=== PATIENT | male | born 1960 | race Caucasian/White ===

== ENCOUNTER 2017-09-15 18:19 | Emergency (ER) | payer OTHER ==
[~2017-09-15] VITALS: Ht 180.3 cm; Wt 74.8 kg
[2017-09-15 20:29] LABS: Source, Urine Clean Catch
[2017-09-15 20:31] LABS: Bilirubin, Urine Neg (Neg); Blood, Urine Neg (Neg); Glucose Qualitative, Urine 1+ (Neg); Ketones, Urine Neg (Neg); Leukocyte Esterase, Urine 1+ (Neg); Nitrite, Urine Neg (Neg); Protein, Urine 1+ (Neg); Specific Gravity, Urine 1.015 (1.003-1.022); Urobilinogen, Urine NORM (Normal); pH, Urine 6.5 (5.0-8.0)
[2017-09-15 20:38] LABS: Appearance, Urine Clear (Clear); Color, Urine Yellow (P-Yellow)
[2017-09-15 20:51] LABS: Bacteria Not Seen /hpf; Red Blood Cells, Urine Rare /hpf (0-2); Squamous Epithelial Cells Not Seen /hpf (Few); White Blood Cells, Urine Rare /hpf (0-5)
[2017-09-15 20:54] LABS: BASOPHILS ABSOLUTE AUTO 0.04 K/mm3 (0.00-0.23); BASOPHILS PERCENT AUTO 0 % (0-2); EOSINOPHILS ABSOLUTE AUTO 0.22 K/mm3 (0.00-0.68); EOSINOPHILS PERCENT AUTO 2 % (0-6); Hematocrit 34.8 % (37.0-53.0); Hemoglobin 11.5 g/dL (13.5-17.5); IMMATURE GRAN ABSOLUTE AUTO 0.02 K/mm3 (0.00-0.10); IMMATURE GRAN PERCENT AUTO 0 % (0-1); LYMPHOCYTES PERCENT AUTO 32 % (21-46); MONOCYTES ABSOLUTE AUTO 0.84 K/mm3 (0.16-1.47); MONOCYTES PERCENT AUTO 9 % (4-13); Mean Corpuscular HGB 30.8 pg (26.0-34.0); Mean Corpuscular Volume 93 fL (80-100); Mean Platelet Volume 10.4 fL (9.1-12.4); NEUTROPHILS ABSOLUTE AUTO 4.98 K/mm3 (1.96-9.15); NEUTROPHILS PERCENT AUTO 56 % (41-73); Platelet Count 303 K/mm3 (150-400); RDW Coefficient Variation 13.3 % (11.7-14.2); RDW Standard Deviation 45.1 fL (35.1-46.3); Red Blood Cell Count 3.73 M/mm3 (4.30-5.90)
[2017-09-15 21:08] LABS: Albumin, Blood 3.1 g/dL (3.4-5.0); Bilirubin, Total 0.3 mg/dL (0.1-1.0); Calcium, Blood 8.8 mg/dL (8.5-10.1); Creatinine, Blood 2.39 mg/dL (0.60-1.20); Globulin, Blood 3.1 g/dL (2.2-4.0); Potassium, Blood 4.4 mmol/L (3.5-5.5); Total Protein, Blood 6.2 g/dL (6.4-8.2)
== END 2017-09-15 21:29 | disposition home or self-care (01) ==
LOC: ER 18:19
PROVIDERS: Emergency Medicine
DX: N50.812 Left testicular pain (principal); N50.811 Right testicular pain; Z98.890 Other specified postprocedural states; Z88.0 Allergy status to penicillin
CPT/HCPCS: 36415; 80053; 81001; 83690; 85025; 87086; 99283

== ENCOUNTER 2019-02-19 12:07 | Emergency (ER) | payer OTHER ==
[~2019-02-19] VITALS: Ht 180.3 cm; Wt 70.3 kg
[2019-02-19 13:16] LABS: BASOPHILS ABSOLUTE AUTO 0.06 K/mm3 (0.00-0.23); BASOPHILS PERCENT AUTO 1 % (0-2); EOSINOPHILS ABSOLUTE AUTO 0.21 K/mm3 (0.00-0.68); EOSINOPHILS PERCENT AUTO 2 % (0-6); Hematocrit 41.4 % (37.0-53.0); Hemoglobin 13.8 g/dL (13.5-17.5); IMMATURE GRAN ABSOLUTE AUTO 0.05 K/mm3 (0.00-0.10); IMMATURE GRAN PERCENT AUTO 0 % (0-1); LYMPHOCYTES ABSOLUTE AUTO 2.42 K/mm3 (0.84-5.20); LYMPHOCYTES PERCENT AUTO 21 % (21-46); MONOCYTES ABSOLUTE AUTO 1.06 K/mm3 (0.16-1.47); MONOCYTES PERCENT AUTO 9 % (4-13); Mean Corpuscular HGB 31.8 pg (26.0-34.0); Mean Corpuscular HGB Conc 33.3 g/dL (31.5-36.5); Mean Corpuscular Volume 95 fL (80-100); NEUTROPHILS ABSOLUTE AUTO 7.67 K/mm3 (1.96-9.15); NEUTROPHILS PERCENT AUTO 67 % (41-73); Platelet Count 214 K/mm3 (150-400); RDW Coefficient Variation 12.3 % (11.7-14.2); RDW Standard Deviation 42.7 fL (35.1-46.3); Red Blood Cell Count 4.34 M/mm3 (4.30-5.90); White Blood Cell Count 11.47 K/mm3 (4.00-11.30)
[2019-02-19 13:41] LABS: Albumin/Globulin Ratio 1.2 (0.8-1.8); Bilirubin, Total 0.7 mg/dL (0.1-1.0); Bun/Creatinine Ratio 12.1 (12.0-20.0); Calcium, Blood 8.8 mg/dL (8.5-10.1); Creatinine, Blood 1.98 mg/dL (0.60-1.20); Globulin, Blood 3.2 g/dL (2.2-4.0); Potassium, Blood 4.4 mmol/L (3.5-5.5); Total Protein, Blood 7.2 g/dL (6.4-8.2)
[2019-02-19 18:07] LABS: Source, Urine Clean Catch
[2019-02-19 18:13] LABS: Bilirubin, Urine Neg (Neg); Blood, Urine Neg (Neg); Glucose Qualitative, Urine Neg (Neg); Ketones, Urine Neg (Neg); Leukocyte Esterase, Urine Neg (Neg); Nitrite, Urine Neg (Neg); Protein, Urine Neg (Neg); Urobilinogen, Urine NORM (Normal)
[2019-02-19 18:25] LABS: Appearance, Urine Clear (Clear); Color, Urine Yellow (P-Yellow)
[2019-02-19] MEDS ORDERED: ONDA4ODT MM (18:25)
[2019-07-04] MEDS ORDERED: ATOR80 PO (11:26)
[2019-07-04] MEDS ORDERED: ASPI81CH PO (11:26)
== END 2019-02-19 18:47 | disposition home or self-care (01) ==
LOC: ER 12:07
PROVIDERS: Emergency Medicine; Physician Assistant
DX: E86.0 Dehydration (principal); R03.0 Elevated blood-pressure reading, without diagnosis of hypertension; F17.210 Nicotine dependence, cigarettes, uncomplicated
CPT/HCPCS: 36415; 70450; 80053; 81003; 85025; 93005; 93010; 96360; 99284-25; J7120

== ENCOUNTER 2019-12-05 18:40 | Inpatient (IN) | payer OTHER ==
[~2019-12-05] VITALS: Ht 167.6 cm; Wt 70.0 kg
[~2019-12-05 18:40] MED LIST: ATOR80 PO; Aspirin EC81 MG PO; ONDA4ODT MM
[2019-12-05 20:01] LABS: BASOPHILS ABSOLUTE AUTO 0.07 K/mm3 (0.00-0.23); BASOPHILS PERCENT AUTO 1 % (0-2); EOSINOPHILS ABSOLUTE AUTO 0.28 K/mm3 (0.00-0.68); EOSINOPHILS PERCENT AUTO 3 % (0-6); Hematocrit 41.5 % (37.0-53.0); Hemoglobin 13.8 g/dL (13.5-17.5); IMMATURE GRAN ABSOLUTE AUTO 0.03 K/mm3 (0.00-0.10); IMMATURE GRAN PERCENT AUTO 0 % (0-1); LYMPHOCYTES ABSOLUTE AUTO 2.49 K/mm3 (0.84-5.20); LYMPHOCYTES PERCENT AUTO 26 % (21-46); MONOCYTES ABSOLUTE AUTO 1.13 K/mm3 (0.16-1.47); MONOCYTES PERCENT AUTO 12 % (4-13); Mean Corpuscular HGB 31.3 pg (26.0-34.0); Mean Corpuscular HGB Conc 33.3 g/dL (31.5-36.5); Mean Corpuscular Volume 94 fL (80-100); Mean Platelet Volume 11.4 fL (9.1-12.4); NEUTROPHILS ABSOLUTE AUTO 5.78 K/mm3 (1.96-9.15); NEUTROPHILS PERCENT AUTO 59 % (41-73); Platelet Count 215 K/mm3 (150-400); RDW Coefficient Variation 12.4 % (11.7-14.2); RDW Standard Deviation 43.2 fL (35.1-46.3); Red Blood Cell Count 4.41 M/mm3 (4.30-5.90); White Blood Cell Count 9.78 K/mm3 (4.00-11.30)
[2019-12-05 20:21] LABS: Albumin, Blood 3.7 g/dL (3.4-5.0); Albumin/Globulin Ratio 1.2 (0.8-1.8); Bilirubin, Total 0.7 mg/dL (0.1-1.0); Bun/Creatinine Ratio 9.7 (12.0-20.0); Calcium, Blood 8.8 mg/dL (8.5-10.1); Creatinine, Blood 2.37 mg/dL (0.60-1.20); Globulin, Blood 3.2 g/dL (2.2-4.0); Total Protein, Blood 6.9 g/dL (6.4-8.2)
[2019-12-05 21:04] LABS: International Normalized Ratio 0.93
[2019-12-05 21:23] LABS: Cholesterol 100 mg/dL (50-200); HDL Cholesterol 51 mg/dL (>39); LDL/HDL RATIO 0.7; Low Density Lipoprotein Chol 35 mg/dL (0-110); Triglycerides 68 mg/dL (30-160); Very Low Density Lipoprot Chol 13 mg/dL (6-32)
--- NOTE | 2019-12-05 23:27 | NUR ---
ADMIT NOTE RECEIVED HANDOFF FROM ER NURSE PRUDENCIO. PT TRANSFERED TO FLOOR VIA GURNEY. PERSONAL POSSESSIONS IN ROOM WITH PT. PT ORIENTED TO UNIT. CALL BUTTON WITHIN REACH.
--- NOTE | 2019-12-06 05:19 | NUR ---
SHIFT SUMMARY ADMITTED FOR CVA. FULL CODE. ONLY SYMPTOM SO FAR IS EXPRESSIVE APHASIA. HE DEFINITELY DOES NOT WANT TO BE HERE AND IS ONLY HERE AT HIS 'S ASSISTANCE. HEAD CT SHOWED TWO NEW SMALL INFARCTS. EXPECT CAROTID ULTRASOUND, 2D ECHO, MRI OF HEAD TO BE PERFORMED. HE IS ON TELEMETRY: NSR W/PVC'S @ 73 BPM. HE IS ON RA, CARDIAC DIET, INDEPENDENT. aPTT WAS 24.3, CREATININE 2.25. CURRENT EVERY DAY SMOKER. HX: TIA, HTN.
[2019-12-06 05:26] LABS: Albumin, Blood 3.4 g/dL (3.4-5.0); Anion Gap 7 mmol/L (6-16); Blood Urea Nitrogen 23 mg/dL (8-24); Bun/Creatinine Ratio 10.2 (12.0-20.0); CO2, Blood 22 mmol/L (21-32); Calcium, Blood 8.7 mg/dL (8.5-10.1); Chloride, Blood 116 mmol/L (98-108); Creatinine, Blood 2.25 mg/dL (0.60-1.20); Glomerular Filtration Rate 32 (60-); Glucose, Blood 90 mg/dL (70-99); Phosphorus, Blood 3.2 mg/dL (2.5-4.9); Potassium, Blood 3.9 mmol/L (3.5-5.5); Sodium, Blood 145 mmol/L (136-145)
--- NOTE | 2019-12-06 10:22 | NUR ---
Echocardiogram completed by Lupe Chow.
--- NOTE | 2019-12-06 17:16 | NUR ---
SHIFT SUMMARY: NO ACUTE EVENTS TO REPORT THIS SHIFT. PT A&O; IRRITABLE; COOPERATIVE WITH CARE; INDEPENDENT IN ROOM. NO C/O PAIN THIS SHIFT. MRI THIS SHIFT; TWO NEW INFARCTS. SPEECH EVAL THIS SHIFT; PT AMBIVALENT T/O TEST, PER S/T. FAMILY MEMBERS UPDATED ON PLAN VIA TELEPHONE. WCTM.
--- NOTE | 2019-12-07 04:56 | NUR ---
PAINT GRINDER SUMMARY NO ACUTE CHANGES THIS SHIFT. PT AAOX4 AND INDEPENDENT IN ROOM. STILL HAVING EXPRESSIVE APHASIA. CAN SOMETIMES SAY YES/NO BUT MOSTLY COMMUNICATES BY SHAKING HIS HEAD. PT IRRITABLE WITH CARE AT TIMES AND IS EAGER TO GO HOME. PT'S DTR AND BOTH CALLED IN FOR UPDATES TONIGHT. RECIEVED PERMISSION FROM PT TO GIVE INFORMATION. VSS, WILL CONTINUE TO MONITOR.
[2019-12-07] MEDS ORDERED: ELIQUIS5 MG PO (10:05)
[2019-12-07] MEDS ORDERED: WARF5 PO (11:07)
--- NOTE | 2019-12-07 11:27 | NUR ---
PATIENT DISCHARGE: PATIENT DISCHARGED/XFR TO HOME HEALTH THIS SHIFT. MEDICATION RECONCILIATION COMPLETED; MED LIST FAXED TO [facility]. DISCHARGE EDUCATION COMPLETED WITH PATIENT AND SPOUSE. PATIENT TRANSPORTED TO EXIT BY [facility] STAFF WITH WHEELCHAIR AT 1120. PATIENT DEPARTED [facility] VIA PRIVATE AUTO.
== END 2019-12-07 11:21 | disposition home health service (06) | DRG 65 ==
LOC: ER 18:40 → MEDS 18:41 → ENPENDDIS 12-07 09:50 → MEDS 12-07 11:21
PROVIDERS: Emergency Medicine; ADMIT Family Medicine
DX: I63.9 Cerebral infarction, unspecified (principal); E87.0 Hyperosmolality and hypernatremia; R47.01 Aphasia; E78.5 Hyperlipidemia, unspecified; I12.9 Hypertensive chronic kidney disease with stage 1 through stage 4 chronic kidney disease, or unspecified chronic kidney disease; N18.3 Chronic kidney disease, stage 3 (moderate); Z86.73 Personal history of transient ischemic attack (TIA), and cerebral infarction without residual deficits; Z79.82 Long term (current) use of aspirin; F17.210 Nicotine dependence, cigarettes, uncomplicated
CPT/HCPCS: 36415; 70450; 70551; 71045; 80053; 80061; 80069; 85025; 85610; 85730; 92523; 93005; 93010; 93308; 93880; 99285-25; A9270-GY; G0378

== ENCOUNTER 2020-06-24 18:48 | Inpatient (IN) | payer OTHER ==
[~2020-06-24] VITALS: Ht 180.3 cm; Wt 67.3 kg
[~2020-06-24 18:48] MED LIST changes: -ATOR80 PO; -Aspirin EC81 MG PO; +ELIQUIS5 MG PO; +WARF5 PO
[2020-06-24 20:20] LABS: LYMPHOCYTES PERCENT AUTO 14 % (21-46); MONOCYTES PERCENT AUTO 14 % (4-13); Mean Corpuscular HGB 30.2 pg (26.0-34.0); Mean Corpuscular HGB Conc 29.7 g/dL (31.5-36.5); Mean Corpuscular Volume 102 fL (80-100); Mean Platelet Volume 11.7 fL (9.1-12.4); Platelet Count 244 K/mm3 (150-400); RDW Coefficient Variation 14.5 % (11.7-14.2); RDW Standard Deviation 52.8 fL (35.1-46.3); Red Blood Cell Count 1.69 M/mm3 (4.30-5.90); White Blood Cell Count 10.07 K/mm3 (4.00-11.30)
[2020-06-24 20:22] LABS: BASOPHILS ABSOLUTE AUTO 0.05 K/mm3 (0.00-0.23); BASOPHILS PERCENT AUTO 1 % (0-2); EOSINOPHILS ABSOLUTE AUTO 0.35 K/mm3 (0.00-0.68); EOSINOPHILS PERCENT AUTO 4 % (0-6); IMMATURE GRAN ABSOLUTE AUTO 0.06 K/mm3 (0.00-0.10); IMMATURE GRAN PERCENT AUTO 1 % (0-1); LYMPHOCYTES ABSOLUTE AUTO 1.41 K/mm3 (0.84-5.20); MONOCYTES ABSOLUTE AUTO 1.38 K/mm3 (0.16-1.47); NEUTROPHILS PERCENT AUTO 68 % (41-73)
[2020-06-24 20:26] LABS: Hematocrit 16.8 % (37.0-53.0); Hemoglobin 4.9 g/dL (13.5-17.5)
[2020-06-24 20:47] LABS: Albumin, Blood 2.8 g/dL (3.4-5.0); Albumin/Globulin Ratio 0.8 (0.8-1.8); Bilirubin, Total 0.3 mg/dL (0.1-1.0); Bun/Creatinine Ratio 9.6 (12.0-20.0); Calcium, Blood 7.7 mg/dL (8.5-10.1); Creatinine, Blood 9.77 mg/dL (0.60-1.20); Globulin, Blood 3.4 g/dL (2.2-4.0); Potassium, Blood 5.2 mmol/L (3.5-5.5); Total Protein, Blood 6.2 g/dL (6.4-8.2)
[2020-06-24] MEDS ORDERED: ELIQUIS5 MG PO (21:18)
[2020-06-24] MEDS ORDERED: Aspirin EC81 MG PO (21:18)
[2020-06-24] MEDS ORDERED: ATOR40TA PO (21:18)
[2020-06-24 21:29] LABS: Percent Saturation 11.9 % (20.0-50.0)
[2020-06-24 23:41] LABS: International Normalized Ratio 1.03
--- NOTE | 2020-06-25 | NUR ---
PT ADMITTED TO ICU 10 FROM ER. PT IS ALERT, ABLE TO COMMUNICATE NEEDS, THOUGH STATES HE IS POOR HISTORIAN AND HIS IS ABLE TO GIVE HIS HEALTH HISTORY MORE COMPLETELY. HOWEVER, PT ABLE TO PARTICIPATE IN ADMIT PROCESS, SEEMINGLY WO DIFFICULTY. DENIES PAIN, PT NOTED TO HAVE EXERTIONAL SOB, AND IS SOB WHEN REPOSITIONING SELF IN BED. NO DESATURATIONS, PT IS ON ROOM AIR. LUNGS CLEAR UPPER, SL COARSE IN BASES, NO CRACKLES. PT STATES HE QUIT SMOKING ONE MONTH AGO. PT STATES HE HAS HAD SIGNIFICANT ANKLE SWELLING AND SOB FOR SEVERAL WEEKS. 24H URINE COLLECTION WAS INITIATED ON ARRIVAL TO UNIT. URINE NOTED W SOME BLOOD BUT NOT GROSSLY BLOODY. SECOND IV WAS STARTED ESPINOZA BY Daisy HUDDLESTON RN.
--- NOTE | 2020-06-25 05:35 | NUR ---
SECOND UNIT PRBC'S FINISHED. PT STATES HE FEELS LESS SOB- MAYBE. PT CAME IN 0230. VSS, CONT ON RA. DENIES OTHER DISCOMFORT. GI CONSULT CALLED TO , NO SIGN OF BLEEDING. LATE NOTE: DR JAIME SAW PT AT BEDSIDE SHORTLY AFTER ARRIVAL.
[2020-06-25 06:55] LABS: BASOPHILS ABSOLUTE AUTO 0.06 K/mm3 (0.00-0.23); BASOPHILS PERCENT AUTO 1 % (0-2); EOSINOPHILS ABSOLUTE AUTO 0.21 K/mm3 (0.00-0.68); EOSINOPHILS PERCENT AUTO 3 % (0-6); Hematocrit 21.8 % (37.0-53.0); Hemoglobin 6.8 g/dL (13.5-17.5); IMMATURE GRAN ABSOLUTE AUTO 0.04 K/mm3 (0.00-0.10); IMMATURE GRAN PERCENT AUTO 1 % (0-1); LYMPHOCYTES ABSOLUTE AUTO 1.23 K/mm3 (0.84-5.20); LYMPHOCYTES PERCENT AUTO 15 % (21-46); MONOCYTES ABSOLUTE AUTO 1.06 K/mm3 (0.16-1.47); MONOCYTES PERCENT AUTO 13 % (4-13); Mean Corpuscular HGB 29.6 pg (26.0-34.0); Mean Corpuscular HGB Conc 31.2 g/dL (31.5-36.5); Mean Platelet Volume 11.5 fL (9.1-12.4); NEUTROPHILS ABSOLUTE AUTO 5.86 K/mm3 (1.96-9.15); NEUTROPHILS PERCENT AUTO 69 % (41-73); Platelet Count 249 K/mm3 (150-400); RDW Coefficient Variation 15.2 % (11.7-14.2); RDW Standard Deviation 51.5 fL (35.1-46.3); White Blood Cell Count 8.46 K/mm3 (4.00-11.30)
[2020-06-25 06:57] LABS: Mean Corpuscular Volume 95 fL (80-100)
[2020-06-25 07:16] LABS: CPK Creatine Kinase 72 U/L (39-308); Uric Acid, Blood 8.4 mg/dL (3.5-7.2)
[2020-06-25 07:45] LABS: Albumin, Blood 2.8 g/dL (3.4-5.0); Anion Gap 11 mmol/L (6-16); Blood Urea Nitrogen 88 mg/dL (8-24); Bun/Creatinine Ratio 10.1 (12.0-20.0); CO2, Blood 19 mmol/L (21-32); Calcium, Blood 7.7 mg/dL (8.5-10.1); Chloride, Blood 115 mmol/L (98-108); Creatinine, Blood 8.71 mg/dL (0.60-1.20); Glomerular Filtration Rate 7 (60-); Glucose, Blood 98 mg/dL (70-99); Phosphorus, Blood 7.1 mg/dL (2.5-4.9); Potassium, Blood 4.3 mmol/L (3.5-5.5); Sodium, Blood 145 mmol/L (136-145)
--- NOTE | 2020-06-25 08:00 | NUR ---
ASSUMED CARE BEDSIDE REPORT RECIEVED. PT IS LAYING IN BED AWAKE, ALERT, AND ORIENTED. PT IS SLOW TO RESPOND AND SPEAKS SLOWLY. PT FOLLOWING DIRECTIONS APPROPRIATELY. PT DENIES ANY PAIN, DISCOMFORT, OR SOB. PT BECOMES DYSPNIC WITH ANY MOVEMENT IN BED. VITAL SIGNS STABLE. PT ON ROOM AIR. BICARB INFUSING AT 100 ML/HR AND PROTONIX INFUSING AT 10 ML/HR. PT WITH ENGLE TEMP PROBE IN PLACE WITH LUISA OUTPUT NOTED. 24 HR URINE COLLECTION IN PROGRESS, ENGLE BAG AND COLLECTION CANISTER ON ICE. 24 HR URINE TO BE COMPLETED AT 2200 TONIGHT. PT REPOSITIONS SELF IN BED INDEPENDENTLY. PT SPOUSE CALLED FOR UPDATE, UPDATED TO PT CONDITION. PT OK WITH GIVING HER UPDATES, BUT HE DOES NOT WANT TO SPEAK WITH HER AT THIS TIME. WILL CONTINUE TO MONITOR.
[2020-06-25 12:21] LABS: Hematocrit 23.6 % (37.0-53.0); Hemoglobin 7.5 g/dL (13.5-17.5)
--- NOTE | 2020-06-25 17:10 | NUR ---
EGD DR KIRBY AND DAY SURGERY TEAM AT BEDSIDE FOR EGD. PT LAYING ON SIDE, ALERT AT THIS TIME. VITAL SIGNS STABLE.
--- NOTE | 2020-06-25 17:11 | NUR ---
PREOPING PT IN ICU. History, Chart, Medications and Allergies reviewed before start of procedure. Lungs clear T/O to Auscultation. Pre-Op teaching done. Pt verbalizes understanding.
--- NOTE | 2020-06-25 17:38 | NUR ---
06/25/20 1738 DEMETRIO LONG History, Chart, Medications and Allergies reviewed before start of procedure. 3-LEAD EKG REVIEWED WITH PHYSICIAN PRIOR TO START OF PROCEDURE. O2 VIA N/C INTACT THROUGHOUT SEDATION/PROCEDURE. MONITOR INTACT WITH CONTINUOUS PULSE OXIMETRY AND INTERMITTENT BP. PATIENT DETERMINED TO BE ASA APPROPRIATE FOR PROPOFOL SEDATION PRIOR TO START OF PROCEDURE BY
--- NOTE | 2020-06-25 18:11 | NUR ---
SHIFT SUMMARY NO ACUTE CHANGES THIS SHIFT. PT HAS REMAINED ALERT AND ORIENTED. VITAL SIGNS HAVE REMAINED STABLE. PT TOLERATED PO DIET WELL. NO ACUTE SIGNS OF GI BLEEDING NOTED. EGD DONE THIS EVENING. PROTONIX GTT DISCONTINUED PER DR KIRBY. BICARB GTT INFUSING AT 75 ML/HR. ENGLE REMAINS IN PLACE WITH DRAINAGE BAG ON ICE. PT WITH LARGE VOLUME OF PINK TINGED URINE OUTPUT THIS SHIFT. NO FAMILY VISIT TODAY. WILL CONTINUE TO MONITOR AND REPORT OFF TO ONCOMING RN.
--- NOTE | 2020-06-25 20:00 | NUR ---
ASSUMED CARE OF PT AT 1915. REPORT RECEIVED AT BEDSIDE. PT PRESENTS IN BED. ALERT AND ORIENTED PLEASANT AND COOPERATIVE WITH CARE AND ASSESSMENT. NO COMPLAINTS OF GI UPSET AT THIS TIME. IN PROCESS OF 24 HOUR URINE COLLECTION THAT WILL TIME OUT AT 2200 THIS EVENING. WILL REVIEW CHART AND PLAN OF CARE FOR THIS PT.
[2020-06-25 23:40] LABS: Protein, Urine Quantitative 174.6 mg/dL (0.0-11.9)
--- NOTE | 2020-06-26 00:30 | NUR ---
PT REQUIRES SUPPLEMENTAL OXYGEN WHILE ASLEEP. TRENDS TO 87-89 PERCENT SATURATIONS. PT HAS NO S/S BLEEDING OR ANY OTHER ISSUES TO REPORT. ABLE TO MOVE ABOUT IN BED. HAVE ASSISTED WITH PILLOWS WHEN HE NEEDS.
[2020-06-26 03:24] LABS: Hematocrit 21.2 % (37.0-53.0); Hemoglobin 6.7 g/dL (13.5-17.5)
[2020-06-26 03:42] LABS: Albumin, Blood 2.3 g/dL (3.4-5.0); Anion Gap 10 mmol/L (6-16); Blood Urea Nitrogen 68 mg/dL (8-24); Bun/Creatinine Ratio 9.6 (12.0-20.0); CO2, Blood 24 mmol/L (21-32); Calcium, Blood 7.2 mg/dL (8.5-10.1); Chloride, Blood 115 mmol/L (98-108); Creatinine, Blood 7.08 mg/dL (0.60-1.20); Glomerular Filtration Rate 8 (60-); Glucose, Blood 158 mg/dL (70-99); Magnesium, Blood 1.6 mg/dL (1.6-2.4); Phosphorus, Blood 7.1 mg/dL (2.5-4.9); Potassium, Blood 3.8 mmol/L (3.5-5.5); Sodium, Blood 149 mmol/L (136-145)
--- NOTE | 2020-06-26 05:50 | NUR ---
CALL MADE TO DR PRESTON CONCERNING PT HAVING DROP IN HGB FROM PREVIOUS. ORDER RECEIVED FOR ONE UNIT PRBC'S TO BE GIVEN. NO S/S ACTIVE BLEEDING TO NOTE. HAVE COMPLETED 24 HOUR URINE COLLECTION DURING EVENING. SENT TO LAB FOR PROCESSING. PT ABLE TO MOVE ABOUT IN BED ON HIS OWN. ASSISTED NEEDED. WILL CONTINUE TO MONITOR PT, AND WILL REPORT OFF TO ONCOMING RN.
--- NOTE | 2020-06-26 07:30 | NUR ---
ASSUMED CARE BEDSIDE REPORT RECIEVED. PT IS LAYING IN BED AWAKE, ALERT, AND ORIENTED. PT IS PLEASANT, BUT FLAT AFFECT. PT ANSWERS QUESTIONS APPROPRIATELY. PT DENIES ANY PAIN, DISCOMFORT, OR SOB AT THIS TIME. VITAL SIGNS STABLE. PT ON ROOM AIR. PT HYPERTENSIVE. UNIT OF PRBC'S INFUSING AT THIS TIME. ORDERS TO START D5 AT 75 ML/HR NOTED. ENGLE IN PLACE WITH YELLOW URINE OUTPUT NOTED. PT TURNS AND REPOSITIONS SELF IN BED FOR COMFORT. PT WITH DYSPNEA WHEN REPOSITIONING SELF. NO FAMILY PRESENT. WILL CONTINUE TO MONITOR.
--- NOTE | 2020-06-26 14:36 | NUR ---
TRANSFER TO MEDICAL REPORT CALLED VIA PHONE, ALL QUESTIONS ANSWERED. PT TRANSFERED BY BED TO ROOM 350 AT 1415. ALL MEDS AND PT BELONGINGS TAKEN WITH PT.
--- NOTE | 2020-06-26 14:50 | NUR ---
ICU TRANSFER TO SCU 350. PT IS A/O X3-4, ABLE TO RECALL EVENTS OF ADMIT. STATE NO DISCOMFORT. ENGLE CATH D/C'D/DR NEWTON ORDER, PT INSTRUCTED TO USE URINAL. BLE EDEMA MINIMAL LESS THAN 1+, PT STATE MUCH IMPROVED FROM ADMIT. H&H LOW 6.1/21.2, METER ENGINEER REPORT EGD YESTERDAY w NO ACTIVE BLEED, PT RECIEVED ONE UNIT PRBC THIS AM. DR KIRBY CONSULTED FOR GI. GFR 8, DR JAIME MANAGING RENAL FX. IV D5 @ 50 ML/HR CONTINUES VIA ESPINOZA PG.
[2020-06-26 19:20] LABS: PCO2 Arterial 29.6 mmHg (35-45); PO2 Arterial 60.4 mmHg (80-100); pH Blood Arterial 7.45 (7.35-7.45)
--- NOTE | 2020-06-26 20:27 | NUR ---
CARE ASSUMPTION PT BROUGHT TO PCU 15 FROM MEDICAL FLOOR AT APPROX 2020. PT A&OX4. PT AMBULATED INDEPENDENTLY FROM MEDICAL BED TO PCU BED FROM HALLWAY. MONITOR SHOWS, A FIB, HR 160'S. PT DENIES SYMPTOMS WITH ELEVATED HR. VSS. SP02>92% ON RA. WILL CONTINUE TO MONITOR.
--- NOTE | 2020-06-26 20:58 | NUR ---
RAPID HEART RATE AT CHANGE OF SHIFT, PT HEART RATE NOTED TO BE IN THE 160S DURING VITALS. RADIAL PALPATION AND AUSCULTATED HEART RATE WERE FAST AND IRREGULAR. THE DAY HOSPITALIST DR NEWTON WAS INFORMED, AND AN EKG, ABG AND CHEST XRAY ORDERED. EKG SHOWED SVT PER EKG REPORT. HOSPITALIST DR GAMEZ NOTIFIED. HE ORDERED A OT ADENOSINE PUSH, WHICH IS UNABLE TO BE GIVEN ON MED FLOOR. PT DENIED ANY CHEST PAIN, SOB, OR LIGHTHEADEDNESS. NO CHANGES IN MENTATION. RESPIRATORY RATE WAS ELEVATED IN THE 26-30S, BUT VITAL SIGNS OTHERWISE STABLE. DR GAMEZ ORDERED TRANSFER TO PCU. TELE MONITOR PLACED WHILE AWAITING BED ASSIGNMENT, WHICH SHOWED AFIB WITH RVR PER TELE SENIOR BENEFITS ANALYST. REPORT GIVEN TO DELONTE IN PCU. PT TRANSFERED TO [facility] AT 2019.
--- NOTE | 2020-06-26 21:16 | NUR ---
CALL TO CALL TO MD GAMEZ TO CLARIFY ADENOSINE ORDER AND REPORT PT IN AFIB, HR 140's-160's TOUCHING 180's OCCASIONALLY. MD GAMEZ WITH ORDERS TO D/C ADENOSINE ORDER AND GIVE 20 MG IV CARDIZEM PUSH INSTEAD WELL 25 MG PO METOPROLOL IR, SEE ORDERS. ALSO WITH ORDERS FOR STRAIGHT CATH Q6H D/T BLADDER SCAN SHOWING 563 MLS. ALSO WITH ORDERS FOR Q4H CBG MONITORING D/T D5 DRIP INFUSING. WILL CONTINUE TO MONITOR.
--- NOTE | 2020-06-26 23:30 | NUR ---
HR / CALL FROM MD CALL FROM MD GAMEZ TO RE-EVALUATE PT HR. MD INFORMED OF PT HR DECREASE FROM 160's TO 90's-110 AFTER IV CARDIZEM PUSH & PO METOPROLOL PER ORDERS, BUT HR & RHYTHM THEN INCREASED AGAIN TO 130's-140's & APPEARS TO BE AFLUTTER. W/ NEW ORDERS FOR 25MG PO METOPROLOL Q8H, FIRST DOSE NOW.
--- NOTE | 2020-06-27 02:00 | NUR ---
SINUS RHYTHM PT CONVERTED FROM AFIB TO SR AT APPROX 0130. HR 70'S. THIS RN NOTIFIED BY AGNIESZKA FROM TELEMETRY. WILL CONTINUE TO MONITOR
[2020-06-27 04:32] LABS: BASOPHILS ABSOLUTE AUTO 0.05 K/mm3 (0.00-0.23); BASOPHILS PERCENT AUTO 1 % (0-2); EOSINOPHILS ABSOLUTE AUTO 0.43 K/mm3 (0.00-0.68); EOSINOPHILS PERCENT AUTO 4 % (0-6); Hematocrit 24.4 % (37.0-53.0); Hemoglobin 7.8 g/dL (13.5-17.5); IMMATURE GRAN ABSOLUTE AUTO 0.05 K/mm3 (0.00-0.10); IMMATURE GRAN PERCENT AUTO 1 % (0-1); LYMPHOCYTES ABSOLUTE AUTO 1.52 K/mm3 (0.84-5.20); LYMPHOCYTES PERCENT AUTO 14 % (21-46); MONOCYTES ABSOLUTE AUTO 1.78 K/mm3 (0.16-1.47); MONOCYTES PERCENT AUTO 17 % (4-13); Mean Corpuscular HGB 29.7 pg (26.0-34.0); Mean Corpuscular Volume 93 fL (80-100); Mean Platelet Volume 11.6 fL (9.1-12.4); NEUTROPHILS ABSOLUTE AUTO 6.95 K/mm3 (1.96-9.15); NEUTROPHILS PERCENT AUTO 64 % (41-73); Platelet Count 230 K/mm3 (150-400); RDW Coefficient Variation 15.9 % (11.7-14.2); RDW Standard Deviation 53.1 fL (35.1-46.3); Red Blood Cell Count 2.63 M/mm3 (4.30-5.90); White Blood Cell Count 10.78 K/mm3 (4.00-11.30)
[2020-06-27 04:48] LABS: Albumin, Blood 2.3 g/dL (3.4-5.0); Anion Gap 9 mmol/L (6-16); Blood Urea Nitrogen 64 mg/dL (8-24); Bun/Creatinine Ratio 10.2 (12.0-20.0); CO2, Blood 24 mmol/L (21-32); Calcium, Blood 7.4 mg/dL (8.5-10.1); Chloride, Blood 112 mmol/L (98-108); Creatinine, Blood 6.29 mg/dL (0.60-1.20); Glomerular Filtration Rate 10 (60-); Glucose, Blood 100 mg/dL (70-99); Magnesium, Blood 1.5 mg/dL (1.6-2.4); Phosphorus, Blood 4.9 mg/dL (2.5-4.9); Potassium, Blood 3.4 mmol/L (3.5-5.5); Sodium, Blood 145 mmol/L (136-145)
--- NOTE | 2020-06-27 07:58 | NUR ---
SHIFT SUMMARY PT TRANSFERRED TO PCU FROM MEDICAL FLOOR THIS SHIFT. SEE CARE ASSUMPTION NOTE. PT A&OX4. SP02>90% ON RA. TELEMTRY READ AFIB BEGINNING OF SHIFT, PT CONVERTED TO SR AT APPROX 0200, SEE PREVIOUS NOTE. PT DENIES ABILITY TO VOID. PERFORMED BLADDER SCAN WHICH SHOWED 563 MLS. USED A STRAIGHT CATHETER, DRAINED 600 MLS. PT DENIES PAIN. PT ASKED FOR AND ATE SNACKS TWICE DURING NIGHT. SLEPT T/O MOST OF SHIFT AFTER ARRIVAL TO PCU. D5 INFUSING PER EMAR. WILL CONTINUE TO MONITOR.
--- NOTE | 2020-06-27 10:21 | NUR ---
The pt awakens easily to verbal stimuli, states that he wants to go back to sleep. Said that he has not voided at all; Noted last urine output was 2330 last night and I cleared over 1000cc from the IV pump this morning. Bladder scan done, and noted 590cc. Pt attempting to stand and use urinal at the bedside. He denies any discomfort, fullness or pain. D5W infusing at 75cc/hour. Pt was able to take oral medications without difficulty.
--- NOTE | 2020-06-27 10:59 | NUR ---
PT was only able to void about 50 cc after bladder scan revealed 590 cc. Straight catheterization removed 750 cc clear yellow urine.
--- NOTE | 2020-06-27 14:40 | NUR ---
Voided 100 cc clear light yellow urine. States had BM on toilet, flushed it and didn't really look at it, so uncertain of the color/consistency of it.
--- NOTE | 2020-06-27 15:25 | NUR ---
Galo is lying on his right side, HOB at 15 degrees. No dyspnea, no c/o discomfort or shortness of breath. Vital signs stable. Took oral medications with water without any difficulty. NO needs voiced at this time.
[2020-06-27 16:07] LABS: A/G RATIO 1.4 (0.7-1.7); ALBUMIN 3.1 g/dL (2.9-4.4); ALPHA-1-GLOBULIN 0.3 g/dL (0.0-0.4); ALPHA-2-GLOBULIN 0.8 g/dL (0.4-1.0); BETA GLOBULIN 0.7 g/dL (0.7-1.3); GAMMA GLOBULIN 0.5 g/dL (0.4-1.8); GLOBULIN, TOTAL 2.3 g/dL (2.2-3.9); IMMUNOGLOBULIN A, QN, SERUM 169 mg/dL (90-386); IMMUNOGLOBULIN G, QN, SERUM 577 mg/dL (603-1613); IMMUNOGLOBULIN M, QN, SERUM 94 mg/dL (20-172); M-SPIKE Not Observed g/dL (Not Observed); PROTEIN, TOTAL, SERUM 5.4 g/dL (6.0-8.5)
--- NOTE | 2020-06-27 17:28 | NUR ---
Explained to pt need for urinary catheter. Pt lying in bed, able to independently reposition to supine position. Dc catheter inserted using aseptic technique. Pt tolerated it well, and immediately noted 600 cc clear yellow urine evacuated. PT now sitting up in bed, eating dinner and talking on the phone.
--- NOTE | 2020-06-27 18:37 | NUR ---
summary Alert, oriented and independently amublatory in the room and to the bathroom. Good appetite, had bowel movement today, pt states he thinks it was normal. Unable to void except for twice, 50-100 cc at a time. Straight cath once for 600cc urine, and this evening placed Dc catheter and have drained over 1 liter since its insertion one hour ago. Pt is getting IV lasix BID. No c/o pain, no c/o dyspnea/shortness of breath. Has remained in normal sinus rhythm throughout the shift. Blood pressure stable. Taking medications by mouth without any difficulty.
--- NOTE | 2020-06-27 20:25 | NUR ---
PT HANDOFF REPORT GIVEN TO MARC ARAMBULA AND MARC THOMPSON TO ASSUME PT CARE.
--- NOTE | 2020-06-27 20:26 | NUR ---
ASSUMED CARE OF PATIENT AT THIS TIME. RECIEVED REPORT FROM NURSE TYLER AND VONNIE. PATIENT IS CURRENTLY IN BED SLEEPING. CALL LIGHT IS WITHIN REACH.
--- NOTE | 2020-06-27 22:20 | NUR ---
ASSUMED CARE RECIEVED REPORT FROM MARC ARAMBULA AND MARC THOMPSON.
[2020-06-28 05:20] LABS: Base Excess Venous -2.5 mmol/L; PO2 Venous 41.8 mmHg (38-42); pH Blood Venous 7.35 (7.34-7.37)
[2020-06-28 05:25] LABS: BASOPHILS ABSOLUTE AUTO 0.06 K/mm3 (0.00-0.23); BASOPHILS PERCENT AUTO 1 % (0-2); EOSINOPHILS ABSOLUTE AUTO 0.49 K/mm3 (0.00-0.68); EOSINOPHILS PERCENT AUTO 4 % (0-6); Hematocrit 28.5 % (37.0-53.0); Hemoglobin 8.8 g/dL (13.5-17.5); IMMATURE GRAN ABSOLUTE AUTO 0.08 K/mm3 (0.00-0.10); IMMATURE GRAN PERCENT AUTO 1 % (0-1); LYMPHOCYTES ABSOLUTE AUTO 1.31 K/mm3 (0.84-5.20); LYMPHOCYTES PERCENT AUTO 11 % (21-46); MONOCYTES PERCENT AUTO 12 % (4-13); Mean Corpuscular HGB 29.1 pg (26.0-34.0); Mean Corpuscular HGB Conc 30.9 g/dL (31.5-36.5); Mean Corpuscular Volume 94 fL (80-100); Mean Platelet Volume 11.7 fL (9.1-12.4); NEUTROPHILS ABSOLUTE AUTO 8.32 K/mm3 (1.96-9.15); NEUTROPHILS PERCENT AUTO 71 % (41-73); Platelet Count 248 K/mm3 (150-400); RDW Coefficient Variation 15.5 % (11.7-14.2); RDW Standard Deviation 52.9 fL (35.1-46.3); Red Blood Cell Count 3.02 M/mm3 (4.30-5.90); White Blood Cell Count 11.66 K/mm3 (4.00-11.30)
[2020-06-28 05:41] LABS: Albumin, Blood 2.7 g/dL (3.4-5.0); Anion Gap 9 mmol/L (6-16); Blood Urea Nitrogen 66 mg/dL (8-24); Bun/Creatinine Ratio 10.2 (12.0-20.0); CO2, Blood 24 mmol/L (21-32); Calcium, Blood 7.9 mg/dL (8.5-10.1); Chloride, Blood 114 mmol/L (98-108); Creatinine, Blood 6.44 mg/dL (0.60-1.20); Glomerular Filtration Rate 9 (60-); Glucose, Blood 96 mg/dL (70-99); Magnesium, Blood 1.8 mg/dL (1.6-2.4); Phosphorus, Blood 5.2 mg/dL (2.5-4.9); Sodium, Blood 147 mmol/L (136-145)
--- NOTE | 2020-06-28 06:11 | NUR ---
SHIFT SUMMARY PT SLEPT T/O SHIFT. OXYGEN SATURATION WAS 88% ON RA. PT PUT ON 2-3 L OF OXYGEN VIA NASAL CANULA. OXYGEN SATURATION MAINTAINED ABOVE 92% ON 2-3 LITER OF OXYGEN. HR STABLE. BP STABLE. PT REPORTS NO CHEST PAIN OR PRESSURE. PT ALERT AND ORIENTED AND ABLE TO MOVE INDEPENDENTLY. WILL CONTINUE TO MONITOR UNTIL REPORT GIVEN TO DAYSHIFT RN.
--- NOTE | 2020-06-28 19:16 | NUR ---
PT AOX4 AND COOPERATIVE OF CARE. PT HAS BEEN IN BED ALL DAY RESTING. PT DENIED ANY PAIN AND CAN CALL APPROPRIATELY. PT'S ENGLE IS FLOWING WELL. NO DISTRESS NOTED WILL CONTINUE TO MONITOR.
--- NOTE | 2020-06-29 06:28 | NUR ---
PT HANDOFF REPORT GIVEN TO MARC THOMPSON ON MEDICAL FLOOR. PT TRANSPORTED TO MEDICAL FLOOR, ROOM 355 BY BED WITH MARC SCOTT AND RAMSEY ALVARADO.
--- NOTE | 2020-06-29 06:37 | NUR ---
SHIFT SUMMARY PT SLEPT T/O SHIFT. PT ALERT AND ORIENTED. PT REPORTS NO CP OR PRESSURE. ENGLE PATENT AND TO GRAVITY DRAIN. PT INDEPENDENT WITHIN ROOM. OXYGEN SATURATION MAINTAINED ABOVE 92% ON RA. 2 L OF OXYGEN NEEDED PRN D/T OXYGEN SATURATION DECREASING TO 89% WHILE SLEEPING. HR STABLE. BP STABLE, MAP ABOVE 65. PT REPORTS NO CP OR PRESSURE. PT TRANSPORTED TO MEDICAL FLOOR AT 0640 TO ROOM 355 WITH MARC SCOTT. REPORT GIVEN TO MARC THOMPSON.
[2020-06-29 06:39] LABS: Hematocrit 30.4 % (37.0-53.0); Hemoglobin 9.3 g/dL (13.5-17.5)
--- NOTE | 2020-06-29 06:44 | NUR ---
PT ARRIVED FROM PCU VIA BED AT THIS TIME REPORT RECIEVED FROM MARC SCOTT. PATIENT ORIENTED TO UNIT AND CALL LIGHT IN REACH. PATIENT CURRENTLY SITTING UP IN BED WATCHING TV. DENIED ANY NEEDS OR PAIN AT THIS TIME. ENGLE IS PATENT AND DRAINING. TELE IS SINUS 88 WITH FREQUENT PAC'S PER ORTHOPAEDIC TECHNOLOGIST. WILL HAND OFF TO ONCOMING SHIFT ONCE THEY ARRIVE.
[2020-06-29 06:58] LABS: Albumin, Blood 2.6 g/dL (3.4-5.0); Anion Gap 11 mmol/L (6-16); Blood Urea Nitrogen 65 mg/dL (8-24); Bun/Creatinine Ratio 11.7 (12.0-20.0); CO2, Blood 21 mmol/L (21-32); Chloride, Blood 112 mmol/L (98-108); Creatinine, Blood 5.57 mg/dL (0.60-1.20); Glomerular Filtration Rate 11 (60-); Glucose, Blood 102 mg/dL (70-99); Magnesium, Blood 1.7 mg/dL (1.6-2.4); Sodium, Blood 144 mmol/L (136-145)
--- NOTE | 2020-06-29 09:10 | NUR ---
TELE FARMWORKER [employer] REPORTS HR 150. DR GAO IN ROOM. SHE SAYS SHE WILL LOOK AT THE STRIPS DOWNSTAIRS AND EVALUATE. PATIENT IS ASSYMPTOMATIC. METOPROLOL GIVEN PER ORDERS AND VERBAL INTRUCTION FROM DR GAO. APICAL HR 54.
--- NOTE | 2020-06-29 11:09 | NUR ---
telemetry update: school bus monitor reports HR is in 80's and has sustained since 1000
--- NOTE | 2020-06-29 17:26 | NUR ---
SHIFT SUMMARY PATIENT HAD EPISODE OF HR 150'S, TELE HOME SERVICE TECHNICIAN REPORTED SR WITH FREQUENT PVCS, DR GAO SAID IT LOOKED LIKE AFIB, BP REMAINS LOWER RANGE 90-100'S SYSTOLIC. HR APICALLY IS RATE IN 50'S. METOPROLOL GIVEN TODAY PER DR GAO. SHE SAID TO TAKE IT CASE BY CASE EACH TIUME IF THERE WERE CONCERNS TO CONTACT THE HOSPITALIST SUPERVISOR HAND SILVERING RATHER THAT PUT PARAMETERS ON IT. HE HAS DENIED CP, SOB, OR ANY OTHER COMPLAINTS TODAY. IND IN ROOM
[2020-06-30 05:05] LABS: Hematocrit 31.1 % (37.0-53.0); Hemoglobin 9.6 g/dL (13.5-17.5)
[2020-06-30 05:31] LABS: Albumin, Blood 2.7 g/dL (3.4-5.0); Anion Gap 11 mmol/L (6-16); Blood Urea Nitrogen 64 mg/dL (8-24); Bun/Creatinine Ratio 12.5 (12.0-20.0); CO2, Blood 20 mmol/L (21-32); Calcium, Blood 8.2 mg/dL (8.5-10.1); Chloride, Blood 111 mmol/L (98-108); Creatinine, Blood 5.13 mg/dL (0.60-1.20); Glomerular Filtration Rate 12 (60-); Glucose, Blood 116 mg/dL (70-99); Magnesium, Blood 1.9 mg/dL (1.6-2.4); Potassium, Blood 4.1 mmol/L (3.5-5.5); Sodium, Blood 142 mmol/L (136-145)
--- NOTE | 2020-06-30 05:54 | NUR ---
PT A&OX4, ABLE TO MAKE NEEDS KNOWN, PLEASANT AND COOPERATIVE TO CARE. HELD 0000 LOPRESSOR DOSE ORDERED BY DR. LOWE D/T SYSTOLIC BP OF 101. PT WAS ALSO REPORTED TO HAVE A 7 BEAT VTACH BY SELF PAY SPECIALIST BUT IMMEDIATELY RETURNED TO NORMAL SR. WENT TO ASSESS PT, ASYMPTOMATIC. PATIENT HAD NO C/O PAIN OR ANY DISCOMFORT THIS SHIFT. RESTING WELL IN ROOM, INDEPENDENT. ENGLE CATH PATENT, DRAINING WELL. CALL LIGHT WITHIN REACH. WILL CONTINUE TO MONITOR PATIENT. WILL REPORT TO ONCOMING RN.
[2020-06-30 09:43] LABS: ANTIGLOMERULAR BM AB 2 units (0-20)
--- NOTE | 2020-06-30 17:30 | NUR ---
Shift Summary A/Ox4, pleasant and cooperative with care. at bedside intermittently throughout the day. Denies pain, up ad nicola in room. Dc patent and draining clear yellow output. Tele: SR richardson PAC's @ 68. No v-tach this shift. Appetite is good. No additional concerns. Will continue to monitor.
--- NOTE | 2020-06-30 19:30 | NUR ---
ASSUMED CARE. AOX3, IN GOOD SPIRITS. DENIES ANY PAIN OR DISCOMFORT. VS WNL, AFEBRILE. GOOD APPETITE. NO EDEMA. CATHETER PATENT AND DRAINING. LUNG SOUNDS CLEAR. TELE REPORTS SINUS IN THE 70'S. NO CHEST PAIN NOTED. SKIN PWD, NO RASH OR REDENSS. INDPENDENT IN THE ROOM. CALL LIGHT IN REACH.
--- NOTE | 2020-07-01 05:33 | NUR ---
SHIFT SUMMARY: LESIA HAS SLEPT MOST OF THE SHIFT EXCEPT WHEN INTERVENTIONS ARE BEING DONE. VS ARE WNL, AFEBRILE. DENIED ANY COMPLAINTS OR CONCERNS. CATHETER REMAINED PATENT. NO ACUTE CHANGES TO NOTE THIS SHIFT. CALL LIGHT REMAINED IN REACH.
[2020-07-01 07:03] LABS: Albumin, Blood 2.7 g/dL (3.4-5.0); Anion Gap 10 mmol/L (6-16); Blood Urea Nitrogen 66 mg/dL (8-24); Bun/Creatinine Ratio 13.3 (12.0-20.0); CO2, Blood 21 mmol/L (21-32); Calcium, Blood 8.2 mg/dL (8.5-10.1); Chloride, Blood 112 mmol/L (98-108); Creatinine, Blood 4.96 mg/dL (0.60-1.20); Glomerular Filtration Rate 13 (60-); Glucose, Blood 129 mg/dL (70-99); Magnesium, Blood 1.9 mg/dL (1.6-2.4); Phosphorus, Blood 5.1 mg/dL (2.5-4.9); Potassium, Blood 4.2 mmol/L (3.5-5.5); Sodium, Blood 143 mmol/L (136-145)
--- NOTE | 2020-07-01 08:02 | NUR ---
Blood pressure 91/[address] with [address] Phillips. Received telephone order to hold Norvasc and administer Metoprolol.
[2020-07-01 13:08] LABS: ANA DIRECT Negative (Negative); ANTIMYELOPEROXIDASE (MPO) ABS <9.0 U/mL (0.0-9.0); ANTIPROTEINASE 3 (PR-3) ABS <3.5 U/mL (0.0-3.5); ATYPICAL PANCA <1:20 titer (Neg:<1:20); CYTOPLASMIC (C-ANCA) <1:20 titer (Neg:<1:20); PERINUCLEAR (P-ANCA) <1:20 titer (Neg:<1:20)
--- NOTE | 2020-07-01 17:58 | NUR ---
Shift Summary Encouraged patient to ambulate in hallway with mask on. Patient declined, when asked why, patient stated "I'm just lazy." Explained the need to move about when hospitalized to improve condition. Patient verbalized understanding; however, continues to decline ambulation in hallway. Prefers to sit and watch TV as he does at home. Up to bathroom independently, had bowel movement today. Per patient report, soft, med, brown stool. No changes, uneventful day.
--- NOTE | 2020-07-01 20:10 | NUR ---
ASSUMED CARE. LESIA HAD A GOOD DAY. REPORTS THAT HE HAD NO CHANGES TODAY. OVERALL ASSESSMENT IS BENIGN EXCEPT FOR URINARY CATHETER PATENT AND DRAINING CLEAR YELLOW URINE. GOOD APPETITE. ENCOURAGE GETTING UP TO AT LEAST THE CHAIR FOR A WHILE, HE SAID HE WAS FINE. DENIES ANY OTHER NEEDS OR CONCERNS. CALL LIGHT IN REACH.
[2020-07-02 04:48] LABS: Hematocrit 34.8 % (37.0-53.0); Hemoglobin 10.7 g/dL (13.5-17.5)
[2020-07-02 05:05] LABS: Albumin, Blood 2.9 g/dL (3.4-5.0); Anion Gap 9 mmol/L (6-16); Blood Urea Nitrogen 68 mg/dL (8-24); Bun/Creatinine Ratio 13.4 (12.0-20.0); CO2, Blood 21 mmol/L (21-32); Calcium, Blood 8.5 mg/dL (8.5-10.1); Chloride, Blood 110 mmol/L (98-108); Creatinine, Blood 5.06 mg/dL (0.60-1.20); Glomerular Filtration Rate 12 (60-); Glucose, Blood 95 mg/dL (70-99); Magnesium, Blood 2.3 mg/dL (1.6-2.4); Phosphorus, Blood 6.2 mg/dL (2.5-4.9); Potassium, Blood 4.6 mmol/L (3.5-5.5); Sodium, Blood 140 mmol/L (136-145)
--- NOTE | 2020-07-02 06:28 | NUR ---
SHIFT SUMMARY: LESIA HAD AN UNEVENTFUL NIGHT. VS WNL, AFEBRILE. TOOK MEDS WITH NO ISSUES. CATHETER REMAINED PATIENT. SLEPT WELL. ENCOURAGED AMBULATION, DID GET UP ONCE TO CLOSE THE DOOR BUT WAS BACK IN BED. DENIED ANY NEEDS ALL SHIFT. CALL LIGHT IN REACH.
--- NOTE | 2020-07-02 07:15 | NUR ---
ASSUMED CARE OF PT- BEDSIDE REPORT COMPLETED WITH NIGHT RN KRUNAL. PT ALERT AND ORIENTED INDEPENDENT IN THE ROOM. PT LIKES LATA CRACKERS AND COFFEE OTHERWISE PER REPORT HE DOES NOT CALL FOR ANY NEEDS. PT IN BED CALL LIGTH IN REACH, NO S&S OF DISTRESS NOTED AT THE TIME OF SHIFT CHANGE WILL CTM.
[2020-07-02 11:04] LABS: Creatinine, Blood 4.92 mg/dL (0.60-1.20)
[2020-07-03 06:00] LABS: Albumin, Blood 2.8 g/dL (3.4-5.0); Anion Gap 10 mmol/L (6-16); Blood Urea Nitrogen 76 mg/dL (8-24); Bun/Creatinine Ratio 14.6 (12.0-20.0); CO2, Blood 20 mmol/L (21-32); Calcium, Blood 8.3 mg/dL (8.5-10.1); Chloride, Blood 109 mmol/L (98-108); Creatinine, Blood 5.22 mg/dL (0.60-1.20); Glomerular Filtration Rate 11 (60-); Glucose, Blood 131 mg/dL (70-99); Magnesium, Blood 2.3 mg/dL (1.6-2.4); Phosphorus, Blood 7.1 mg/dL (2.5-4.9); Potassium, Blood 4.3 mmol/L (3.5-5.5); Sodium, Blood 139 mmol/L (136-145)
--- NOTE | 2020-07-03 07:00 | NUR ---
Patient gave student nurse Deandre Ford permission for care
[2020-07-03 14:01] LABS: Hematocrit 34.9 % (37.0-53.0); Hemoglobin 10.5 g/dL (13.5-17.5)
--- NOTE | 2020-07-03 16:24 | NUR ---
PT RETURNED FROM PROCEDURE, ALERT, ORIENTED AND ASKING FOR COFFEE. PT INDEPENDENTLY AMBULATING IN THE ROOM ALREADY, ENGLE CATH IN PLACE PATENT AND DRAINING CLEAR YELLOW URINE.
--- NOTE | 2020-07-03 16:25 | NUR ---
CALLED MARY ELLEN IN DIALYSIS TO SEE IF SHE KNOWS OF ANY PLANS TO DIALZE TONIGHT. IF SHE DOES NOT THEN WILL CALL DR JAIME. AWAITING A RETURN CALL FRON DEVELOPMENTAL SERVICES WORKER DELONDA.
--- NOTE | 2020-07-03 16:36 | NUR ---
RECIEVED A CALL FROM MARY ELLEN IN DIALYSIS PT TO BE DIALIZED FIRST THING IN THE MORNING. POST PROCEDURE VITALS BEING DONE AT THIS TIME.
--- NOTE | 2020-07-03 17:35 | NUR ---
SHIFT SUMMARY- PT ALERT AND ORIENTED, INDEPENDENT IN THE ROOM. ENGLE IN P[LACE PATENT AND DRAINING CLEAR YELLOW URINE. PT HAD A PERMACATH PLACED TODAY, PLAN IS FOR THE PT TO RECIEVE DIALYSIS TOMORROW MORNING FOR THE FIRST TIME. POST OP VITALS BEING DONE AT THIS TIME. SATS GREATER THAN 90% ON ROOM AIR. 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 PT CURRENTLY SITTING UP IN A CHAIR CALL LIGHT AT THE BEDSIDE, PLAYING A GAME ON HIS PHONE AND LISTENING TO THE TV. PT ON TELE RUNNING SINUS 68 AT THIS TIME PER GLUING MACHINE OPERATOR AUTOMATIC JOIE. WILL PASS ALL ON IN REPORT TO NIGHT RN.
--- NOTE | 2020-07-04 04:47 | NUR ---
PHOTO CHECKER SUMMARY NO ACUTE CHANGES NOTED TO PT THIS SHIFT. A&OX4, PLEASANT AND COOPERATIVE TO CARE. VSS, NO C/O PAIN OR DISCOMFORT. DRESSING TO PERMACATH TO R CHEST WALL CDI, DENIES ANY DISCOMFORT TO AA. ENGLE CATH PATENT AND DRAINING WELL. ON TELE SR 70's. DENIES CHEST PAIN OR SOB. DENIES N&V. WILL CONTINUE TO MONITOR PT. WILL REPORT TO ONCOMING RN.
[2020-07-04 05:14] LABS: BASOPHILS ABSOLUTE AUTO 0.08 K/mm3 (0.00-0.23); BASOPHILS PERCENT AUTO 1 % (0-2); EOSINOPHILS ABSOLUTE AUTO 0.16 K/mm3 (0.00-0.68); EOSINOPHILS PERCENT AUTO 2 % (0-6); Hemoglobin 10.8 g/dL (13.5-17.5); IMMATURE GRAN ABSOLUTE AUTO 0.16 K/mm3 (0.00-0.10); IMMATURE GRAN PERCENT AUTO 2 % (0-1); LYMPHOCYTES PERCENT AUTO 18 % (21-46); MONOCYTES ABSOLUTE AUTO 1.21 K/mm3 (0.16-1.47); MONOCYTES PERCENT AUTO 12 % (4-13); Mean Corpuscular HGB 30.5 pg (26.0-34.0); Mean Corpuscular HGB Conc 31.8 g/dL (31.5-36.5); Mean Corpuscular Volume 96 fL (80-100); Mean Platelet Volume 11.7 fL (9.1-12.4); NEUTROPHILS PERCENT AUTO 66 % (41-73); Platelet Count 256 K/mm3 (150-400); RDW Coefficient Variation 15.4 % (11.7-14.2); RDW Standard Deviation 53.8 fL (35.1-46.3); Red Blood Cell Count 3.54 M/mm3 (4.30-5.90); White Blood Cell Count 10.11 K/mm3 (4.00-11.30)
[2020-07-04 05:49] LABS: Albumin, Blood 2.9 g/dL (3.4-5.0); Anion Gap 10 mmol/L (6-16); Blood Urea Nitrogen 81 mg/dL (8-24); Bun/Creatinine Ratio 16.1 (12.0-20.0); CO2, Blood 21 mmol/L (21-32); Calcium, Blood 8.2 mg/dL (8.5-10.1); Chloride, Blood 109 mmol/L (98-108); Creatinine, Blood 5.04 mg/dL (0.60-1.20); Glomerular Filtration Rate 13 (60-); Glucose, Blood 85 mg/dL (70-99); Magnesium, Blood 2.3 mg/dL (1.6-2.4); PSA, %Free 11.4 %; PSA, Free 0.087 ng/mL; Phosphorus, Blood 7.1 mg/dL (2.5-4.9); Potassium, Blood 4.2 mmol/L (3.5-5.5); Prostate Specific Antigen 0.764 ng/mL (0.000-4.000); Sodium, Blood 140 mmol/L (136-145)
--- NOTE | 2020-07-04 13:00 | NUR ---
Pt to Dialysis alet and affect good. First time dialysis treatment. Pt sogned consent, oreintation to protecting his catheter and the process. pt demonstrated understanding of dialysis treament.
--- NOTE | 2020-07-04 15:07 | NUR ---
pt stable site stable pt returned to room
--- NOTE | 2020-07-04 15:16 | NUR ---
site patent pt alert no dyspnea or pain
--- NOTE | 2020-07-04 18:20 | NUR ---
PT IS AOX4, VERY PLEASENT AND COOPERATIVE. PT HAS NEW PERMA CATH ON THE RIGHT HAD DIALYISIS FOR THE FIRST TIME TODAY. PT TOLERATED WELL. PT HAS A ENGLE CATH THAT IS STILL PATENT AND DRAINING. PT TREATED PER EMAR. PT IS RESTING IN BED AND CALL LIGHT IS WITHIN REACH NO DISTRESS NOTED.
--- NOTE | 2020-07-04 18:27 | NUR ---
PLEASE REFER TO STUDENT NOTE FOR SHIFT SUMMARY.
[2020-07-05 04:42] LABS: BASOPHILS ABSOLUTE AUTO 0.08 K/mm3 (0.00-0.23); BASOPHILS PERCENT AUTO 1 % (0-2); EOSINOPHILS ABSOLUTE AUTO 0.16 K/mm3 (0.00-0.68); EOSINOPHILS PERCENT AUTO 2 % (0-6); Hematocrit 31.6 % (37.0-53.0); Hemoglobin 9.9 g/dL (13.5-17.5); IMMATURE GRAN ABSOLUTE AUTO 0.14 K/mm3 (0.00-0.10); IMMATURE GRAN PERCENT AUTO 1 % (0-1); LYMPHOCYTES ABSOLUTE AUTO 1.66 K/mm3 (0.84-5.20); LYMPHOCYTES PERCENT AUTO 16 % (21-46); MONOCYTES ABSOLUTE AUTO 1.48 K/mm3 (0.16-1.47); MONOCYTES PERCENT AUTO 14 % (4-13); Mean Corpuscular HGB 30.1 pg (26.0-34.0); Mean Corpuscular HGB Conc 31.3 g/dL (31.5-36.5); Mean Corpuscular Volume 96 fL (80-100); Mean Platelet Volume 11.5 fL (9.1-12.4); NEUTROPHILS ABSOLUTE AUTO 7.03 K/mm3 (1.96-9.15); NEUTROPHILS PERCENT AUTO 67 % (41-73); Platelet Count 216 K/mm3 (150-400); RDW Coefficient Variation 15.6 % (11.7-14.2); RDW Standard Deviation 54.9 fL (35.1-46.3); Red Blood Cell Count 3.29 M/mm3 (4.30-5.90); White Blood Cell Count 10.55 K/mm3 (4.00-11.30)
--- NOTE | 2020-07-05 04:44 | NUR ---
SHIFT SUMMARY ASSUMED CARE OF PT AT 1900. PT IS A/OX4, DENIES N/T IN EXTREMITIES. TELE SHOWS SINUS. LUNG SOUNDS DIMINISHED ON THE R SIDE. PT BP HAS REMAINED IN THE 80-90 SYSTOLIC, CONSULTED HOSPITALIST WHO STATED TO GIVE 250CC BOLUS IF HIS MAP WAS BELOW 60. PT WAS GIVEN BOLUS AT 0400 FOR MAP OF 57, PT BP IS NOW 110/80. PT WAS ASYMPTOMATIC ALL NIGHT AND STATED THAT HE FELT FINE. ENGLE DRAINING WITH GRAVITY, PT HAD LITTLE URINE OUTPUT. PT SLEPT T/O THE NIGHT. CALL LIGHT IN REACH, BED IN LOWEST POSTION.
[2020-07-05 05:04] LABS: Albumin, Blood 2.6 g/dL (3.4-5.0); Anion Gap 9 mmol/L (6-16); Blood Urea Nitrogen 75 mg/dL (8-24); Bun/Creatinine Ratio 14.9 (12.0-20.0); CO2, Blood 26 mmol/L (21-32); Calcium, Blood 7.7 mg/dL (8.5-10.1); Chloride, Blood 107 mmol/L (98-108); Creatinine, Blood 5.02 mg/dL (0.60-1.20); Glomerular Filtration Rate 13 (60-); Glucose, Blood 113 mg/dL (70-99); Magnesium, Blood 2.2 mg/dL (1.6-2.4); Phosphorus, Blood 6.1 mg/dL (2.5-4.9); Potassium, Blood 3.8 mmol/L (3.5-5.5); Sodium, Blood 142 mmol/L (136-145)
[2020-07-05 07:08] LABS: HBSAG SCREEN Negative (Negative)
[2020-07-05 09:09] LABS: HBSAG SCREEN Negative (Negative)
--- NOTE | 2020-07-05 18:15 | NUR ---
SHIFT SUMMARY OUT TO DIALYSIS TODAY AND TOLERATED WELL. BLOOD PRESSURE LOW THIS AFTERNOON BUT ASYMPTOMATIC. HAS DENIED PAIN OR NAUSEA TODAY. INDEPENDENT IN ROOM WHEN UP AND AROUND. WATCHING TV OR NAPPING MOST OF THE DAY WHILE IN ROOM.
--- NOTE | 2020-07-06 04:45 | NUR ---
SHIFT SUMMARY PT HAD UNEVENTFUL NIGHT. PT HAS HAD NO COMPLAINTS. DENIES PAIN OR DISCOMFORT. DENIES SOB. NO NOTICABLE EDEMA. PERMACATH TO R CHEST WALL NOTED. PT SPENT A GOOD PORTION OF THE EVENING SITTING UP IN BED WATCHING TV, DRINKING COFFEE, AND SNACKING UNTIL FALLING ASLEEP EARLY IN THE AM. PT CONTINUED TO BE HYPOTENSIVE, 86/60 AT START OF SHIFT AND IMPROVING TO 102/65 BY MIDNIGHT AND 102/69 WITH MORNING VITALS. HYPOTENSION IS ASYMPTOMATIC. NO ACUTE CHANGES THIS SHIFT. WILL CONTINUE TO MONITOR AND REPORT TO DAY RN.
[2020-07-06 04:49] LABS: BASOPHILS ABSOLUTE AUTO 0.07 K/mm3 (0.00-0.23); BASOPHILS PERCENT AUTO 1 % (0-2); EOSINOPHILS PERCENT AUTO 2 % (0-6); Hematocrit 31.6 % (37.0-53.0); Hemoglobin 9.7 g/dL (13.5-17.5); IMMATURE GRAN ABSOLUTE AUTO 0.08 K/mm3 (0.00-0.10); IMMATURE GRAN PERCENT AUTO 1 % (0-1); LYMPHOCYTES ABSOLUTE AUTO 2.02 K/mm3 (0.84-5.20); LYMPHOCYTES PERCENT AUTO 22 % (21-46); MONOCYTES ABSOLUTE AUTO 1.55 K/mm3 (0.16-1.47); MONOCYTES PERCENT AUTO 17 % (4-13); Mean Corpuscular HGB 29.8 pg (26.0-34.0); Mean Corpuscular HGB Conc 30.7 g/dL (31.5-36.5); Mean Corpuscular Volume 97 fL (80-100); Mean Platelet Volume 11.8 fL (9.1-12.4); NEUTROPHILS ABSOLUTE AUTO 5.19 K/mm3 (1.96-9.15); NEUTROPHILS PERCENT AUTO 57 % (41-73); Platelet Count 191 K/mm3 (150-400); RDW Coefficient Variation 15.5 % (11.7-14.2); RDW Standard Deviation 54.5 fL (35.1-46.3); Red Blood Cell Count 3.26 M/mm3 (4.30-5.90); White Blood Cell Count 9.11 K/mm3 (4.00-11.30)
[2020-07-06 05:32] LABS: Albumin, Blood 2.7 g/dL (3.4-5.0); Anion Gap 8 mmol/L (6-16); Blood Urea Nitrogen 64 mg/dL (8-24); Bun/Creatinine Ratio 14.8 (12.0-20.0); CO2, Blood 29 mmol/L (21-32); Calcium, Blood 8.5 mg/dL (8.5-10.1); Chloride, Blood 105 mmol/L (98-108); Creatinine, Blood 4.33 mg/dL (0.60-1.20); Glomerular Filtration Rate 15 (60-); Glucose, Blood 88 mg/dL (70-99); Magnesium, Blood 2.1 mg/dL (1.6-2.4); Phosphorus, Blood 5.3 mg/dL (2.5-4.9); Potassium, Blood 3.7 mmol/L (3.5-5.5); Sodium, Blood 142 mmol/L (136-145)
--- NOTE | 2020-07-06 17:59 | NUR ---
SHIFT SUMMARY PT UP IN ROOM INDEPENDENTLY TODAY. IN TO VISIT FOR SHORT TIME. HAS DENIED PAIN OR NAUSEA. NO DIALYSIS TODAY. PLANS TO DISCHARGE WHEN SET UP WITH [facility]. SPOKE WITH MD ON PHONE ABOUT CONTINUED HOLDING OF METOPROLOL DUE TO BPS REMAINING LOW.
[2020-07-07 05:11] LABS: Hematocrit 32.9 % (37.0-53.0)
--- NOTE | 2020-07-07 05:18 | NUR ---
SHIFT SUMMARY PT HAS RESTED MOST OF THE NIGHT AND HAS DENIED NEEDS. HE HAS BEEN INDEPENDENT IN THE ROOM. VITALS ARE STABLE. ENGLE IN PLACE WITH 1400 MLS OUT THIS SHIFT. BP STABLE. NO ACUTE CHANGES IN PT ASSESSMENT. POSSIBLE DC. BED IN LOWEST POSITION, CALL LIGHT WITHIN REACH.
[2020-07-07 06:00] LABS: Albumin, Blood 2.8 g/dL (3.4-5.0); Anion Gap 9 mmol/L (6-16); Blood Urea Nitrogen 73 mg/dL (8-24); Bun/Creatinine Ratio 16.9 (12.0-20.0); CO2, Blood 25 mmol/L (21-32); Calcium, Blood 8.6 mg/dL (8.5-10.1); Chloride, Blood 106 mmol/L (98-108); Creatinine, Blood 4.32 mg/dL (0.60-1.20); Glomerular Filtration Rate 15 (60-); Glucose, Blood 93 mg/dL (70-99); Magnesium, Blood 2.1 mg/dL (1.6-2.4); Phosphorus, Blood 5.3 mg/dL (2.5-4.9); Potassium, Blood 4.2 mmol/L (3.5-5.5); Sodium, Blood 140 mmol/L (136-145)
--- NOTE | 2020-07-07 08:10 | NUR ---
STUDENT NURSE, SHAHNAZ, DID EVAL WITH RN IN ATTENDANCE AND RN AGREES WITH EVAL.
--- NOTE | 2020-07-07 16:16 | NUR ---
ALERT. ORIENTED. DENIES ; N/V OR PAIN. PLEASANT. PERMACATH TO RT Stacey.Carloz ARMENDARIZEY DRAINING CLEAR YELLOW URINE. HAD DIALYSIS THIS MORNING WITH SOME MEDS HELD PRIOR TO PROCEDURE. B.P. 140'S UPON RETURN WITH HEART RATE IN 80'S, SO TOPROL GIVEN. INDEPENDENT IN ROOM. WAITING FOR SET UP WITH [facility] BEFORE BEING DISCHARGED. ON R.A. UNLABORED RESPIRATIONS. TM
--- NOTE | 2020-07-08 04:44 | NUR ---
SHIFT SUMMARY: 59 Y/O MALE RESTED COMFORTABLY ALL SHIFT; DENIES PAIN OR NAUSEA; PTS WAITING FOR [facility] TO MAKE DATE ASSIGNMENT TO START OUTPATIENT SERVICE AT THIS TIME; PT SCHEDULED FOR DIALYIS TODAY AT [facility]; RIGHT UPPER CHEST DIALYSIS PORT DRESSING DRY AND INTACT; ENGLE DRAINING CLEAR YELLOW FLUID; BED LOW POSITION WITH CALL LIGHT AT SIDE.
[2020-07-08 05:25] LABS: Hematocrit 35.8 % (37.0-53.0)
[2020-07-08 05:52] LABS: Albumin, Blood 2.8 g/dL (3.4-5.0); Anion Gap 11 mmol/L (6-16); Blood Urea Nitrogen 63 mg/dL (8-24); Bun/Creatinine Ratio 17.9 (12.0-20.0); CO2, Blood 26 mmol/L (21-32); Calcium, Blood 8.8 mg/dL (8.5-10.1); Chloride, Blood 103 mmol/L (98-108); Creatinine, Blood 3.51 mg/dL (0.60-1.20); Glomerular Filtration Rate 19 (60-); Glucose, Blood 95 mg/dL (70-99); Magnesium, Blood 2.1 mg/dL (1.6-2.4); Phosphorus, Blood 5.7 mg/dL (2.5-4.9); Potassium, Blood 4.3 mmol/L (3.5-5.5); Sodium, Blood 140 mmol/L (136-145)
[2020-07-08] MEDS ORDERED: ACET325 PO (09:15)
[2020-07-08] MEDS ORDERED: BISM300CH PO (09:16)
[2020-07-08] MEDS ORDERED: BUME2 PO (09:17)
[2020-07-08] MEDS ORDERED: AZO CRANBERRY PO (09:20)
[2020-07-08] MEDS ORDERED: DOXY100 PO (09:20)
[2020-07-08] MEDS ORDERED: METO25ER PO (09:22)
[2020-07-08] MEDS ORDERED: METR500 PO (09:24)
[2020-07-08] MEDS ORDERED: PANT40 PO (09:25)
[2020-07-08] MEDS ORDERED: MIRALAX17 GM PO (09:25)
--- NOTE | 2020-07-08 16:12 | NUR ---
CALLED ISTRATE AT 1520 TO CONFIRM PT TO D/C WITH ENGLE IN PLACE AND IF URO F/U NEEDED. NO NEW ORDERS. PT TO FOLLOW-UP WITH PCP REGARDING ENGLE. 1605 SBAR REPORT AND HANDOFF OF PT CARE TO [facility].
--- NOTE | 2020-07-08 16:17 | NUR ---
TOOK OVER PT CARE AT 1610. PT WAITING FOR SO HE CAN DISCHARGE. NO DISTRESS NOTED.
--- NOTE | 2020-07-08 17:43 | NUR ---
PT DISCHARGED WITH TRANSPORT NO DISTRESS NOTED. PT HAS ENGLE CATH IN PLACE AND HAS BEEN INSTRUCTED TO FOLLOW UP WITH HIS PCP HE RETAINS URINE. PT AND EDUCATED ON EMPTYING OUT BAG. BOTH VERBALIZED UNDERSTANDING. ALL PAPER WORK REVIEWED AND EDUCATIONAL MATERIAL SENT WITH PT. PT ALSO INSTUCTED ON DIALYSIS APPOINTMENT TIMES. ALL PERSONAL BELONINGS WERE COLLECTED AND PT ESCORTED BY THIS MECHANIC FIELD SERVICE TO N ENTRANCE VIA WHEEL CHAIR.
== END 2020-07-08 17:38 | disposition home or self-care (01) | DRG 673 ==
LOC: ER 18:48 → ICUW 20:54 → MEDS 20:54 → PCU 20:54 → ICUW 22:30 → MEDS 06-26 14:18 → PCU 06-26 20:20 → MEDS 06-29 06:40
PROVIDERS: Emergency Medicine; Family Medicine; Internal Medicine; Internal Medicine Nephrology; Student in an Organized Health Care Education/Training Program; ADMIT Family Medicine
PROC: 30233N1 Transfusion of Nonautologous Red Blood Cells into Peripheral Vein, Percutaneous Approach (ICD-10-PCS; 2020-06-24)
PROC: 0DJ08ZZ Inspection of Upper Intestinal Tract, Via Natural or Artificial Opening Endoscopic (ICD-10-PCS; principal; 2020-06-25 17:30)
PROC: 0JH63XZ Insertion of Tunneled Vascular Access Device into Chest Subcutaneous Tissue and Fascia, Percutaneous Approach (ICD-10-PCS; 2020-07-03)
PROC: 02HV33Z Insertion of Infusion Device into Superior Vena Cava, Percutaneous Approach (ICD-10-PCS; 2020-07-03)
PROC: B5181ZA Fluoroscopy of Superior Vena Cava using Low Osmolar Contrast, Guidance (ICD-10-PCS; 2020-07-03)
PROC: 5A1D70Z Performance of Urinary Filtration, Intermittent, Less than 6 Hours Per Day (ICD-10-PCS; 2020-07-03)
DX: N17.9 Acute kidney failure, unspecified (principal); K26.4 Chronic or unspecified duodenal ulcer with hemorrhage; I50.31 Acute diastolic (congestive) heart failure; J96.00 Acute respiratory failure, unspecified whether with hypoxia or hypercapnia; I50.33 Acute on chronic diastolic (congestive) heart failure; D62 Acute posthemorrhagic anemia; E87.2 Acidosis; E87.3 Alkalosis; E87.0 Hyperosmolality and hypernatremia; I13.2 Hypertensive heart and chronic kidney disease with heart failure and with stage 5 chronic kidney disease, or end stage renal disease; N18.6 End stage renal disease; F17.210 Nicotine dependence, cigarettes, uncomplicated; N13.30 Unspecified hydronephrosis; E78.5 Hyperlipidemia, unspecified; E88.09 Other disorders of plasma-protein metabolism, not elsewhere classified; K44.9 Diaphragmatic hernia without obstruction or gangrene; I48.0 Paroxysmal atrial fibrillation; E83.42 Hypomagnesemia; E86.1 Hypovolemia; Z20.828 Contact with and (suspected) exposure to other viral communicable diseases; Z99.2 Dependence on renal dialysis; R33.9 Retention of urine, unspecified
CPT/HCPCS: 36415; 36430; 36558; 36600; 51701; 51702; 51703; 71045; 71046; 71250; 74150; 74176; 76770; 76937; 77001; 80048; 80053; 80069; 82550; 82565; 82607; 82728; 82746; 82784; 82803; 82947; 83516; 83520; 83540; 83550; 83735; 83880; 84145; 84153; 84154; 84156; 84165; 84550; 85014; 85018; 85025; 85610; 85730; 86038; 86256; 86317; 86334; 86335; 86704; 86850; 86900; 86901; 86923; 87086; 87338; 87340; 93005; 93010; 96365-59; 96376-59; 99152; 99285-25; A9270-GY; C1750; C1751; C1769; C1894; C9113; J0171; J0881; J1430; J1644; J1940; J2250; J2704; J2916; J3010; J3475; J3480; J7030; J7040; J7050; J7070; P9016; U0003

== ENCOUNTER 2020-08-12 06:38 | Inpatient (IN) | payer OTHER ==
[~2020-08-12] VITALS: Ht 180.3 cm; Wt 64.6 kg
[~2020-08-12 06:38] MED LIST changes: +ACET325 PO; +ATOR40TA PO; +AZO CRANBERRY PO; +Aspirin EC81 MG PO; +BISM300CH PO; +BUME2 PO; +DOXY100 PO; +METO25ER PO; +METR500 PO; +MIRALAX17 GM PO; +PANT40 PO
[2020-08-12 07:15] LABS: Hematocrit 35.3 % (37.0-53.0); Mean Corpuscular HGB 29.4 pg (26.0-34.0); Mean Corpuscular HGB Conc 31.2 g/dL (31.5-36.5); Mean Corpuscular Volume 94 fL (80-100); Mean Platelet Volume 11.9 fL (9.1-12.4); Platelet Count 147 K/mm3 (150-400); RDW Coefficient Variation 14.9 % (11.7-14.2); RDW Standard Deviation 51.6 fL (35.1-46.3); Red Blood Cell Count 3.74 M/mm3 (4.30-5.90); White Blood Cell Count 3.74 K/mm3 (4.00-11.30)
[2020-08-12 07:35] LABS: Source, Urine Catheter
[2020-08-12 07:37] LABS: International Normalized Ratio 0.94; Prothrombin Time Results 10.1 Sec (9.7-11.5)
[2020-08-12 07:41] LABS: Albumin/Globulin Ratio 0.7 (0.8-1.8); Bilirubin, Total 0.5 mg/dL (0.1-1.0); Bun/Creatinine Ratio 10.2 (12.0-20.0); Calcium, Blood 8.2 mg/dL (8.5-10.1); Creatinine, Blood 6.36 mg/dL (0.60-1.20); Globulin, Blood 4.3 g/dL (2.2-4.0); Potassium, Blood 3.7 mmol/L (3.5-5.5); Total Protein, Blood 7.3 g/dL (6.4-8.2)
[2020-08-12 07:42] LABS: BAND PERCENT MAN 1 % (0-8); BASOPHILS PERCENT MAN 0 % (0-2); EOSINOPHILS PERCENT MAN 0 % (0-6); LYMPHOCYTES ABSOLUTE MAN 0.67 K/mm3 (0.84-5.20); LYMPHOCYTES PERCENT MAN 18 % (21-46); MONOCYTES ABSOLUTE MAN 0.33 K/mm3 (0.16-1.47); MONOCYTES PERCENT MAN 9 % (4-13); MYELOCYTE ABSOLUTE MAN 0.03 K/mm3 (0.00-0.00); MYELOCYTE PERCENT MAN 1 % (0-0); NEUTROPHILS ABSOLUTE MAN 2.69 K/mm3 (1.96-9.15); SEG NEUTROPHILS PERCENT MAN 71 % (41-73); TOTAL CELLS COUNTED 100
[2020-08-12 07:53] LABS: Bilirubin, Urine Neg (Neg); Blood, Urine 5+ (Neg); Glucose Qualitative, Urine Neg (Neg); Ketones, Urine Neg (Neg); Leukocyte Esterase, Urine 3+ (Neg); Nitrite, Urine Neg (Neg); Protein, Urine 3+ (Neg); Urobilinogen, Urine NORM (Normal)
[2020-08-12 08:01] LABS: Appearance, Urine Hazy (Clear); Color, Urine Yellow (P-Yellow)
[2020-08-12 08:03] LABS: Red Blood Cells, Urine 25-50 /hpf (0-2)
[2020-08-12 08:04] LABS: Bacteria Many /hpf; Squamous Epithelial Cells Rare /hpf (Few)
[2020-08-12 09:01] LABS: Influenza A, PCR Negative (NEGATIVE); Influenza B, PCR Negative (NEGATIVE); Resp Syncytial Virus, PCR Negative (NEGATIVE); SARS-Cov-2 (COVID-19) PCR, MMC Positive (NEGATIVE)
[2020-08-12 13:22] LABS: Hematocrit 30.7 % (37.0-53.0); Hemoglobin 9.8 g/dL (13.5-17.5)
--- NOTE | 2020-08-12 17:17 | NUR ---
PT SA02 WAS AT 88%, PLACED PT ON NC 1L/MIN, SAT INCREASED TO 94%. PT'S TEMP WAS INCREASED AT 100.3, AFTER REMOVING BLANKETS AND DECREASING THE THERMOSTAT, PT'S TEMP WAS RECHECKED AND READ 99..1 TEMPORAL.
--- NOTE | 2020-08-12 18:41 | NUR ---
SHIFT SUMMARY PT ARRIVED TO PCU THIS AFTERNOON. PT WAS ABLE TO TRANSFER FROM STRETCHER TO BED WITH 1 PERSON STAND BY ASSIST. VS STABLE, SLIGHT INCREASE IN TEMP THIS EVENING, 100.3 AFTER TURNING DOWN THE THERMOSTAT AND REMOVING BLANKETS HIS TEMP DECREASED TO 99.2. PT'S IS VERY INFORMED REGARDING HIS CARE AND CAN HELP SUPPLEMENT OVER THE PHONE WITH ANY QUESTIONS THE PT MAY NOT BE ABLE TO ANSWER. PT IS A&OX3. OXYGEN SATURATION UPON ASSESSMENT WAS 88%, ADMINISTERED 1L OXYGEN VIA NC, SAT INCREASED TO 94%. PT HAS CHRONIC ENGLE IN PLACE, IT WAS REPLACED IN ER AND A UA WAS SENT. PT CAME TO THE ER WHEN HE HAD AN ELEVATED TEMP WHEN CHECKING IN FOR HIS DIALYSIS APPOINTMENT, DIALYSIS FOR TODAY WAS CANCELLED AND THE PT WAS ADMITTED. DIALYSIS WILL CONTINUE INPATIENT TOMORROW 08/13/20. PT IS RESTING AT THIS TIME
[2020-08-12 19:04] LABS: Hematocrit 31.5 % (37.0-53.0); Hemoglobin 9.9 g/dL (13.5-17.5)
--- NOTE | 2020-08-12 19:59 | NUR ---
DR. JAIME CALLED AT SHIFT CHANGE AND ORDERED CULTURES TO BE DRAWN FROM DIAYSIS CATH TONIGHT. RADHA FROM DIALYSIS CALLED AND REQUESTED TO DRAW CULTURES TONIGHT.
--- NOTE | 2020-08-12 20:56 | NUR ---
CALLED IN TO OBTAIN SET OF CULTURES FROM HEMODIALYSIS CVC PER DR JAIME'S ORDER. PATIENT LAYING IN BED IN NO APPARENT DISTRESS. NO SOB ON RA. CVC ACCESSED AND CULTURE SAMPLE OBTAINED. BOTH PORTS FLUSHED WITH NS AND THEN REPACKED WITH HEPARIN 1:1000 PER LUMEN VOLUME. CATHETER DRESSING RENEWED AND SECURED. CULTURE MARKETING PR INTERN CARRIED TO LAB FOR PROCESSING.
[2020-08-13 01:41] LABS: Hematocrit 31.9 % (37.0-53.0); Hemoglobin 9.9 g/dL (13.5-17.5)
[2020-08-13 01:59] LABS: Albumin, Blood 2.5 g/dL (3.4-5.0); Albumin/Globulin Ratio 0.7 (0.8-1.8); Bilirubin, Total 0.4 mg/dL (0.1-1.0); Bun/Creatinine Ratio 12.9 (12.0-20.0); Calcium, Blood 7.7 mg/dL (8.5-10.1); Creatinine, Blood 5.18 mg/dL (0.60-1.20); Globulin, Blood 3.7 g/dL (2.2-4.0); Phosphorus, Blood 4.7 mg/dL (2.5-4.9); Potassium, Blood 3.7 mmol/L (3.5-5.5); Total Protein, Blood 6.2 g/dL (6.4-8.2)
--- NOTE | 2020-08-13 06:46 | NUR ---
SUMMARY PATIENT IS ALERT AND ORIENTED. PATIENT YELLS OUT AND MOANS BUT DENIES PAIN AND STATES HE IS OKAY. PATIENT SLEPY MOST THE NIGHT. 02 SATS >90% ON 1L VIA NC, PATIENT NEEDS REMINDERS TO KEEP NC IN HIS NOSE. PATIENT BP DROPPED TO 79/49 DR. CALLED AND 500ML OF NS GIVEN, BP IMPROVED TO 103/64. PATIENT REPOSITIONED Q2H. CALL LIGHT IN REACH.
--- NOTE | 2020-08-13 08:08 | NUR ---
Pt is awake, vital signs taken. Noted low grade fever. He is moaning, groaning frequently. STates that he is having abdominal pain, points to the left lower area. Bowel prep started as ordered, and bedside commode placed at the head of his bed. Rocephin IVPB infusing at this time.
--- NOTE | 2020-08-13 11:41 | NUR ---
DILTIAZEM DRIP STARTED AT 1011 WITH 5MG/HR, HR AT 175. HR SUSTAINED AFTER 15 MINUTES TITRATED DRIP UP TO 10MG/HR, HR CONTINUED AT 140s TITRATED UP TO 15MG/HR. DR GAO ORDER 10MG BOLUS OF DILTAZEM, HR CURRENTLY AT 130S
--- NOTE | 2020-08-13 12:31 | NUR ---
PHONE CALL TO DR. GAO, BP LOW 88/59. DILTIAZEM @15MG/HR. HR SITTING 110-130. SIGNIFICANT FLUID VOLUME LOSS, 1250ML WITH BOWEL PREP, AND 960 ML INTAKE WITH BOWEL PREP. MURRAY GAVE VERBAL ORDER FOR 1 500ML BOLUS. LUNGS PRIOR TO BOLUS COARSE, NO EDEMA, ENGLE IN PLACE AND DRAINING.
--- NOTE | 2020-08-13 13:17 | NUR ---
PT CONVERTED FROM AFIB, HR INITIALLY 178, CARDIZEM UP TO 15MG/HR. PT NOW IN NS HR 86 ACCORDING TO PCU POKER PROP PLAYERSAMREEN IBANEZ. CARDIZEM STOPPED AT 1312
[2020-08-13 13:59] LABS: Bun/Creatinine Ratio 12.7 (12.0-20.0); Calcium, Blood 7.4 mg/dL (8.5-10.1); Creatinine, Blood 4.72 mg/dL (0.60-1.20); Potassium, Blood 3.6 mmol/L (3.5-5.5)
--- NOTE | 2020-08-13 14:35 | NUR ---
PT DID NOT RECEIVE SECOND DOSE OF BOWEL PREP KIT AT 1000 THIS MORNING, PT WILL HAVE TO START BOWEL PREP AGAIN TOMORROW, THE COLONOSCOPY AND EGD HAVE BEEN PUT OFF UNTIL TOMORROW 08/14/20. DR. BATISTA HAS ORDERED CLEAR LIQUIDS FOR THE PT UNTIL AFTER BOWEL PREP TOMORROW AT WHICH POINT HE WILL BE NPO.
--- NOTE | 2020-08-13 15:46 | NUR ---
BP IS STILL LOW, HOWEVER MAP IS ABOVE [address] GAO REQUESTED THAT IF THE MAP IS LOWER THAN 60 TO CALL AN ORDER FOR MIDODRINE MAY BE NEEDED.
--- NOTE | 2020-08-13 17:40 | NUR ---
SHIFT SUMMARY PT BEGAN BOWEL PREP THIS MORNING FOR A COLONOSCOPY AND EGD, WHILE SITTING ON THE BSC PT CONVERTED TO AFIB WITH HR AT 178. PT DENIED CHEST PAIN, BUT DID SEEM ANXIOUS AND SHORT OF BREATH. O2 SATURATION HAD DROPPED TO 75%, OXYGEN WAS INCREASED AND RT WAS NOTIFIED FOR A QUICK CONSULT. RT ARRIVED AND PLACED PT ON 10L OF HUMIDIFIED O2 AND PLACED A NEW SAO2 PROBE ON THE PT. AN EKG WAS DONE AT THAT TIME WELL. PT WAS STARTED ON A CARDIZEM DRIP WHICH WAS TITRATED UP TO 15MG/HR, HE WAS GIVEN A CARDIZEM 10MG BOLUS WELL. PT CONVERTED BACK TO SINUS RHYTHM WITH HR AT 86, CARDIZEM WAS STOPPED AROUND 1315. BP HAS MAINTAINED IN 90s SYSTOLIC WITH MAP OVER 60. IF THE MAP WERE TO DROP BELOW 60 THE [employer] DELIVERY CONSULTANT NEEDS TO BE NOTIFIED FOR POSSIBLE MIDODRINE ORDER. PT WAS TITRATED DOWN TO 8L OF O2 AND HAS MAINTAINED SAO2 AROUND 94%. PT HAD A POWERGLIDE PLACED TODAY. PT WAS GIVEN 1 OF THE 2 BOTTLES OF BOWEL PREP TODAY, SINCE THE 2ND BOTTLED WAS NOT ADMINISTERED ON TIME, DR. BATISTA HAS RESCHEDULED THE COLONOSCOPY AND EGD FOR TOMORROW; BOWEL PREP WILL START AGAIN IN THE MORNING, PT IS ON CLEAR LIQUIDS FOR NOW. PT HAS A CHRONIC ENGLE IN PLACE THAT IS PATENT AND DRAINING WELL. PT IS RESTING AT THIS TIME.
[2020-08-14 05:51] LABS: Hematocrit 30.9 % (37.0-53.0); Hemoglobin 9.9 g/dL (13.5-17.5); Mean Corpuscular HGB 29.8 pg (26.0-34.0); Mean Corpuscular Volume 93 fL (80-100); Platelet Count 135 K/mm3 (150-400); RDW Coefficient Variation 14.9 % (11.7-14.2); RDW Standard Deviation 51.6 fL (35.1-46.3); Red Blood Cell Count 3.32 M/mm3 (4.30-5.90); White Blood Cell Count 2.88 K/mm3 (4.00-11.30)
--- NOTE | 2020-08-14 06:10 | NUR ---
SHIFT SUMMARY PATIENT IRRITALBE AND EASILY AGITATED THROUGHOUT THE SHIFT. PATIENT REFUSED TO WEAR HIS SCD'S AND REFUSED TO WEAR HIS CONTINUOUS BIOX. PATIENT APPEARED TO BE ABLE TO MOVE SELF ABOUT IN THE BED. PATIENT WEAK AND UNSTEADY ON FEET, BED ALARM ON AND CAMERA ON IN ROOM FOR FALL RISK. PATIENT APPEARED TO SLEEP WELL THROUGHOUT THE NIGHT. PATIENT HAD ONE BM LAST NIGHT THAT WAS PAN, NO REDNESS NOTED IN BM AT THAT TIME. MAP GREATER THAN 65 THROUGHOUT THE NIGHT. PATIENT WAS IN SINUS RHYTHM THROUGHOUT THE NIGHT BUT WOULD OCCATIONALLY DROP INTO THE 40'S-50'S FOR APPROX 5-15 MINUTES BEFORE RETURNING TO THE 70'S. PATIENT REPORTED BEING ASYMPTOMATIC WITH THE LOW HEART RATE. VITAL SIGNS CHARTED. WILL CONTINUE TO MONITOR PATIENT AND REPORT TO ONCOMING RN.
[2020-08-14 06:15] LABS: BAND PERCENT MAN 3 % (0-8); BASOPHILS PERCENT MAN 0 % (0-2); EOSINOPHILS PERCENT MAN 0 % (0-6); LYMPHOCYTES ABSOLUTE MAN 0.48 K/mm3 (0.84-5.20); LYMPHOCYTES PERCENT MAN 17 % (21-46); MONOCYTES ABSOLUTE MAN 0.23 K/mm3 (0.16-1.47); MONOCYTES PERCENT MAN 8 % (4-13); NEUTROPHILS ABSOLUTE MAN 2.16 K/mm3 (1.96-9.15); SEG NEUTROPHILS PERCENT MAN 72 % (41-73); TOTAL CELLS COUNTED 100
[2020-08-14 06:21] LABS: Albumin, Blood 2.2 g/dL (3.4-5.0); Anion Gap 10 mmol/L (6-16); Blood Urea Nitrogen 54 mg/dL (8-24); Bun/Creatinine Ratio 12.5 (12.0-20.0); CO2, Blood 21 mmol/L (21-32); Calcium, Blood 7.6 mg/dL (8.5-10.1); Chloride, Blood 110 mmol/L (98-108); Creatinine, Blood 4.33 mg/dL (0.60-1.20); Glomerular Filtration Rate 15 (60-); Glucose, Blood 97 mg/dL (70-99); Magnesium, Blood 1.9 mg/dL (1.6-2.4); Phosphorus, Blood 4.6 mg/dL (2.5-4.9); Potassium, Blood 3.8 mmol/L (3.5-5.5); Sodium, Blood 141 mmol/L (136-145)
[2020-08-14 08:10] LABS: HBSAG SCREEN Negative (Negative)
--- NOTE | 2020-08-14 14:57 | NUR ---
pt found lying on left side, eyes closed, respirations even and unlabored. His oxygen nasal cannula was on top of his head. spo2 82% on room air. Nasal cannula was replaced in his nares after waking the patient, and spo2 measured as oxygen gradually increased starting at 2 l/min up to 4 l/min until spo2 was greater than 90%. He appears calm, says that he is getting some rest. No voiced complaints or needs voiced, STates he doesn 't need anything at this time.
--- NOTE | 2020-08-14 15:44 | NUR ---
Dr. Perez here to see the patient; updated on pt condition and oxygen requirements, as well as events with afib RVR yesterday and no further episodes with Toprol XL on board. The pt was encouraged to do deep breathing and coughing, but he just waved his hand at me and did not want to attempt it when I was with him in the room last.
--- NOTE | 2020-08-14 15:49 | NUR ---
Call from José Antonio in Xray that right now covid + patients are only having portable 1 view xrays done, no 2 Views in the imaging department at this time.
--- NOTE | 2020-08-14 15:55 | NUR ---
notified Dr. Perez of change to chest xray, and she is ok with that.
--- NOTE | 2020-08-14 23:00 | NUR ---
AFIB TELE GRAPHIC PRE PRESS TRADES WORKER CALLED RN AND NOTIFIED THAT PATIENT CONVERTED TO AFIB WITH A HEART RATE IN THE 130'S-160'S. PATIENT MOSTLY REMAINED IN THE 130'S SO DUE TO PATIENT BEING ASYMPTOMATIC AND BLOOD PRESSURES BEING LOW PATIENT WAS MONITORED. CHARGE NURSE NICOLE REGALADO AGREED WITH PLAN OF CARE.
--- NOTE | 2020-08-14 23:45 | NUR ---
AFIB UPDATE PATIENT'S HEART RATE BEGAIN TO TREAND UP WITH HEART RATE SUSTAINING IN THE 150'S-160'S. ISTRATE NOTIFIED AND INFORMED OF LOW BLOOD PRESSURES. A CARDIZEM GTT WAS ORDERED. PATIENT CONTINUES TO BE ASYMPTOMATIC BUT IS VERY IRRITABLE THAT HE IS BEING DISTURBED SO MANY TIMES, PATIENT REPORTS HE "JUST WANTS TO SLEEP" EVEN AFTER PATIENT EDUCATED ON SITUATION. WILL CONTINUE TO MONITOR.
[2020-08-15 05:08] LABS: Hematocrit 32.6 % (37.0-53.0); Hemoglobin 10.5 g/dL (13.5-17.5); Mean Corpuscular HGB 29.5 pg (26.0-34.0); Mean Corpuscular HGB Conc 32.2 g/dL (31.5-36.5); Mean Corpuscular Volume 92 fL (80-100); Mean Platelet Volume 11.1 fL (9.1-12.4); Platelet Count 187 K/mm3 (150-400); RDW Coefficient Variation 14.6 % (11.7-14.2); RDW Standard Deviation 49.1 fL (35.1-46.3); Red Blood Cell Count 3.56 M/mm3 (4.30-5.90); White Blood Cell Count 4.45 K/mm3 (4.00-11.30)
[2020-08-15 05:24] LABS: Albumin, Blood 2.3 g/dL (3.4-5.0); Anion Gap 6 mmol/L (6-16); Blood Urea Nitrogen 29 mg/dL (8-24); Bun/Creatinine Ratio 10.9 (12.0-20.0); CO2, Blood 29 mmol/L (21-32); Calcium, Blood 8.1 mg/dL (8.5-10.1); Chloride, Blood 106 mmol/L (98-108); Creatinine, Blood 2.66 mg/dL (0.60-1.20); Glomerular Filtration Rate 26 (60-); Glucose, Blood 116 mg/dL (70-99); Magnesium, Blood 1.8 mg/dL (1.6-2.4); Phosphorus, Blood 4.2 mg/dL (2.5-4.9); Potassium, Blood 3.6 mmol/L (3.5-5.5); Sodium, Blood 141 mmol/L (136-145)
[2020-08-15 05:29] LABS: BAND PERCENT MAN 10 % (0-8); BASOPHILS PERCENT MAN 0 % (0-2); EOSINOPHILS PERCENT MAN 0 % (0-6); LYMPHOCYTES ABSOLUTE MAN 0.08 K/mm3 (0.84-5.20); LYMPHOCYTES PERCENT MAN 2 % (21-46); MONOCYTES ABSOLUTE MAN 0.26 K/mm3 (0.16-1.47); MONOCYTES PERCENT MAN 6 % (4-13); NEUTROPHILS ABSOLUTE MAN 4.09 K/mm3 (1.96-9.15); SEG NEUTROPHILS PERCENT MAN 82 % (41-73); TOTAL CELLS COUNTED 100
--- NOTE | 2020-08-15 07:25 | NUR ---
SHIFT SUMMARY PATIENT IRRITABLE AND EASILY AGITATED THROUGHOUT THE NIGHT, ESPCIALLY WITH VITALS SIGNS OR WHEN ANY TYPE OF CARE WAS ATTEMPTED TO BE PROVIDED. PATIENT APPEARED TO NAP ON AND OFF WELL THROUGHOUT THE NIGHT. PATIENT CONTINUES TO BE ON THE CARDIZEM GTT PER ORDERS. VITAL SIGNS CHARTED. REPORT GIVEN TO ONCOMING RN.
--- NOTE | 2020-08-15 11:59 | NUR ---
CARDIZEM DRIP INCREASED TO 10ML/HR FOR AFIB WITH HR 140-60.
[2020-08-15 16:45] LABS: PCO2 Arterial 30.5 mmHg (35-45); PO2 Arterial 54.9 mmHg (80-100)
--- NOTE | 2020-08-15 16:49 | NUR ---
NURSE NOTE; ENCOURAGED PRONING THROUGHOUT SHIFT, ENCOURAGED AGAIN BY SKILLED LABORER. REFUSES, STATES "I DON'T WANT TO DO IT" REPORTS IT "HURTS". BECOMES AGITATED AND TELLS THIS RN NOT TO COME IN AND TELL HIM WHAT TO DO.
--- NOTE | 2020-08-15 17:43 | NUR ---
SHIFT SUMMARY; A/A/OX4 THROUGHOUT SHIFT. AFFECT FLAT AND APPEARS CONFRONTATIONAL WITH CARE. EVALUATED BY GI TODAY, DENIES BLOODY STOOL, NO SCOPE PLANNED FOR THIS TIME PER GI. PT STATES HE "WOULDN'T DRINK THAT STUFF AGAIN ANYWAY". EVALUATED BY PULMONOLOGY, 10L HIGH FLOW AT THIS TIME TO MAINTAIN STATS OF 92%, ENCOURAGED PRONING MULTIPLE TIMES, SEE PREVIOUS NURSING NOTE. CARDIZEM DRIP CONTINUED AT 5ML/HR. MULTIPLE EPISODES THROUGHOUT SHIFT OF AFIB WITH RATE 140'S, THEN CONVERTS BACK TO SINUS. REMAIN ON CARDIZEM UNTIL PO MEDS CAN TAKE AFFECT FOR RATE CONTROL PER DR. KLEIN. ENGLE CATH IN PLACE, DRAINING CLEAR YELLOW URINE. NO IV FLUIDS AT THIS TIME PER DR. KLEIN. DIALYSIS YESTERDAY, WILL CONTINUE TO MONITOR AND TREAT UNTIL CHANGE OF SHIFT.
[2020-08-16 04:25] LABS: Hematocrit 32.1 % (37.0-53.0); Hemoglobin 10.4 g/dL (13.5-17.5); Mean Corpuscular HGB 30.4 pg (26.0-34.0); Mean Corpuscular HGB Conc 32.4 g/dL (31.5-36.5); Mean Corpuscular Volume 94 fL (80-100); Mean Platelet Volume 10.9 fL (9.1-12.4); Platelet Count 200 K/mm3 (150-400); RDW Coefficient Variation 14.6 % (11.7-14.2); RDW Standard Deviation 50.5 fL (35.1-46.3); Red Blood Cell Count 3.42 M/mm3 (4.30-5.90); White Blood Cell Count 6.37 K/mm3 (4.00-11.30)
[2020-08-16 04:42] LABS: Albumin, Blood 2.2 g/dL (3.4-5.0); Anion Gap 8 mmol/L (6-16); Blood Urea Nitrogen 35 mg/dL (8-24); Bun/Creatinine Ratio 12.2 (12.0-20.0); CO2, Blood 24 mmol/L (21-32); Calcium, Blood 7.9 mg/dL (8.5-10.1); Chloride, Blood 107 mmol/L (98-108); Creatinine, Blood 2.87 mg/dL (0.60-1.20); Glomerular Filtration Rate 24 (60-); Glucose, Blood 137 mg/dL (70-99); Magnesium, Blood 1.6 mg/dL (1.6-2.4); Potassium, Blood 3.8 mmol/L (3.5-5.5); Sodium, Blood 139 mmol/L (136-145)
[2020-08-16 05:03] LABS: BAND PERCENT MAN 5 % (0-8); BASOPHILS PERCENT MAN 0 % (0-2); EOSINOPHILS PERCENT MAN 0 % (0-6); LYMPHOCYTES ABSOLUTE MAN 0.06 K/mm3 (0.84-5.20); LYMPHOCYTES PERCENT MAN 1 % (21-46); MONOCYTES PERCENT MAN 8 % (4-13); NEUTROPHILS ABSOLUTE MAN 5.79 K/mm3 (1.96-9.15); SEG NEUTROPHILS PERCENT MAN 86 % (41-73); TOTAL CELLS COUNTED 100
--- NOTE | 2020-08-16 06:19 | NUR ---
shift summary pt rested throughout night. alert and oriented, able to make needs known. running nsr on heart monitor, with no changes made to card gtt. hr controlled and bp holding. on 10lnc high flow - sats >90%. ojeda output. no bm. no c/o pain. vss. call light within reach, bed in lowest position. will continue to monitor.
--- NOTE | 2020-08-16 08:13 | NUR ---
TORY HOWELL DC'D FOR HEART RATE 70'S IN SINUS RHYTHM SINCE YESTERDAY. WILL CONTINUE TO MONITOR.
--- NOTE | 2020-08-16 10:32 | NUR ---
DIALYSIS WITH PT IN ROOM. WILL GIVE AM MEDS WHEN DIAYLISIS COMPLETE.
--- NOTE | 2020-08-16 15:26 | NUR ---
NURSE UPDATE; IN ROOM SEVERAL TIMES THROUGHOUT DAY TO ENCOURAGE PRONE POSITION. PT CONTINUES TO REFUSE. CURLED UP IN POSITION. EXPLAINED NEED FOR LUNGS TO EXPAND BY REPOSITIONING TO PRONE OR SITTING UP. SIGHS AND SITS UP IN BED, WILL CONTINUE TO MONITOR.
--- NOTE | 2020-08-16 17:42 | NUR ---
SHIFT SUMMARY; A/A/OX4 THROUGHOUT SHIFT TODAY. DIAYLSIS COMPLETE. SBA TO BEDSIDE COMMODE. CONTINUES TO REFUSE TO SELF PRONE OR SIT UPRIGHT. LAYS IN BED IN POSITION DURING MOST OF SHIFT. EDUCATED MULTIPLE TIMES BY RN AND RT REGARDING NEED FOR LUNG EXPANSION. 02 DEMANDS INCREASED THROUGHOUT DAY. AIRVO AT 45L AT THIS TIME TO MAINTAIN SATS OF 88-92% PER [employer] BY PULMONOLOGY. REMAINED IN SINUS RHYTHM THROUGHOUT SHIFT WITH RATE 80-95. TORY HOWELL DC'D THIS AM. WILL CONTINUE TO MONITOR AND TREAT UNTIL CHANGE OF SHIFT.
[2020-08-17 04:12] LABS: BASOPHILS PERCENT AUTO 0 % (0-2); EOSINOPHILS PERCENT AUTO 0 % (0-6); Hematocrit 31.2 % (37.0-53.0); Hemoglobin 9.9 g/dL (13.5-17.5); IMMATURE GRAN ABSOLUTE AUTO 0.04 K/mm3 (0.00-0.10); IMMATURE GRAN PERCENT AUTO 1 % (0-1); LYMPHOCYTES ABSOLUTE AUTO 0.52 K/mm3 (0.84-5.20); LYMPHOCYTES PERCENT AUTO 11 % (21-46); MONOCYTES ABSOLUTE AUTO 0.36 K/mm3 (0.16-1.47); MONOCYTES PERCENT AUTO 7 % (4-13); Mean Corpuscular HGB 29.1 pg (26.0-34.0); Mean Corpuscular HGB Conc 31.7 g/dL (31.5-36.5); Mean Corpuscular Volume 92 fL (80-100); NEUTROPHILS ABSOLUTE AUTO 3.93 K/mm3 (1.96-9.15); NEUTROPHILS PERCENT AUTO 81 % (41-73); Platelet Count 201 K/mm3 (150-400); RDW Coefficient Variation 14.6 % (11.7-14.2); RDW Standard Deviation 49.7 fL (35.1-46.3); White Blood Cell Count 4.85 K/mm3 (4.00-11.30)
[2020-08-17 04:29] LABS: Albumin, Blood 2.3 g/dL (3.4-5.0); Anion Gap 9 mmol/L (6-16); Blood Urea Nitrogen 39 mg/dL (8-24); Bun/Creatinine Ratio 15.5 (12.0-20.0); CO2, Blood 27 mmol/L (21-32); Calcium, Blood 8.2 mg/dL (8.5-10.1); Chloride, Blood 106 mmol/L (98-108); Creatinine, Blood 2.52 mg/dL (0.60-1.20); Glomerular Filtration Rate 28 (60-); Glucose, Blood 129 mg/dL (70-99); Phosphorus, Blood 4.2 mg/dL (2.5-4.9); Potassium, Blood 3.8 mmol/L (3.5-5.5); Sodium, Blood 142 mmol/L (136-145)
--- NOTE | 2020-08-17 06:00 | NUR ---
SHIFT SUMMARY PT RESTED THROUGHOUT THE NIGHT. ALERT AND ORIENTED, ABLE TO MAKE NEEDS KNOWN. TELE NSR. PT PLACED ON AIRVO - 45L @55%. PT DID DO SOME PRONING, BUT MOSTLY LAID ON SIDE. NO SIGNS OF BLOODY BM'S. ENGLE IN PLACE, ELISHA CARE PERFORMED. NO C/O PAIN. VSS. CALL LIGHT WITHIN REACH, BED IN LOWEST POSITION. WILL CONTINUE TO MONITOR.
--- NOTE | 2020-08-17 18:04 | NUR ---
SHIFT SUMMARY; ASSUMED CARE AT 0700. AIR VO IN PLACE. A/A/OX4, CONTINUES THROUGHOUT DAY TO BE AGITATED WITH CARE. PULSE OX ON FLOOR IN ROOM EACH TIME RN ENTERS ROOM. UP TO CHAIR FOR LUNCH. DISCUSSED PRONING AND SITTING UP MUCH POSSIBLE IN CHAIR. DOES NOT PRONE DURING SHIFT TODAY, REFUSES TO SIT IN CHAIR FOR DINNER. VSS, AIRVO DECREASED TO 40% FIO2 45L. L/S. REPOSITIONS SELF NEEDED, SBA TO COMMODE X1 DURING SHIFT. ENGLE IN PLACE DRAINING CLEAR URINE. PERICATH TO R CHEST WALL. DIAYLSIS PLANNED FOR TOMMORROW. NO RECTAL BLEEDING ON SHIFT. REMAINED IN SINUS RHYTHM WITH 1 SHORT RUN OF VTACH THAT SELF CORRECTED TO SINUS. WILL CONTINUE TO MONITOR AND TREAT UNTIL CHANGE OF SHIFT.
[2020-08-18 03:56] LABS: Hematocrit 31.7 % (37.0-53.0); Hemoglobin 10.3 g/dL (13.5-17.5)
[2020-08-18 04:14] LABS: Albumin, Blood 2.2 g/dL (3.4-5.0); Anion Gap 8 mmol/L (6-16); Blood Urea Nitrogen 48 mg/dL (8-24); Bun/Creatinine Ratio 19.2 (12.0-20.0); CO2, Blood 25 mmol/L (21-32); Calcium, Blood 8.2 mg/dL (8.5-10.1); Chloride, Blood 109 mmol/L (98-108); Glomerular Filtration Rate 28 (60-); Glucose, Blood 113 mg/dL (70-99); Magnesium, Blood 1.7 mg/dL (1.6-2.4); Sodium, Blood 142 mmol/L (136-145)
--- NOTE | 2020-08-18 04:48 | NUR ---
SHIFT SUMMARY PT IS VERY WITHDRAWN AND QUIET. IT IS DIFFICULT TO GET HIM TO ANSWER QUESTIONS OR COMMUNICATE ABOUT HIS NEEDS. PT WAS ON AIRVO AT 40LPM AND 40% T/O SHIFT WITH O2 SATS IN THE LOW 90'S. BP WAS 90-100 SYSTOLIC WITH HR IN THE 80'S AND STABLE. PT DENIED ANY PAIN OR SHORTNESS OF BREATH. PT HAS HAD A QUIET UNEVENTFUL NIGHT. WILL CONTINUE TO MONITOR UNTIL SHIFT CHANGE.
--- NOTE | 2020-08-18 11:33 | NUR ---
ASSUMED CARE OF PT THIS AM AFTER RECEIVING REPORT FROM MARC HERNANDEZ. PT HAS BEEN A/O THUS FAR, QUIET AND WITHDRAWN BUT COOPERATIVE WITH CARE. PT MAINTAINING O2 SATS IN LOW 90'S WHILE ON AIR VO, SETTINGS AT 45% AND 40 L/MIN. PT LYING ON RIGHT SIDE, DENIES FURTHER NEEDS AT THIS TIME, CALL LIGHT WITHIN REACH.
--- NOTE | 2020-08-18 18:17 | NUR ---
SHIFT SUMMARY: PT MAINTAINED OXYGEN SATURATIONS IN LOW 90'S WHILE ON AIR VO, SETTINGS AT 40 L/MIN AND 40-45% OXYGEN. PT CONTINUES QUIET AND WITHDRAWN, BUT COOPERATIVE WITH CARE. PT RECEIVED DIALYSIS THIS AFTERNOON, COMPLETE AT APPROX 1545. PT ENCOURAGED TO PRONE, BUT DENIES WHILE STAFF IN ROOM. WILL CONTINUE TO MONITOR AND TREAT ACCORDINGLY.
--- NOTE | 2020-08-19 04:59 | NUR ---
END OF SHIFT SUMMARY NO ACUTE CHANGES THIS SHIFT. PT CANTANKEROUS AND NOT SPEAKING TO STAFF OTHER THAN "YES, NO, GET OUT I WANT TO SLEEP, ETC". REFUSING PHOME CALLS FROM FAMILY. PT REMAINS IN SR WITH STABLE VS. AIRVO TITRATED FROM 45% FIO2 TO 50% AND NOW TO 35%. REMAINS AT 40L. LUNG SOUNDS WITH OCCASIONAL WHEEZING COARSENESS. ENGLE PATENT AND DRAINING. CAMERA REMAINS ON. OTHERWISE, PT RSTING IN ROOM ASKING TO BE LEFT ALONE. WILL CONTINUE TO MONIOTR UNTIL SHIFT CHANGE.
[2020-08-19 05:43] LABS: Hematocrit 34.1 % (37.0-53.0)
[2020-08-19 06:04] LABS: Albumin, Blood 2.4 g/dL (3.4-5.0); Anion Gap 9 mmol/L (6-16); Blood Urea Nitrogen 39 mg/dL (8-24); Bun/Creatinine Ratio 18.3 (12.0-20.0); CO2, Blood 27 mmol/L (21-32); Calcium, Blood 8.5 mg/dL (8.5-10.1); Chloride, Blood 105 mmol/L (98-108); Creatinine, Blood 2.13 mg/dL (0.60-1.20); Glomerular Filtration Rate 34 (60-); Glucose, Blood 89 mg/dL (70-99); Magnesium, Blood 1.8 mg/dL (1.6-2.4); Potassium, Blood 3.3 mmol/L (3.5-5.5); Sodium, Blood 141 mmol/L (136-145)
--- NOTE | 2020-08-19 10:34 | NUR ---
CALLED INTO ROOM AT APPROX 1000; PT HAVING COUGHING EPISODE, SPO2 78-82% TACHYPNIC 30-40 WHILE RECOVERING; ON AIRVO 40L WIHT 35% FIO2; SITTING ON SIDE OF BED IN TRIPOS POSITION. CALLED RT AND TITRATED TO 82% FIO2, SPO2 UP TO 89-92%; UNABLE TO TITRATE BACK DOWN. NOTIIFED RT; RT TO ROOM TO ASSESS PT.
--- NOTE | 2020-08-19 18:38 | NUR ---
SHIFT SUMMARY PT A&Ox3; FLAT AND WITHDRAWN. PT SBA IN ROOM. PT DENIES PAIN, NAUSEA, DIZZINESS. PT SOB AT REST; ENCOURAGED PRONING T/O SHIFT, PT REFUSING. SPO2 DROPPED WITH COUGHING EPISODES; TITRATED FIO2%. ENCOURAGED PROPOSEFUL COUGH AND DEEP BREATHING. PT RECEIVING IV ANTIBIOTIC. OTHER VSS. NO OTHER ACUTE CHANGES NOTED DURING SHIFT. WILL CONITNUE TO MONITOR UNTIL REPORT GIVEN TO ONCOMING RN.
--- NOTE | 2020-08-20 04:45 | NUR ---
END OF SHIFT SUMMARY NO ACUTE CHANGES THIS SHIFT. NOT CANTANKEROUS THIS SHIFT. AXO. HAS BEEN TITRATED BETWEEN 35L 50% TO 40L 50% TO 40L 35% AIRVO THIS SHIFT TO MEET O2 NEEDS WITH SPO2 >88%. LUNG SOUNDS LESS WHEEZY THIS SHIFT THAN LAST NOC BUT CONTINUES WITH BASILAR CRACKLES. PT HAS VOIDED MULTIPLE TIMES THIS SHIFT IN URINAL. HAS HAD 2 BM'S, PASTY GREEN/BROWN WITH SOME LIGHT RUST COLORING. POWERGLIDE CONTINUES JAHAIRA PUSH/PULL BLOOD EASILY. REMAINS IN ISOLATION. DR BATISTA VISITED PT TONIGHT, NO NEW ORDERS. WILL CONTINUE TO MONIOTR UNTIL SHIFT CHANGE.
[2020-08-20 05:25] LABS: BASOPHILS ABSOLUTE AUTO 0.03 K/mm3 (0.00-0.23); BASOPHILS PERCENT AUTO 0 % (0-2); EOSINOPHILS ABSOLUTE AUTO 0.04 K/mm3 (0.00-0.68); EOSINOPHILS PERCENT AUTO 0 % (0-6); Hematocrit 34.6 % (37.0-53.0); Hemoglobin 10.9 g/dL (13.5-17.5); IMMATURE GRAN ABSOLUTE AUTO 0.21 K/mm3 (0.00-0.10); IMMATURE GRAN PERCENT AUTO 2 % (0-1); LYMPHOCYTES ABSOLUTE AUTO 0.84 K/mm3 (0.84-5.20); LYMPHOCYTES PERCENT AUTO 7 % (21-46); MONOCYTES ABSOLUTE AUTO 0.45 K/mm3 (0.16-1.47); MONOCYTES PERCENT AUTO 4 % (4-13); Mean Corpuscular HGB 29.4 pg (26.0-34.0); Mean Corpuscular HGB Conc 31.5 g/dL (31.5-36.5); Mean Corpuscular Volume 93 fL (80-100); Mean Platelet Volume 10.9 fL (9.1-12.4); NEUTROPHILS ABSOLUTE AUTO 11.35 K/mm3 (1.96-9.15); NEUTROPHILS PERCENT AUTO 88 % (41-73); Platelet Count 223 K/mm3 (150-400); RDW Coefficient Variation 14.4 % (11.7-14.2); RDW Standard Deviation 49.1 fL (35.1-46.3); Red Blood Cell Count 3.71 M/mm3 (4.30-5.90); White Blood Cell Count 12.92 K/mm3 (4.00-11.30)
[2020-08-20 05:50] LABS: Albumin, Blood 2.3 g/dL (3.4-5.0); Anion Gap 10 mmol/L (6-16); Blood Urea Nitrogen 59 mg/dL (8-24); Bun/Creatinine Ratio 22.2 (12.0-20.0); CO2, Blood 25 mmol/L (21-32); Calcium, Blood 8.6 mg/dL (8.5-10.1); Chloride, Blood 108 mmol/L (98-108); Creatinine, Blood 2.66 mg/dL (0.60-1.20); Glomerular Filtration Rate 26 (60-); Glucose, Blood 99 mg/dL (70-99); Magnesium, Blood 2.1 mg/dL (1.6-2.4); Phosphorus, Blood 2.9 mg/dL (2.5-4.9); Potassium, Blood 3.4 mmol/L (3.5-5.5); Sodium, Blood 143 mmol/L (136-145)
--- NOTE | 2020-08-20 17:43 | NUR ---
SHIFT SUMMARY PT A&Ox4; ANXIOUS AT TIMES BUT COOPERATIVE WITH CARE. PT RESTING IN BED DURING SHIFT, UP TO SHOWER AND UP ON SIDE OF BED FOR MEALS. PT SOB WITH ACTIVITY; SPO2 >88% T/O SHIFT; TITRATED FROM AIRVO TO 7L O2 VIA HIGH FLOW NC. PT RECEIIVNG IV STEROIDS. PT DENIES PAIN, NAUSEA AND DIZZINESS. CONTINUE TO ENCOURAGE PT TO DO PROPUSFUL COUGH AND DEEP BREATHING OFTEN AND PRONE. VSS. DIALYSIS THIS AFTERNOON. VSS. PT MORE CONVERSATIONAL WITH STAFF. NO OTHER ACUTE CHANGES NOTED DURING SHIFT. WILL CONTINUE TO MONITOR UNTIL REPORT GIVEN TO ONCOMING RN.
--- NOTE | 2020-08-21 01:35 | NUR ---
PATIENT HEART RATE 180-200'S; TELEMETRY REPORTS SVT FOR 4 MINUTES; DR. GAMEZ CALLED BY THIS RN; ORDERS FOR ADENOSINE 6MG NOW AND AGAIN IN 5 MINUTES IF NEEDED. [facility] DRIVERCARDIOVASCULAR LAB DIRECTOR LAWRENCE White CALLED; EKG DONE; AFIB. ADENOSINE NOT GIVEN; DR. GAMEZ UPDATED; ORDERS FOR IV CARDIZEM; UPDATED ON SBP 80-90'S; MONITOR VS EVERY 15 MINUTES; TRANSFER TO ICU IF BP DECREASES. WILL CONTINUTUE TO MONITOR AND ASSESS UNTIL END OF SHIFT.
[2020-08-21 01:53] LABS: BASOPHILS ABSOLUTE AUTO 0.02 K/mm3 (0.00-0.23); BASOPHILS PERCENT AUTO 0 % (0-2); EOSINOPHILS ABSOLUTE AUTO 0.04 K/mm3 (0.00-0.68); EOSINOPHILS PERCENT AUTO 0 % (0-6); Hematocrit 32.6 % (37.0-53.0); Hemoglobin 10.4 g/dL (13.5-17.5); IMMATURE GRAN ABSOLUTE AUTO 0.26 K/mm3 (0.00-0.10); IMMATURE GRAN PERCENT AUTO 2 % (0-1); LYMPHOCYTES ABSOLUTE AUTO 0.65 K/mm3 (0.84-5.20); LYMPHOCYTES PERCENT AUTO 5 % (21-46); MONOCYTES PERCENT AUTO 2 % (4-13); Mean Corpuscular HGB 29.5 pg (26.0-34.0); Mean Corpuscular HGB Conc 31.9 g/dL (31.5-36.5); Mean Corpuscular Volume 92 fL (80-100); Mean Platelet Volume 10.4 fL (9.1-12.4); NEUTROPHILS ABSOLUTE AUTO 12.16 K/mm3 (1.96-9.15); NEUTROPHILS PERCENT AUTO 91 % (41-73); Platelet Count 168 K/mm3 (150-400); RDW Coefficient Variation 14.6 % (11.7-14.2); RDW Standard Deviation 49.2 fL (35.1-46.3); Red Blood Cell Count 3.53 M/mm3 (4.30-5.90); White Blood Cell Count 13.43 K/mm3 (4.00-11.30)
[2020-08-21 02:08] LABS: Albumin, Blood 2.2 g/dL (3.4-5.0); Anion Gap 8 mmol/L (6-16); Blood Urea Nitrogen 60 mg/dL (8-24); Bun/Creatinine Ratio 18.9 (12.0-20.0); CO2, Blood 29 mmol/L (21-32); Calcium, Blood 8.3 mg/dL (8.5-10.1); Chloride, Blood 103 mmol/L (98-108); Creatinine, Blood 3.18 mg/dL (0.60-1.20); Glomerular Filtration Rate 21 (60-); Glucose, Blood 122 mg/dL (70-99); Magnesium, Blood 2.1 mg/dL (1.6-2.4); Phosphorus, Blood 3.4 mg/dL (2.5-4.9); Potassium, Blood 3.5 mmol/L (3.5-5.5); Sodium, Blood 140 mmol/L (136-145)
--- NOTE | 2020-08-21 02:40 | NUR ---
DILTIAZEM DRIP RATE CHANGE DILTIAZEM INF RATE CHANGED FROM 5ML/HR TO 10ML/HR AT 0233. PT ON ISOLATION, WILL SCAN AND DOCUMENT IN EMAR WITH NEXT BP. BP Q30MIN.
--- NOTE | 2020-08-21 06:19 | NUR ---
SHIFT SUMMARY PT WAS ALERT AND ORIENTED, MOOD WAS WITHDRAWN BUT COOPERATIVE WITH CARE. PT SAT UP TO SIDE OF BED TO URINATE AND HR JUMPED INTO THE 170-190'S. TELE SHOWED AFIB WITH RVR. CALLED DR BLAND AND DILTIAZEM WAS ORDERED AND STARTED AT 5MG/HR. BP HYPOTENSIVE, 80'S SYSTOLIC. DILTIAZEM RATE INCREASED TO 10MG/HR WITH HR 140-150'S. 10MG/HR CONTINUED WITH BP UP TO 90 SYSTOLIC AND HR DOWN TO 120-130'S. BP STABLE AT AROUND 90 SYSTOLIC AND HR 130'S. RADIAL PULSES WERE IRREGULAR. PT WAS ASYMPTOMATIC T/O THE EVENT. PT DID STATE THE URGE TO URINATE BUT WAS UNABLE TO VOID. BLADDER SCAN SHOWED ABOUT 500ML, STRAIGHT CATHED PT AND VOIDED 375ML. PT STATED HE NO LONGER HAD THE URGE TO VOID. PT CURRENTLY ON 7LPM VIA NC WITH O2 SATS IN THE LOW 90'S. PT DENIED ANY SOB. PT CURRENTLY ON 10MG/HR OF DILTIAZEM. WILL CONTINUE TO MONITOR UNTIL SHIFT CHANGE.
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
--- NOTE | 2020-08-21 09:00 | NUR ---
Galo is sitting up in chair, finished breakfast. Denies dyspnea, denies any discomfort. Denies dizzyness, palpitations, lightheadness or nausea at this time with heart rate at 150 bpm which was just called to me by Claudia Dai. Blood pressure is 84/59 Zosyln from lab here at this time, blood cultures being drawn.
--- NOTE | 2020-08-21 10:01 | NUR ---
Pt is back in bed, awake, watching TV. His heart rate is mostly 109-120 at rest, occasional spike to 134-140 if he has minimal activity. Denies any uncomfortable symptoms.
--- NOTE | 2020-08-21 14:11 | NUR ---
1300 BLADDER SCAN MEASURED 230 CC. 1330 Pt was weaned down to 5 l/min O2 delivery. Vital signs stable. Heart rate decreasing, now 88-109 bpm , atrial fibrillation.
--- NOTE | 2020-08-21 15:42 | NUR ---
Heart rate 80-99 bpm. Cardizem turned off completely at this time. Pt states he does not think that he can void. Bladder scanned at this time, 318 cc noted. Blood pressure remains stable, but low. Afebrile. No cough, no dyspnea. spo2 90% on 5 l/min O2 delivery via n.c. Pt is lying in bed, watching TV.
--- NOTE | 2020-08-21 15:57 | NUR ---
The pt's heart rate increased when he sat up on the side of the bed to attempt to use the urinal after I left the room. Camera surveillance monitor called and said that he was sitting on the side of the bed, and quality assurance monitor tech called me to say that the pt's heart rate had jumped up to 137-150 during the activity. Cardizem gtt was turned back on to 5 cc/min, and after the pt got back into a reclined position, his heart rate was decreased to 80-100 bpm rate. He is asymptomatic during this time. Cardizem turned off again at this time.
--- NOTE | 2020-08-21 17:07 | NUR ---
Requested OOB assistance to go to bathroom to have BM. Asked pt not to flush so that we can document color and quality of stool. Noted tachypnea with activity, and shortness of breath after returning from bathroom. PCU traffic monitor specialist tech says heart rate is "all over the place, 120-150 with activity, 80-100 while at rest in bed". Bowel movement was brown, unformed.
[2020-08-22 04:05] LABS: BASOPHILS ABSOLUTE AUTO 0.04 K/mm3 (0.00-0.23); BASOPHILS PERCENT AUTO 0 % (0-2); EOSINOPHILS PERCENT AUTO 0 % (0-6); Hematocrit 36.7 % (37.0-53.0); Hemoglobin 11.9 g/dL (13.5-17.5); IMMATURE GRAN ABSOLUTE AUTO 0.38 K/mm3 (0.00-0.10); IMMATURE GRAN PERCENT AUTO 2 % (0-1); LYMPHOCYTES ABSOLUTE AUTO 0.93 K/mm3 (0.84-5.20); LYMPHOCYTES PERCENT AUTO 5 % (21-46); MONOCYTES ABSOLUTE AUTO 0.64 K/mm3 (0.16-1.47); MONOCYTES PERCENT AUTO 3 % (4-13); Mean Corpuscular HGB 29.8 pg (26.0-34.0); Mean Corpuscular HGB Conc 32.4 g/dL (31.5-36.5); Mean Corpuscular Volume 92 fL (80-100); Mean Platelet Volume 11.2 fL (9.1-12.4); NEUTROPHILS ABSOLUTE AUTO 17.75 K/mm3 (1.96-9.15); NEUTROPHILS PERCENT AUTO 90 % (41-73); Platelet Count 260 K/mm3 (150-400); RDW Coefficient Variation 14.3 % (11.7-14.2); White Blood Cell Count 19.74 K/mm3 (4.00-11.30)
[2020-08-22 04:36] LABS: Albumin, Blood 2.4 g/dL (3.4-5.0); Anion Gap 11 mmol/L (6-16); Blood Urea Nitrogen 87 mg/dL (8-24); Bun/Creatinine Ratio 24.9 (12.0-20.0); CO2, Blood 22 mmol/L (21-32); Calcium, Blood 8.9 mg/dL (8.5-10.1); Chloride, Blood 106 mmol/L (98-108); Digoxin (Lanoxin) 1.75 ug/mL (0.80-2.00); Glomerular Filtration Rate 19 (60-); Glucose, Blood 111 mg/dL (70-99); Magnesium, Blood 2.3 mg/dL (1.6-2.4); Phosphorus, Blood 3.8 mg/dL (2.5-4.9); Potassium, Blood 4.1 mmol/L (3.5-5.5); Sodium, Blood 139 mmol/L (136-145)
--- NOTE | 2020-08-22 05:26 | NUR ---
SHIFT SUMMARY PT RESTED WELL THROUGH NIGHT. ALERT AND ORIENTED - ABLE TO MAKE NEEDS KNOWN. STILL HAS WITHDRAWN ATTITUDE. SEEMS IRRITABLE TOWARDS STAFF. CONVERTED TO NORMAL SINUS RHYTHYM FROM AFIB AT 0335. ON 5LNC - MAINTAINING SATS ABOVE 90%. NO SKIN ISSUES. UP TO BATHROOM X2 FOR BM. BLADDER SCANNED X2: FIRST READ 523ML - STRAIGHT CATHED 430ML OUT, SECOND READ 534ML - STRAIGHT CATHED 500ML OUT. BOTH TIMES PT FELT DISTENDED AND UNCOMFORTABLE. AFTER STRAIGHT CATH, PT FELT RELIEVED. NO C/O PAIN. VSS. CALL LIGHT WITHIN REACH, BED IN LOWEST POSITION. WILL CONTINUE TO MONITOR.
--- NOTE | 2020-08-22 13:08 | NUR ---
PROGRESS NOTE; AFTER BLADDER SCAN USED URINAL AND WAS ABLE TO VOID 50ML. SAT ON COMMODE TO HAVE BM AND URINATED INTO COMMODE, UNABLE TO MEASURE. WILL CONTINUE TO MONITOR FOR URINE OUTPUT AND BLADDER SCAN Q6.
--- NOTE | 2020-08-22 15:00 | NUR ---
TELEPHONE CALL TO DR. NEWTON REGARDING POSITIVE BLOOD CULTURES. VERBAL ORDER GIVEN FOR VANCO PER PHARMACY PROTOCOL.
--- NOTE | 2020-08-22 18:11 | NUR ---
SHIFT SUMMARY; ASSUMED CARE AT 0700, A/A/OX4 THROUGHOUT SHIFT. SITTING UP IN BED IN HIGH FOWLERS MOST OF SHIFT. MORE COOPERATIVE WITH CARE THAN PREVIOUS SHIFTS. DIAYLSIS COMPLETE TODAY. REMAINS ON 5L 02 VIA FL TO MAINTAIN SATS OF 88-92%. BLADDER SCAN Q6. VOIDED AFTER AM BLADDER SCAN BUT COULD NOT MEASURE, MIXED WITH STOOL AND TISSUE. STRAIGHT CATH IN EVENING WITH 400 OUT, TOLERATED WELL. VANCO STARTED TODAY PER PHARMACY PROTOCOL AND TELEPHONE ORDER FROM DR. NEWTON FOR POSITIVE BLOOD CULTURES. NO ACUTE CHANGES DURING SHIFT. WILL CONTINUE TO TREAT AND MONITOR UNTIL CHANGE OF SHIFT.
--- NOTE | 2020-08-23 06:00 | NUR ---
BLADDER SCAN PATIENT STATED THAT HE THINKS HE WILL BE ABLE TO VOID IN THE NEXT LITTLE WHILE.
--- NOTE | 2020-08-23 06:33 | NUR ---
SHIFT SUMMARY PATIENT CONTINUES TO BE IRRITABLE AND GRUMPY WHEN VITAL SIGNS ARE TAKEN AND WITH ANY CARE. PATIENT APPEARED TO SLEEP WELL THROUGHOUT THE NIGHT. PATIENT APPEARES TO BE ABLE TO TURN SELF IN BED. VITAL SIGNS CHARTED. PATIENT ABLE TO BE TITRATED FROM 5L DOWN TO 4.5L OF O2. PATIENT REMAINED IN SINUS RHYTHM THROUGHOUT THE NIGHT. WILL CONTINUE TO MONITOR PATIENT AND REPORT TO ONCOMING RN.
[2020-08-23 08:26] LABS: BASOPHILS ABSOLUTE AUTO 0.03 K/mm3 (0.00-0.23); BASOPHILS PERCENT AUTO 0 % (0-2); EOSINOPHILS PERCENT AUTO 0 % (0-6); Hematocrit 35.4 % (37.0-53.0); Hemoglobin 11.3 g/dL (13.5-17.5); IMMATURE GRAN PERCENT AUTO 2 % (0-1); LYMPHOCYTES PERCENT AUTO 5 % (21-46); MONOCYTES ABSOLUTE AUTO 0.83 K/mm3 (0.16-1.47); MONOCYTES PERCENT AUTO 5 % (4-13); Mean Corpuscular HGB 29.7 pg (26.0-34.0); Mean Corpuscular HGB Conc 31.9 g/dL (31.5-36.5); Mean Corpuscular Volume 93 fL (80-100); Mean Platelet Volume 10.9 fL (9.1-12.4); NEUTROPHILS ABSOLUTE AUTO 14.93 K/mm3 (1.96-9.15); NEUTROPHILS PERCENT AUTO 88 % (41-73); Platelet Count 239 K/mm3 (150-400); RDW Coefficient Variation 14.2 % (11.7-14.2); RDW Standard Deviation 47.8 fL (35.1-46.3); White Blood Cell Count 16.99 K/mm3 (4.00-11.30)
[2020-08-23 09:02] LABS: Albumin, Blood 2.4 g/dL (3.4-5.0); Anion Gap 8 mmol/L (6-16); Blood Urea Nitrogen 66 mg/dL (8-24); Bun/Creatinine Ratio 24.4 (12.0-20.0); CO2, Blood 28 mmol/L (21-32); Calcium, Blood 8.6 mg/dL (8.5-10.1); Chloride, Blood 105 mmol/L (98-108); Creatinine, Blood 2.71 mg/dL (0.60-1.20); Digoxin (Lanoxin) 1.39 ug/mL (0.80-2.00); Glomerular Filtration Rate 26 (60-); Glucose, Blood 86 mg/dL (70-99); Potassium, Blood 3.9 mmol/L (3.5-5.5); Sodium, Blood 141 mmol/L (136-145)
--- NOTE | 2020-08-23 18:00 | NUR ---
NO ACUTE EVENTS THIS SHIFT. VSS, PATIENT ABLE TO AMBULATE INDEPENDENTLY IN ROOM. PATIENT DOWN TO 2.5 L VIA NASAL CANNULA, MAINTAINING O2 SATS IN 90S. BLADDER SCANNED TWICE THIS SHIFT, FIRST SCAN 433, SECOND SCAN 455. PATIENT HAS HAD MULTIPLE UNMEASURED VOIDS THIS SHIFT . 500 ML PARAMETERS FOR STRAIGHT CATH NOT MET, PATIENT CONTINUES TO WANT TO ATTEMPT VOIDING WITHOUT CATH. PATIENT IN SINUS, HR INCREASED UP TO 130S AT ONE TIME THIS SHIFT WHEN PATIENT WAS AMBULATING IN ROOM.
--- NOTE | 2020-08-23 20:38 | NUR ---
ASSUMED CARE 1900 - AXO. ON 2LNC, SPO2 >94%. 100% DINNER EATEN. PT DENIES BLADDER DISCOMFORT. MD IN SR. HOTN BUT STABLE. PERMACATH DRESSING CDI. POWERGLIDE INTACT AND FLUSHING EASILY. PT CANTANKEROUS PER BASELINE BUT IS SAYING THANKYOU. LUNG SOUNDS CLEAR AND SLIGHTLY COARSE IN BASES.
--- NOTE | 2020-08-24 05:00 | NUR ---
END OF SHIFT SUMMARY NO ACUTE CHANGES THIS SHIFT. VSS, EXCEPT HOTN, MAP >70 HOWEVER. REMAINS SIIMILAR TO PAST BP'S. RENMAINS ON 2LNC, SPO2 >92%. LUNG SOUNDS CONTINUE WITH FINE CRACKLES IN BASES AND CLEAR IN UPPER LOBES. PT RETAINING URINE. STRAIHGHT CATH X1 WITH AMOUNT >500. POWERGLIDE PATENT BUT NOT DRAWING ANYMORE. PT RESTING IN ROOM NOT WANTING TO BE BOTHERED BY STAFF BUT HAS BEEN MORE AGREEABLE THIS SHIFT. WILL CONTINUE TO MONITOR UNTIL SHIFT CHANGE.
[2020-08-24 05:26] LABS: Albumin, Blood 2.2 g/dL (3.4-5.0); Anion Gap 10 mmol/L (6-16); Blood Urea Nitrogen 89 mg/dL (8-24); Bun/Creatinine Ratio 28.1 (12.0-20.0); CO2, Blood 24 mmol/L (21-32); Calcium, Blood 8.4 mg/dL (8.5-10.1); Chloride, Blood 106 mmol/L (98-108); Creatinine, Blood 3.17 mg/dL (0.60-1.20); Glomerular Filtration Rate 21 (60-); Glucose, Blood 78 mg/dL (70-99); Potassium, Blood 4.2 mmol/L (3.5-5.5); Sodium, Blood 140 mmol/L (136-145)
--- NOTE | 2020-08-24 05:33 | NUR ---
STRAIGHT CATH BLADDER SCAN SHOWS 550MLS URINE. STRAIGHT CATH PERFORMED. DIFFICULT TO ACCESS BLADDER, ONCE BLADDER REACHED, URINE FLOW INTO URINAL. HAD TO SIT PT UP FOR CONTINUED FLOW. PT NOT TOLERATING THIS ANYMORE FLOW STOPPED. CATHETER PULLED BACK OUT. TOTAL OF AROUND 150MLS URINE OUT. PT DENIES ABD/BLADDER DISCOMFORT.
--- NOTE | 2020-08-24 09:32 | NUR ---
CURRENTLY IN DIAYLISIS. WILL MEDCIATE WITH AM MEDS WHEN DIAYLSIS COMPLETE.
--- NOTE | 2020-08-24 13:59 | NUR ---
SHIFT UPDATE; ENGLE CATH PLACED PER ORDERS FOR URINARY RETENTION. 650 OUT. 02 SATS DECREASED TO 86% WHEN IN ROOM. INCREASED O2 TO 4L, O2 SAT 90% AT THIS TIME. ENCOURAGED DEEP BREATHING AND INCENTIVE SPIROMETER. PT REFUSES TO USE IS OR LAY IN PRONE POSITION. WILL CONTINUE TO MONITOR.
--- NOTE | 2020-08-24 15:20 | NUR ---
REPORT TO ZAYDA COVINGTON FOR IN HOUSE TRANSFER.
--- NOTE | 2020-08-24 18:18 | NUR ---
SHIFT SUMMARY: PATIENT XFR FROM [facility] THIS SHIFT. PT A&O; FLAT/WITHDRAWN.TELE D/C'd PRIOR TO XFR TO MEDICAL FLOOR. NO C/O PAIN. ENGLE IN PLACE; PATENT AND DRAINING. DIALYSIS EARLY THIS SHIFT; PT TOLERATED WELL. PHYSICAL THERAPY FOLLOWING. WCTM.
--- NOTE | 2020-08-24 22:13 | NUR ---
59 Y/O MALE RESTING COMFORTABLY IN BED; CHEERFUL; WEARING O2 AT 4L/M PER NASAL CANNULA WITH O2 SAT 91%; ALERT AND ORIENTED X 4, QUIET AND WITHDRAWN; ENGLE CATHETER DRAINING CLEAR YELLOW FLUID.
--- NOTE | 2020-08-25 04:02 | NUR ---
SHIFT SUMMARY: 59 Y/O MALE RESTED COMFORTABLY IN BED ALL SHIFT; DENIES PAIN OR NAUSEA; ALERT AND ORIENTED X 4; TELEMETRY REFELCTS NSR PER SEN--FROZEN FOOD SELECTOR; ENGLE DRAINING CLEAR YELLOW FLUID; BED LOW POSITION WITH CALL LIGHT AT SIDE.
[2020-08-25 06:45] LABS: Hematocrit 33.4 % (37.0-53.0); Hemoglobin 10.7 g/dL (13.5-17.5)
[2020-08-25 07:08] LABS: Albumin, Blood 2.2 g/dL (3.4-5.0); Anion Gap 11 mmol/L (6-16); Blood Urea Nitrogen 71 mg/dL (8-24); Bun/Creatinine Ratio 24.2 (12.0-20.0); CO2, Blood 22 mmol/L (21-32); Calcium, Blood 8.2 mg/dL (8.5-10.1); Chloride, Blood 105 mmol/L (98-108); Creatinine, Blood 2.93 mg/dL (0.60-1.20); Glomerular Filtration Rate 23 (60-); Glucose, Blood 69 mg/dL (70-99); Potassium, Blood 3.8 mmol/L (3.5-5.5); Sodium, Blood 138 mmol/L (136-145)
[2020-08-25 07:17] LABS: Digoxin (Lanoxin) 1.33 ug/mL (0.80-2.00)
--- NOTE | 2020-08-25 11:28 | NUR ---
HE HAS EATEN BREAKFAST, WATCHED TV, TAKEN AM MEDS AND NAPPED. ROUNDED. SCD'S WERE RESUMED BEFORE BREAKFAST. RCW PERMACATH DRESSING CD&I AND CATH CAPPED. ENGLE PATENT WITH CLEAR LUISA URINE. NO DIALYSIS TODAY. AFFECT VERY FLAT. NO COMPLAINTS. DROPLET ISOLATION IN PLACE FOR HIS COVID INFECTION.
--- NOTE | 2020-08-25 12:53 | NUR ---
HE HAS NO INTEREST IN GETTING OUT OF BED BUT I WILL CONTINUE TO ENCOURAGE HIM. HE ATE MOST OF HIS LUNCH AND IS WATCHING TV.
--- NOTE | 2020-08-25 14:33 | NUR ---
HE SATTED 91% AND LATER 93% ON 3L HI FLOW O2 CANNULA THIS MORNING. I TURNED HIM DOWN TO 2L. I CHECKED HIS BIOX ON 2L JUST AFTER HE GOT BACK IN BED FROM THE BSC. HIS SAT WAS 86%. HE DID NOT RECOVER ON 2L OVER A COUPLE OF MINUTES SO I TURNED HIM UP TO 3L THEN 4L. AFTER A TOTAL OF 5 MIN, HE BECAME STABLE ON 3L AT 91 TO 93%.
--- NOTE | 2020-08-25 18:09 | NUR ---
LESIA IS TRYING TO SLEEP AFTER DINNER. HE EATS WELL. HOME O2 EVAL DONE. HE WAS 80% ON RA AT REST. HE NEEDS 3L O2 AT REST OR MINOR ACTIVITY TO MAINTAIN SATS ABOVE 90%. HE HAD A BM. HE TRANSFERRED HIMSELF TO AND FROM THE [facility]. HE HAS A ENGLE. VSS. PG LORENZO NOT USED TODAY FOR ANY MEDICATIONS. NO DIALYSIS. RCW PERMACATH DRESSING CD&I. HIS AFFECT REMAINS FLAT.
--- NOTE | 2020-08-25 20:13 | NUR ---
ASSUMED CARE. LESIA IS NOT VERY VERBAL, HE DOES ALOT OF HEAD NODDING TO ANSWER QUESTIONS. VS SHOWED DROP IN HIS SATS DOWN TO 84% ON 2 LITERS. LUNG SOUNDS HAVE VERY FINE CRACKLES IN THE BASES. DENIES ANY COUGH OR CONGESTION. REPOSITIONED UP IN BED TO SEE IF THAT WOULD HELP. STILL DID NOT INCREASE. O2 INCREASED TO 5 LITERS WITH ONLY GETTING SATS TO 90%. HR WNL ALONG WITH REST OF VITALS. HE DENIES DIFFICULTY BREATHING OR ANY DISCOMFORT. CALLED DR. AVALOS AND INFORMED OF THE CHANGE. DUE TO HIM BEING A DIALYSIS PATIENT AND NOT GETTING TREATMENT TODAY, IT MIGHT BE SOME FLUID OVERLOAD. SHE WILL PRESCRIBE AN INHALER, AND LASIX. WILL ADMINISTER AND MONITOR FOR CHANGES. CALL LIGHT IS IN REACH, HE PERFERS TO JUST SLEEP AND BE LEFT ALONE.
--- NOTE | 2020-08-26 05:19 | NUR ---
SHIFT SUMMARY: LESIA IS A VERY QUITE GENTALMAN WHO LIKES TO BE LEFT ALONE. HE ONLY ANSWERS QUESTIONS BY HEAD NODS OR SIMPLE YES OR NO. LUNG SOUNDS WERE FINE CRACKLES AT START OF SHIFT WITH SATS DOWN IN THE 80'S. HAD TO INCREASE HIS OXYGEN TO [address] AVALOS WAS CALLED AND NOTIFIED, LASIX WAS ORDERED AND GIVEN. HE HAD OUR OVER 1000 WITH IN AN HOUR. VS HAVE BEEN STABLE OTHER THEN INCREASE IN O2. AFTER MEDS HE SLEPT REST OF SHIFT. CALL LIGHT HAS REMAINED IN REACH.
[2020-08-26 06:29] LABS: Hematocrit 33.4 % (37.0-53.0); Hemoglobin 10.6 g/dL (13.5-17.5)
[2020-08-26 06:43] LABS: Magnesium, Blood 1.9 mg/dL (1.6-2.4)
[2020-08-26 06:44] LABS: Albumin, Blood 2.2 g/dL (3.4-5.0); Anion Gap 10 mmol/L (6-16); Blood Urea Nitrogen 75 mg/dL (8-24); Bun/Creatinine Ratio 23.1 (12.0-20.0); CO2, Blood 26 mmol/L (21-32); Calcium, Blood 8.4 mg/dL (8.5-10.1); Chloride, Blood 103 mmol/L (98-108); Creatinine, Blood 3.25 mg/dL (0.60-1.20); Glomerular Filtration Rate 21 (60-); Glucose, Blood 83 mg/dL (70-99); Phosphorus, Blood 4.6 mg/dL (2.5-4.9); Sodium, Blood 139 mmol/L (136-145)
--- NOTE | 2020-08-26 13:09 | NUR ---
HE TOLERATED DIALYSIS WELL THIS MORNING. THEY PULLED OFF 800 MLS. HE HAS DENIED ANY DIFFICULTIES. HE EATS AND DRINKS WELL. O2 3L. [facility] DELIVERED HIS PORTABLE O2 TANK. THEY ALSO RECEIVED HIS PHYSICAL HOME ADDRESS FOR DELIVERY OF THE CONCENTRATOR. HE WAS UNABLE TO TELL ME HIS ADDRESS. I CALLED HIS FOR THE INFO. [place]
[2020-08-26 14:20] LABS: PCO2 Arterial 33.4 mmHg (35-45); PO2 Arterial 55.3 mmHg (80-100)
--- NOTE | 2020-08-26 17:52 | NUR ---
HE CONTINUES TO HAVE A FLAT AFFECT AND SOMETIMES SAYS THE WRONG WORD. THAT BEING SAID, HE DID CONVERSE MORE TODAY AND WAS VERY POLITE. HE HAD DIALYSIS THIS MORNING LOSING 800 MLS FLUID. HIS BP WAS LOW NEARING THE END OF DIALYSIS AND SIMILARLY LOW A FEW HRS LATER. HE WAS COMPLETLY ASYMPTOMATIC BUT VS WERE RE-CHECKED AN HOUR LATER. TEMP AND PULSE CAME DOWN AND BP WENT SLIGHTLY UP. ENGLE DRAINS WELL. HE HAD A BM TODAY. O2 HAS BEEN ON 3L ALL DAY. PORTABLE O2 TANK WAS DELIVERED BY [facility] FOR HIS RIDE HOME WHEN HE IS DISCHARGED.
--- NOTE | 2020-08-26 19:45 | NUR ---
ASSUMED CARE. LESIA IS MORE AWAKE AND TALKATIVE TONIGHT, HE WAS ACTUALLY ANSWERING QUESTIONS INSTEAD OF SHRUGGING HIS SHOULDERS. HE SAID HIS BREATHING IS BETTER BUT HE STILL GETS REAL SOB WHEN HE HAS TO GET UP TO THE BSC. DENIES ANY PAIN OR DISCOMFORT. CATHETER IS STILL PATIENT AND DRAINING. APPETITE IS FAIR. LUNG SOUNDS DIMINISHED IN BASES, COUGH IS OCCATIONAL. SATS GOOD ON 3 LITERS OF O2. WILL CONTINUE TO MONITOR. CALL LIGHT IS IN REACH.
--- NOTE | 2020-08-27 05:06 | NUR ---
SHIFT SUMMARY: LESIA WAS MORE TALKATIVE THIS SHIFT. LUNGS ARE DIMINISHED SLIGHTLY IN THE BASES. MILD COUGH OFF AND ON. STATES SOB ONLY WHEN HE GETS TO BSC. NO HEADACHES. DECREASED IN APPETITE STILL. CATHETER STILL PUTTING OUT YELLOW URINE. VS WNL, AFEBRILE. NO OTHER CHANGES TO REPORT. CALL LIGHT IN REACH.
[2020-08-27 05:29] LABS: Hematocrit 31.5 % (37.0-53.0); Hemoglobin 10.1 g/dL (13.5-17.5)
[2020-08-27 05:52] LABS: Anion Gap 8 mmol/L (6-16); Blood Urea Nitrogen 64 mg/dL (8-24); Bun/Creatinine Ratio 20.3 (12.0-20.0); CO2, Blood 28 mmol/L (21-32); Calcium, Blood 8.3 mg/dL (8.5-10.1); Chloride, Blood 103 mmol/L (98-108); Creatinine, Blood 3.15 mg/dL (0.60-1.20); Glomerular Filtration Rate 22 (60-); Glucose, Blood 87 mg/dL (70-99); Magnesium, Blood 1.9 mg/dL (1.6-2.4); Phosphorus, Blood 4.5 mg/dL (2.5-4.9); Potassium, Blood 3.8 mmol/L (3.5-5.5); Sodium, Blood 139 mmol/L (136-145)
[2020-08-27 12:33] LABS: BASOPHILS ABSOLUTE AUTO 0.05 K/mm3 (0.00-0.23); BASOPHILS PERCENT AUTO 0 % (0-2); EOSINOPHILS ABSOLUTE AUTO 0.17 K/mm3 (0.00-0.68); EOSINOPHILS PERCENT AUTO 1 % (0-6); Hematocrit 34.7 % (37.0-53.0); Hemoglobin 11.1 g/dL (13.5-17.5); IMMATURE GRAN ABSOLUTE AUTO 0.26 K/mm3 (0.00-0.10); IMMATURE GRAN PERCENT AUTO 2 % (0-1); LYMPHOCYTES ABSOLUTE AUTO 1.12 K/mm3 (0.84-5.20); LYMPHOCYTES PERCENT AUTO 8 % (21-46); MONOCYTES ABSOLUTE AUTO 0.76 K/mm3 (0.16-1.47); MONOCYTES PERCENT AUTO 6 % (4-13); Mean Corpuscular HGB 29.7 pg (26.0-34.0); Mean Corpuscular Volume 93 fL (80-100); Mean Platelet Volume 10.5 fL (9.1-12.4); NEUTROPHILS ABSOLUTE AUTO 11.29 K/mm3 (1.96-9.15); NEUTROPHILS PERCENT AUTO 83 % (41-73); Platelet Count 187 K/mm3 (150-400); RDW Coefficient Variation 14.4 % (11.7-14.2); RDW Standard Deviation 48.8 fL (35.1-46.3); Red Blood Cell Count 3.74 M/mm3 (4.30-5.90); White Blood Cell Count 13.65 K/mm3 (4.00-11.30)
--- NOTE | 2020-08-27 16:50 | NUR ---
SHIFT SUMMARY PT AWAKE THIS AM AT START OF SHIFT, WATCHING TV. NO C/O. NO DIALYSIS TODAY. ENGLE TO GRAVITY, PATENT, BUT VERY LITTLE URINE OUTPUT. PT REPORTED THE ENGLE A CHRONIC CATH THAT HE HAD WHILE AT HOME WELL. PT INDEPENDENT TO [facility] FOR BM. PT DECLINED TO WORK WITH P/T EARLIER TODAY HE WANTED TO TAKE A NAP. PT LATER WILLING TO WORK WITH P/T AND LATER O/T. PT SITTING UP TO CHAIR AT THIS TIME WATCHING TV AND DRINKING COFFEE. DENIED NEEDS. CALL LT IN REACH. POSSIBLE D/C TOMORROW.
--- NOTE | 2020-08-27 19:57 | NUR ---
ASSUMED CARE, LESIA IS SLEEPING WITH TV ON. WILL WAIT TO WAKE HIM TILL MEDS ARE DO. CALL LIGHT IS IN REACH.
--- NOTE | 2020-08-27 20:38 | NUR ---
LESIA IS AWAKE. STATE HE IS FEELING BETTER. LUNG SOUNDS ARE CLEAR. DISCUSSED WEANING HIM OFF THE OXYGEN. SATS ARE 91-92 ON 3 LITERS, TURNED HIM DOWN TO 2 LITERS WILL RECHECK IN A LITTLE BIT. DENIES SOB, CHEST PAIN, OR COUGH. ADMINISTERED MEDS. GAVE SNACK. NO OTHER NEEDS NOTED. CALL LIGHT IN REACH.
[2020-08-28 05:33] LABS: BASOPHILS ABSOLUTE AUTO 0.03 K/mm3 (0.00-0.23); BASOPHILS PERCENT AUTO 0 % (0-2); EOSINOPHILS ABSOLUTE AUTO 0.05 K/mm3 (0.00-0.68); EOSINOPHILS PERCENT AUTO 0 % (0-6); Hemoglobin 10.4 g/dL (13.5-17.5); IMMATURE GRAN ABSOLUTE AUTO 0.26 K/mm3 (0.00-0.10); IMMATURE GRAN PERCENT AUTO 1 % (0-1); LYMPHOCYTES PERCENT AUTO 3 % (21-46); MONOCYTES ABSOLUTE AUTO 0.93 K/mm3 (0.16-1.47); MONOCYTES PERCENT AUTO 5 % (4-13); Mean Corpuscular HGB 29.1 pg (26.0-34.0); Mean Corpuscular HGB Conc 31.5 g/dL (31.5-36.5); Mean Corpuscular Volume 92 fL (80-100); Mean Platelet Volume 10.8 fL (9.1-12.4); NEUTROPHILS ABSOLUTE AUTO 17.06 K/mm3 (1.96-9.15); NEUTROPHILS PERCENT AUTO 90 % (41-73); Platelet Count 196 K/mm3 (150-400); RDW Coefficient Variation 14.2 % (11.7-14.2); RDW Standard Deviation 48.3 fL (35.1-46.3); Red Blood Cell Count 3.57 M/mm3 (4.30-5.90); White Blood Cell Count 18.93 K/mm3 (4.00-11.30)
[2020-08-28 06:01] LABS: Albumin, Blood 2.1 g/dL (3.4-5.0); Anion Gap 8 mmol/L (6-16); Blood Urea Nitrogen 69 mg/dL (8-24); Bun/Creatinine Ratio 22.3 (12.0-20.0); CO2, Blood 24 mmol/L (21-32); Calcium, Blood 8.8 mg/dL (8.5-10.1); Chloride, Blood 107 mmol/L (98-108); Creatinine, Blood 3.09 mg/dL (0.60-1.20); Glomerular Filtration Rate 22 (60-); Glucose, Blood 103 mg/dL (70-99); Magnesium, Blood 2.1 mg/dL (1.6-2.4); Phosphorus, Blood 4.2 mg/dL (2.5-4.9); Potassium, Blood 4.2 mmol/L (3.5-5.5); Sodium, Blood 139 mmol/L (136-145)
--- NOTE | 2020-08-28 16:58 | NUR ---
PATIENT IS ALERT AND ORIENTED AND COOPERATIVE WITH CARE. PATIENT IS RECIEVING DIALYSIS AT THIS TIME. THE PATIENT'S BLOOD PRESSURE FELL TO 74/48 WITH A MAP OF [address] JAIME GAVE AN ORDER FOR MIDODRINE 10MG PRN. THE PATIENT'S BP IS NOW 97/60. PATIENT WORKED WITH PT TODAY AND WALKED AROUND HIS ROOM. PATIENT TRANSFERS INDEPENDENTLY TO THE BSC AND CHAIR. PATIENT IS ON 2L O2 VIA NC. WILL CONTINUE TO MONITOR
--- NOTE | 2020-08-28 19:36 | NUR ---
ASSUMED CARE RECEIVED REPORT FROM MARC ORR. ASSUMED CARE OF PT. PT RESTING IN BED, NO S/S ACUTE DISTRESS NOTED. MILITARY EDUCATION COORDINATOR REPORTING BP OF 79/49, PT ASYMPTOMATIC. WILL NOTIFY PROVIDER AND CLARIFY MIDODRINE ORDER IT STATES TO GIVE "DURING DIALYSIS." PT DENIES OTHER NEEDS AT THIS TIME. CALL LIGHT AND POSSESSIONS IN REACH, [facility].
--- NOTE | 2020-08-28 19:40 | NUR ---
THIS RN NOTIFIED YOLANDA LINTON REGARDING PT'S BP. STATED OK TO GIVE PRN MIDODRINE ORDERED ON EMAR. NO OTHER ORDERS RECEIVED AT THIS TIME. CONTINUE TO MONITOR.
[2020-08-29 06:04] LABS: BASOPHILS ABSOLUTE AUTO 0.04 K/mm3 (0.00-0.23); BASOPHILS PERCENT AUTO 0 % (0-2); EOSINOPHILS ABSOLUTE AUTO 0.04 K/mm3 (0.00-0.68); EOSINOPHILS PERCENT AUTO 0 % (0-6); Hematocrit 30.5 % (37.0-53.0); Hemoglobin 9.7 g/dL (13.5-17.5); IMMATURE GRAN ABSOLUTE AUTO 0.18 K/mm3 (0.00-0.10); IMMATURE GRAN PERCENT AUTO 1 % (0-1); LYMPHOCYTES ABSOLUTE AUTO 1.11 K/mm3 (0.84-5.20); LYMPHOCYTES PERCENT AUTO 7 % (21-46); MONOCYTES ABSOLUTE AUTO 0.76 K/mm3 (0.16-1.47); MONOCYTES PERCENT AUTO 5 % (4-13); Mean Corpuscular HGB 29.1 pg (26.0-34.0); Mean Corpuscular HGB Conc 31.8 g/dL (31.5-36.5); Mean Corpuscular Volume 92 fL (80-100); Mean Platelet Volume 10.9 fL (9.1-12.4); NEUTROPHILS ABSOLUTE AUTO 14.52 K/mm3 (1.96-9.15); NEUTROPHILS PERCENT AUTO 87 % (41-73); Platelet Count 196 K/mm3 (150-400); RDW Coefficient Variation 14.3 % (11.7-14.2); RDW Standard Deviation 47.9 fL (35.1-46.3); Red Blood Cell Count 3.33 M/mm3 (4.30-5.90); White Blood Cell Count 16.65 K/mm3 (4.00-11.30)
--- NOTE | 2020-08-29 06:13 | NUR ---
SHIFT SUMMARY PT RESTING COMFORTABLY, NO S/S ACUTE DISTRESS NOTED. WAS MONITORED T/O NIGHT WITH NEEDS MET. VS REVIEWED, BP'S STABLE AT THIS TIME, PT CONTINUES TO BE ASYMPTOMATIC, DENIES DIZZINESS, FEELINGS OF SYNCOPE. UP TO [facility] [place]DEPENDENTLY, 02 SATS DECREASED TO 85% WITH ACTIVITY, INCREASED PT TO 7L THEN DOWN TO 3L, SATS HOLDING AT 94%. PROVIDER NOTIFIED OF INCREASE IN FLOW RATE, NO NEW ORDERS RECEIVED AT THIS TIME; CONTINUE TO MONITOR. PT SLEPT ON AND OFF T/O NIGHT. DENIES PAIN OR NEEDS AT THIS TIME. CALL LIGHT, POSSESSIONS IN REACH, BED IN LOW POSITION. WCTM, REPORT OFF TO ONCOMING RN.
[2020-08-29 06:21] LABS: Albumin, Blood 2.1 g/dL (3.4-5.0); Anion Gap 7 mmol/L (6-16); Blood Urea Nitrogen 55 mg/dL (8-24); Bun/Creatinine Ratio 22.2 (12.0-20.0); CO2, Blood 29 mmol/L (21-32); Calcium, Blood 8.7 mg/dL (8.5-10.1); Chloride, Blood 103 mmol/L (98-108); Creatinine, Blood 2.48 mg/dL (0.60-1.20); Glomerular Filtration Rate 28 (60-); Glucose, Blood 82 mg/dL (70-99); Magnesium, Blood 1.9 mg/dL (1.6-2.4); Phosphorus, Blood 4.5 mg/dL (2.5-4.9); Sodium, Blood 139 mmol/L (136-145)
--- NOTE | 2020-08-29 17:48 | NUR ---
SHIFT SUMMARY. A&OX4, INDEPENDENT TO BSC, PLEASANT AND COOPERATIVE WITH CARE. PT DENIES PAIN, SOB, N/V. PT CONTINUES WITH 2L O2 NC, LUNGS CLEAR, DIM IN BASES. NO DIALYSIS TODAY, PERMCATH DRESSING C/D/I. NO NEW CHANGES OR CONCERNS.
--- NOTE | 2020-08-29 18:18 | NUR ---
BLADDER TRAINING COMPLETED DURING THE DAY, ENGLE D/C'D AT 1700. PT NEVER FELT BLADDER FULLNESS OR NEED TO VOID DURING BLADDER TRAINGING.
[2020-08-30 05:25] LABS: BASOPHILS ABSOLUTE AUTO 0.03 K/mm3 (0.00-0.23); BASOPHILS PERCENT AUTO 0 % (0-2); EOSINOPHILS PERCENT AUTO 0 % (0-6); Hematocrit 30.7 % (37.0-53.0); IMMATURE GRAN ABSOLUTE AUTO 0.16 K/mm3 (0.00-0.10); IMMATURE GRAN PERCENT AUTO 1 % (0-1); LYMPHOCYTES ABSOLUTE AUTO 1.05 K/mm3 (0.84-5.20); LYMPHOCYTES PERCENT AUTO 7 % (21-46); MONOCYTES ABSOLUTE AUTO 0.83 K/mm3 (0.16-1.47); MONOCYTES PERCENT AUTO 5 % (4-13); Mean Corpuscular HGB 29.9 pg (26.0-34.0); Mean Corpuscular HGB Conc 32.6 g/dL (31.5-36.5); Mean Corpuscular Volume 92 fL (80-100); NEUTROPHILS ABSOLUTE AUTO 13.16 K/mm3 (1.96-9.15); NEUTROPHILS PERCENT AUTO 86 % (41-73); Platelet Count 198 K/mm3 (150-400); RDW Coefficient Variation 14.5 % (11.7-14.2); RDW Standard Deviation 48.6 fL (35.1-46.3); Red Blood Cell Count 3.34 M/mm3 (4.30-5.90); White Blood Cell Count 15.23 K/mm3 (4.00-11.30)
[2020-08-30 05:39] LABS: Albumin, Blood 2.2 g/dL (3.4-5.0); Anion Gap 10 mmol/L (6-16); Blood Urea Nitrogen 67 mg/dL (8-24); Bun/Creatinine Ratio 27.9 (12.0-20.0); CO2, Blood 23 mmol/L (21-32); Calcium, Blood 8.5 mg/dL (8.5-10.1); Chloride, Blood 109 mmol/L (98-108); Glomerular Filtration Rate 30 (60-); Glucose, Blood 85 mg/dL (70-99); Magnesium, Blood 1.9 mg/dL (1.6-2.4); Phosphorus, Blood 3.9 mg/dL (2.5-4.9); Potassium, Blood 4.3 mmol/L (3.5-5.5); Sodium, Blood 142 mmol/L (136-145)
--- NOTE | 2020-08-30 06:41 | NUR ---
SHIFT SUMMARY PT IS A 59 Y/O MALE, ADMITTED FOR COVID19. HE IS A&O X 3, FORGETFUL AT TIMES, AND IRRITABLE WITH STAFF. INDEPENDENT TO BSC, 1PA ANY FURTHER. ENGLE WAS DC'D DURING PREVIOUS DAY SHIFT, AND PT HAS HAD URINARY OUTPUT SINCE. NO C/O PAIN, NAUSEA OR SOB. PT IS ON 2L OF O2 VIA NC, SATTING > 90%. BP WAS LOW AT PM VITALS, 92/63. VITAL SIGNS OTHERWISE STABLE. NO ACUTE CHANGES IN PT CONDITION NOTED DURING THE NIGHT. WILL CONTINUE TO MONITOR AND TREAT PER EMAR UNTIL HAND OFF TO DAY SHIFT RN.
--- NOTE | 2020-08-30 18:42 | NUR ---
SHIFT SUMMARY LESIA DENIED PAIN THIS SHIFT. UP TO BS INDEPENDENTLY. CONTINENT, HAD 3BM THIS SHIFT, SOFT AND BROWN, NO LOOSE STOOL. ON 2L OXYGEN AT 95%. HAD CXR. GOOD APPETITE. TOOK PILLS PRESCRIBED. CALL LIGHT IN REACH, WCTM
[2020-08-31 05:57] LABS: Albumin, Blood 2.4 g/dL (3.4-5.0); Anion Gap 7 mmol/L (6-16); Blood Urea Nitrogen 71 mg/dL (8-24); Bun/Creatinine Ratio 28.1 (12.0-20.0); CO2, Blood 25 mmol/L (21-32); Chloride, Blood 111 mmol/L (98-108); Creatinine, Blood 2.53 mg/dL (0.60-1.20); Glomerular Filtration Rate 28 (60-); Glucose, Blood 86 mg/dL (70-99); Potassium, Blood 4.2 mmol/L (3.5-5.5); Sodium, Blood 143 mmol/L (136-145)
[2020-08-31 05:58] LABS: BASOPHILS ABSOLUTE AUTO 0.05 K/mm3 (0.00-0.23); BASOPHILS PERCENT AUTO 0 % (0-2); EOSINOPHILS ABSOLUTE AUTO 0.01 K/mm3 (0.00-0.68); EOSINOPHILS PERCENT AUTO 0 % (0-6); Hematocrit 33.2 % (37.0-53.0); Hemoglobin 10.5 g/dL (13.5-17.5); IMMATURE GRAN ABSOLUTE AUTO 0.21 K/mm3 (0.00-0.10); IMMATURE GRAN PERCENT AUTO 1 % (0-1); LYMPHOCYTES ABSOLUTE AUTO 1.21 K/mm3 (0.84-5.20); LYMPHOCYTES PERCENT AUTO 8 % (21-46); MONOCYTES ABSOLUTE AUTO 1.11 K/mm3 (0.16-1.47); MONOCYTES PERCENT AUTO 7 % (4-13); Mean Corpuscular HGB 29.7 pg (26.0-34.0); Mean Corpuscular HGB Conc 31.6 g/dL (31.5-36.5); Mean Corpuscular Volume 94 fL (80-100); Mean Platelet Volume 11.2 fL (9.1-12.4); NEUTROPHILS ABSOLUTE AUTO 12.98 K/mm3 (1.96-9.15); NEUTROPHILS PERCENT AUTO 83 % (41-73); Platelet Count 204 K/mm3 (150-400); RDW Coefficient Variation 14.5 % (11.7-14.2); RDW Standard Deviation 50.3 fL (35.1-46.3); Red Blood Cell Count 3.54 M/mm3 (4.30-5.90); White Blood Cell Count 15.57 K/mm3 (4.00-11.30)
--- NOTE | 2020-08-31 06:18 | NUR ---
SHIFT SUMMARY PT IS A 59 Y/O MALE, ADMITTED FOR COVID-19. HE IS A&O X 3, IRRITABLE AT TIMES WITH CARE. INDEPENDENT TO BS, 1PA C FWW FOR AMBULATION. PT REPORTED NEW ONSET RECTAL BLEEDING THIS AM, WITH BRIGHT RED BLOOD NOTED ON TOILET PAPER. PT HAD A SIMILAR INSTANCE OF BLEEDING ON ADMISSION, WHICH RESOLVED ITSELF. HOSPITALIST DR MAR NOTIFIED, NO CHANGES IN ORDERS. H&H REMAINED STABLE PER LABS. PT IS ON 2L OF O2 VIA NC. BP AT HS LOW IN THE 90S SYSTOLIC, BUT OTHERWISE VITAL SIGNS STABLE. NO COMPLAINTS OF PAIN OR NAUSEA, THOUGH DYSPNEA WITH EXERTION NOTED. NO OTHER ACUTE CHANGES IN PT CONDITION NOTED. WILL CONTINUE TO MONITOR AND TREAT PER EMAR UNTIL HAND OFF TO DAY SHIFT RN.
--- NOTE | 2020-08-31 11:50 | NUR ---
SPOKE WITH DR. JAIME THIS AM ABOUT PT. IF PT DISCHARGES TODAY 08/31/20 HE WILL NEED AN APPOINTMENT AT [facility] FOR DIALYSIS TOMORROW 09/01/20.
[2020-08-31] MEDS ORDERED: ACET325 PO (14:17)
[2020-08-31] MEDS ORDERED: Ventolin/Prove6.7 GM INH (14:22)
[2020-08-31] MEDS ORDERED: TAMS.4ER PO (14:23)
[2020-08-31] MEDS ORDERED: MIDODRINE HCL10 MG PO (14:23)
[2020-08-31] MEDS ORDERED: CEPH500 PO (14:24)
[2020-08-31] MEDS ORDERED: PROBIOTIC PO (14:24)
[2020-08-31] MEDS ORDERED: METPRE4DP PO (14:26)
--- NOTE | 2020-08-31 16:58 | NUR ---
SHIFT SUMMARY PT A/O X4; PLEASANT AND COOPERATIVE WITH CARE. PT DC'D HOME TODAY. SET UP AN APPOINTMENT WITH [facility] FOR DIALYSIS TOMORROW AT 1820. [facility] ALSO NOTIFIED AND HAD HOME O2 ARRANGED AND DELIVERED TO THE PT HOME. PT TRANSPORTED HOME BY [facility]. CALLS WERE MADE TO ARRANGE A RIDE HOME WITH HIS BUT HIS WAS UNABLE TO CLOTH WASHER THE PT. POWERGLKHOA DC'D WNL. HOME O2 EVAL DONE. VSS.
== END 2020-08-31 16:53 | disposition home health service (06) | DRG 871 ==
LOC: ER 06:38 → PCU 06:39 → MEDS 08-24 15:25
PROVIDERS: Emergency Medicine; Family Medicine; Internal Medicine; Internal Medicine Critical Care Medicine; Internal Medicine Nephrology; Nurse Practitioner Acute Care; ADMIT Internal Medicine
PROC: 3E0333Z Introduction of Anti-inflammatory into Peripheral Vein, Percutaneous Approach (ICD-10-PCS; principal; 2020-08-13)
PROC: 5A1D70Z Performance of Urinary Filtration, Intermittent, Less than 6 Hours Per Day (ICD-10-PCS; 2020-08-19)
DX: A41.89 Other specified sepsis (principal); U07.1 COVID-19; J12.89 Other viral pneumonia; J96.01 Acute respiratory failure with hypoxia; N18.6 End stage renal disease; T83.511A Infection and inflammatory reaction due to indwelling urethral catheter, initial encounter; I13.2 Hypertensive heart and chronic kidney disease with heart failure and with stage 5 chronic kidney disease, or end stage renal disease; D61.818 Other pancytopenia; E87.1 Hypo-osmolality and hyponatremia; I48.92 Unspecified atrial flutter; K92.2 Gastrointestinal hemorrhage, unspecified; E44.0 Moderate protein-calorie malnutrition; N39.0 Urinary tract infection, site not specified; I50.9 Heart failure, unspecified; Z99.2 Dependence on renal dialysis; I48.0 Paroxysmal atrial fibrillation; Z86.73 Personal history of transient ischemic attack (TIA), and cerebral infarction without residual deficits; E78.5 Hyperlipidemia, unspecified; Z87.891 Personal history of nicotine dependence; T45.515A Adverse effect of anticoagulants, initial encounter; B96.81 Helicobacter pylori [H. pylori] as the cause of diseases classified elsewhere; K29.70 Gastritis, unspecified, without bleeding; D63.1 Anemia in chronic kidney disease; F17.210 Nicotine dependence, cigarettes, uncomplicated
CPT/HCPCS: 0241U; 36415; 36600; 51701; 51702; 71045; 80048; 80053; 80069; 80162; 81001; 82272; 82803; 83605; 83690; 83735; 84100; 84145; 85014; 85018; 85025; 85610; 85730; 86850; 86900; 86901; 87040; 87077; 87086; 87186; 87340; 93005; 93010; 94640; 94760; 94761; 94762; 96365-59; 96366; 96367; 96372; 96375; 97110; 97162; 97165; 97530; 99285-25; A9270; A9270-GY; C1751; C9113; G0378; J0456; J0696; J0881; J1100; J1160; J1644; J1940; J3370; J7030; J7040; J7050

== ENCOUNTER 2021-04-06 08:56 | Day surgery (SDC) | payer OTHER ==
[~2021-04-06] VITALS: Ht 180.3 cm; Wt 78.6 kg
[~2021-04-06 08:56] MED LIST changes: +CEPH500 PO; +METPRE4DP PO; +MIDODRINE HCL10 MG PO; +PROBIOTIC PO; +TAMS.4ER PO; +Ventolin/Prove6.7 GM INH
--- NOTE | 2021-04-06 12:06 | NUR ---
04/06/21 1206 Corina Felder (Cassie APPROX 1202 DR. MIMS ADMINISTERED 50MCG EPHEDRINE IM LEFT DELTOID D/T HYPERTENSION. PT DENIES LIGHTHEADEDNESS, DIZZINESS, PAIN OR ANY OTHER SYMPTOMS. PT RESTING COMFORTABLY IN BED, DRINKING COFFEE. WILL CONTINUE TO MONITOR FOR [address] MIMS'S ORDERS.
== END 2021-04-06 12:40 | disposition home or self-care (01) ==
LOC: ORSCSDS 08:56
PROVIDERS: Student in an Organized Health Care Education/Training Program
PROC: 0DBN8ZX Excision of Sigmoid Colon, Via Natural or Artificial Opening Endoscopic, Diagnostic (ICD-10-PCS; principal; 2021-04-06 10:30)
PROC: 0DBP8ZX Excision of Rectum, Via Natural or Artificial Opening Endoscopic, Diagnostic (ICD-10-PCS; principal; 2021-04-06 10:30)
PROC: 0DBM8ZX Excision of Descending Colon, Via Natural or Artificial Opening Endoscopic, Diagnostic (ICD-10-PCS; principal; 2021-04-06 10:30)
PROC: 0DB78ZX Excision of Stomach, Pylorus, Via Natural or Artificial Opening Endoscopic, Diagnostic (ICD-10-PCS; principal; 2021-04-06 10:30)
PROC: 0DBK8ZX Excision of Ascending Colon, Via Natural or Artificial Opening Endoscopic, Diagnostic (ICD-10-PCS; principal; 2021-04-06 10:30)
PROC: 0DBL8ZX Excision of Transverse Colon, Via Natural or Artificial Opening Endoscopic, Diagnostic (ICD-10-PCS; principal; 2021-04-06 10:30)
PROC: 0DBH8ZX Excision of Cecum, Via Natural or Artificial Opening Endoscopic, Diagnostic (ICD-10-PCS; principal; 2021-04-06 10:30)
DX: R19.5 Other fecal abnormalities (principal); K27.9 Peptic ulcer, site unspecified, unspecified as acute or chronic, without hemorrhage or perforation; D12.2 Benign neoplasm of ascending colon; D12.0 Benign neoplasm of cecum; D12.3 Benign neoplasm of transverse colon; D12.4 Benign neoplasm of descending colon; D12.5 Benign neoplasm of sigmoid colon; K62.1 Rectal polyp; K44.9 Diaphragmatic hernia without obstruction or gangrene; K29.70 Gastritis, unspecified, without bleeding; K64.8 Other hemorrhoids; I10 Essential (primary) hypertension; Z87.891 Personal history of nicotine dependence; N18.6 End stage renal disease; Z99.2 Dependence on renal dialysis; I48.91 Unspecified atrial fibrillation; E78.5 Hyperlipidemia, unspecified; J45.909 Unspecified asthma, uncomplicated; Z79.899 Other long term (current) drug therapy
CPT/HCPCS: 84132; 88305; 88342; J0330; J0461; J2001; J2250; J2370; J2405; J2704; J7030; J7120

== ENCOUNTER 2021-10-05 10:40 | Day surgery (SDC) | payer MEDICARE, OTHER ==
[~2021-10-05] VITALS: Ht 177.8 cm; Wt 77.1 kg
[2021-10-05] MEDS ORDERED: RENAL VITAMIN0.8 MG PO (11:29)
--- NOTE | 2021-10-05 16:50 | NUR ---
PD CATH DRAINED 50 CC'S PINK COLORED DRAINAGE.
--- NOTE | 2021-10-05 16:56 | NUR ---
PT GETTING UP AND DRESSED. SALINE LOCK REMOVED WITH CATHETER INTACT.
--- NOTE | 2021-10-05 17:01 | NUR ---
DISCHARGE INSTRUCTIONS REVIEWED WITH PT, VERBALIZES UNDERSTANDING OF INSTRUCTIONS. PT TO PRIVATE VEHICLE PER W/C.
== END 2021-10-05 17:05 | disposition home or self-care (01) ==
LOC: MHTC 10:40
DX: N18.6 End stage renal disease (principal)
CPT/HCPCS: 49418; 76937; 76998; 99152; 99153; C1750; C1769; C1894; J1644; J2250; J3010; J7030; J7040; Q9967

== ENCOUNTER 2021-12-26 11:41 | Emergency (ER) | payer MEDICARE, OTHER ==
[~2021-12-26] VITALS: Ht 180.3 cm; Wt 72.6 kg
[~2021-12-26 11:41] MED LIST changes: +RENAL VITAMIN0.8 MG PO
[2021-12-26 16:38] LABS: BASOPHILS ABSOLUTE AUTO 0.07 K/mm3 (0.00-0.23); BASOPHILS PERCENT AUTO 1 % (0-2); EOSINOPHILS ABSOLUTE AUTO 0.18 K/mm3 (0.00-0.68); EOSINOPHILS PERCENT AUTO 2 % (0-6); Hemoglobin 12.3 g/dL (13.5-17.5); IMMATURE GRAN PERCENT AUTO 1 % (0-1); LYMPHOCYTES ABSOLUTE AUTO 2.08 K/mm3 (0.84-5.20); LYMPHOCYTES PERCENT AUTO 23 % (21-46); MONOCYTES ABSOLUTE AUTO 1.09 K/mm3 (0.16-1.47); MONOCYTES PERCENT AUTO 12 % (4-13); Mean Corpuscular HGB 33.4 pg (26.0-34.0); Mean Corpuscular HGB Conc 32.4 g/dL (31.5-36.5); Mean Corpuscular Volume 103 fL (80-100); Mean Platelet Volume 11.1 fL (9.1-12.4); NEUTROPHILS ABSOLUTE AUTO 5.57 K/mm3 (1.96-9.15); NEUTROPHILS PERCENT AUTO 61 % (41-73); Platelet Count 164 K/mm3 (150-400); RDW Standard Deviation 52.7 fL (35.1-46.3); Red Blood Cell Count 3.68 M/mm3 (4.30-5.90); White Blood Cell Count 9.09 K/mm3 (4.00-11.30)
[2021-12-26 17:06] LABS: Albumin, Blood 3.4 g/dL (3.4-5.0); Bilirubin, Total 0.4 mg/dL (0.1-1.0); Bun/Creatinine Ratio 6.2 (12.0-20.0); Calcium, Blood 9.2 mg/dL (8.5-10.1); Creatinine, Blood 6.73 mg/dL (0.60-1.20); Globulin, Blood 3.3 g/dL (2.2-4.0); Potassium, Blood 4.5 mmol/L (3.5-5.5); Total Protein, Blood 6.7 g/dL (6.4-8.2)
== END 2021-12-26 18:38 | disposition home or self-care (01) ==
LOC: ER 11:41
PROVIDERS: Student in an Organized Health Care Education/Training Program
DX: T82.43XA Leakage of vascular dialysis catheter, initial encounter (principal); N19 Unspecified kidney failure; Z88.0 Allergy status to penicillin
CPT/HCPCS: 71045; 80053; 85025; 99284-25

== ENCOUNTER 2022-02-01 06:34 | Day surgery (SDC) | payer MEDICARE, OTHER ==
[~2022-02-01] VITALS: Ht 180.3 cm; Wt 71.8 kg
[2022-02-01] MEDS ORDERED: DOCU100 PO (07:37)
[2022-02-01] MEDS ORDERED: ACIDOPHILUS1 EAC3 PO (07:37)
[2022-02-01 08:01] LABS: Hematocrit 35.6 % (37.0-53.0); Hemoglobin 11.8 g/dL (13.5-17.5); Mean Corpuscular HGB 33.1 pg (26.0-34.0); Mean Corpuscular HGB Conc 33.1 g/dL (31.5-36.5); Mean Corpuscular Volume 100 fL (80-100); Platelet Count 198 K/mm3 (150-400); RDW Coefficient Variation 13.8 % (11.7-14.2); RDW Standard Deviation 51.1 fL (35.1-46.3); Red Blood Cell Count 3.56 M/mm3 (4.30-5.90); White Blood Cell Count 12.64 K/mm3 (4.00-11.30)
[2022-02-01 08:15] LABS: International Normalized Ratio 0.94; Prothrombin Time Results 9.9 Sec (9.7-11.5)
[2022-02-01 09:17] LABS: Calcium, Blood 9.5 mg/dL (8.5-10.1); Potassium, Blood 3.9 mmol/L (3.5-5.5)
[2022-02-01 09:26] LABS: Bun/Creatinine Ratio 6.3 (12.0-20.0); Creatinine, Blood 9.26 mg/dL (0.60-1.20)
--- NOTE | 2022-02-01 10:02 | NUR ---
PT RETURNED TO RECOVERY ROOM IN BED. PD SITE SOFT WITH NO HEMATOM, NO BLEEDING AND INTACT DRESSING. REPROTED 1250 CC OF WARMED IV FLUID INSUFUSED THROUGH PD CATHETER DURING CASE; 600 CC REMOVED AND PD CATHETER TUBE CONNECTION PLACED.
--- NOTE | 2022-02-01 10:08 | NUR ---
PT DENIES ABDOMINAL PAIN.
--- NOTE | 2022-02-01 11:48 | NUR ---
DISCHARGE INSTRUCTIONS WERE REVIEWED AND ALL QUESTIONS ANSWERED. NO CHANGES TO PD SITE. 20 G IV DISCONTINUED FROM LEFT WRIST WITH INTACT CANNULA. PT ESCORTED OUT VIA WHEELCHAIR ESCORT.
== END 2022-02-01 11:30 | disposition home or self-care (01) ==
LOC: MHTC 06:34
PROVIDERS: Nurse Practitioner Women's Health
DX: T85.611A Breakdown (mechanical) of intraperitoneal dialysis catheter, initial encounter (principal); N18.6 End stage renal disease; Z88.0 Allergy status to penicillin; Y73.2 Prosthetic and other implants, materials and accessory gastroenterology and urology devices associated with adverse incidents
CPT/HCPCS: 49418; 49422; 80048; 85027; 85610; 93005; 93010; C1750; C1757; C1769; C1887; C1894; J0690; J1100; J1644; J2250; J2370; J2405; J2704; J3010; J7030; J7040

== ENCOUNTER 2023-01-10 08:22 | Observation (INO) | payer MEDICARE, OTHER ==
[~2023-01-10] VITALS: Ht 175.3 cm; Wt 74.0 kg
[~2023-01-10 08:22] MED LIST changes: +ACIDOPHILUS1 EAC3 PO; +DOCU100 PO
[2023-01-10] MEDS ORDERED: TAMSULOSIN HCL0.4 M1 PO (08:32)
[2023-01-10] MEDS ORDERED: CALCIUM ACETAT667 M2 PO (08:32)
[2023-01-10] MEDS ORDERED: AURYXIA210 MG PO (08:33)
[2023-01-10 09:35] LABS: BASOPHILS ABSOLUTE AUTO 0.09 K/mm3 (0.00-0.23); BASOPHILS PERCENT AUTO 1 % (0-2); EOSINOPHILS ABSOLUTE AUTO 0.15 K/mm3 (0.00-0.68); EOSINOPHILS PERCENT AUTO 2 % (0-6); Hematocrit 25.1 % (37.0-53.0); IMMATURE GRAN ABSOLUTE AUTO 0.02 K/mm3 (0.00-0.10); IMMATURE GRAN PERCENT AUTO 0 % (0-1); LYMPHOCYTES ABSOLUTE AUTO 1.32 K/mm3 (0.84-5.20); LYMPHOCYTES PERCENT AUTO 17 % (21-46); MONOCYTES ABSOLUTE AUTO 1.09 K/mm3 (0.16-1.47); MONOCYTES PERCENT AUTO 14 % (4-13); Mean Corpuscular HGB Conc 31.9 g/dL (31.5-36.5); Mean Corpuscular Volume 97 fL (80-100); Mean Platelet Volume 11.5 fL (9.1-12.4); NEUTROPHILS ABSOLUTE AUTO 5.18 K/mm3 (1.96-9.15); NEUTROPHILS PERCENT AUTO 66 % (41-73); Platelet Count 229 K/mm3 (150-400); RDW Coefficient Variation 13.9 % (11.7-14.2); RDW Standard Deviation 49.2 fL (35.1-46.3); Red Blood Cell Count 2.58 M/mm3 (4.30-5.90); White Blood Cell Count 7.85 K/mm3 (4.00-11.30)
[2023-01-10 09:59] LABS: Magnesium, Blood 2.5 mg/dL (1.6-2.4)
[2023-01-10 10:09] LABS: Albumin, Blood 3.6 g/dL (3.4-5.0); Bilirubin, Total 0.6 mg/dL (0.1-1.0); Bun/Creatinine Ratio 5.2 (12.0-20.0); Calcium, Blood 9.8 mg/dL (8.5-10.1); Creatinine, Blood 11.8 mg/dL (0.60-1.20); Globulin, Blood 3.5 g/dL (2.2-4.0); Potassium, Blood 5.6 mmol/L (3.5-5.5); Total Protein, Blood 7.1 g/dL (6.4-8.2)
[2023-01-10 12:17] VITALS: BP 146/62
[2023-01-10 14:44] LABS: Bun/Creatinine Ratio 4.9 (12.0-20.0); Calcium, Blood 9.8 mg/dL (8.5-10.1); Creatinine, Blood 12.4 mg/dL (0.60-1.20); Potassium, Blood 4.6 mmol/L (3.5-5.5)
--- NOTE | 2023-01-10 15:03 | NUR ---
Upon receiving a referral for spiritual care, I visited the patient. He tells me he is doing ok and has "been worse." He talks about his family and that he feels support by them. He explains about the cathiter has come out and that it was discouraging (mostly for his ). He requests prayer for her but as I begin to pray to God he corrects me and says, "Romie." So I frame my prayer to fit a more Sikh tradition and conclude with the name Romie." Patient responded well to uplifting conversation and prayer and showed signs of increased hope in challenging times.
--- NOTE | 2023-01-10 15:09 | NUR ---
ARRIVAL TO PCU/SHIFT SUMMARY/TRANSFER OF CARE The patient arrived from ED at 1217. vital signs stable. patient is alert and oriented x4. patient is complusive and quick in movement. bed alarm is on and patient is instructed to use call light. patient oriented to the room. patient is a stand by assist for safety. patient is able to make needs known. patient reports no pain, chest pain/pressure, or shortness of breath and has remained free from any of these symptoms. see admission assessment for further detials. Tele is sinus tach 101. Plan of care is up to date. Plan is for Shankar to see patient in the AM to do a dialysis cath placement. Nephrology consulted. report to shraddha TRAN.
--- NOTE | 2023-01-10 15:10 | NUR ---
ASSUMED CARE OF PT FROM THAN[facility] TRAN.
[2023-01-10 17:05] VITALS: BP 130/68
--- NOTE | 2023-01-10 17:47 | NUR ---
SHIFT SUMMARY NO ACUTE CHANGES SINCE ASSUMING CARE OF PT. DR JAIME IN ROOM TO SEE PT, NEW ORDERS RECEIVED. PLAN FOR NPO@MN, PD CATH REMOVAL AND HD CATH REPLACEMENT TOMORROW WITH DR ADRIAN. PT ABLE TO USE CALL LIGHT FOR NEEDS, CALL LIGHT IN REACH, WILL CONTINUE TO MONITOR AND GIVE REPORT TO NOC SHIFT RN.
[2023-01-10 19:59] VITALS: BP 150/75
[2023-01-10 23:20] LABS: Bun/Creatinine Ratio 5.5 (12.0-20.0); Calcium, Blood 9.1 mg/dL (8.5-10.1); Potassium, Blood 5.7 mmol/L (3.5-5.5)
[2023-01-10 23:28] VITALS: BP 148/73
[2023-01-11] VITALS (19 sets, daily range): BP systolic 96–142; BP diastolic 61–92
[2023-01-11 03:49] LABS: BASOPHILS ABSOLUTE AUTO 0.05 K/mm3 (0.00-0.23); BASOPHILS PERCENT AUTO 1 % (0-2); EOSINOPHILS ABSOLUTE AUTO 0.22 K/mm3 (0.00-0.68); EOSINOPHILS PERCENT AUTO 3 % (0-6); Hemoglobin 7.4 g/dL (13.5-17.5); IMMATURE GRAN ABSOLUTE AUTO 0.03 K/mm3 (0.00-0.10); IMMATURE GRAN PERCENT AUTO 0 % (0-1); LYMPHOCYTES ABSOLUTE AUTO 1.62 K/mm3 (0.84-5.20); LYMPHOCYTES PERCENT AUTO 20 % (21-46); MONOCYTES ABSOLUTE AUTO 1.01 K/mm3 (0.16-1.47); MONOCYTES PERCENT AUTO 12 % (4-13); Mean Corpuscular HGB 30.5 pg (26.0-34.0); Mean Corpuscular HGB Conc 30.8 g/dL (31.5-36.5); Mean Corpuscular Volume 99 fL (80-100); Mean Platelet Volume 11.4 fL (9.1-12.4); NEUTROPHILS ABSOLUTE AUTO 5.25 K/mm3 (1.96-9.15); NEUTROPHILS PERCENT AUTO 64 % (41-73); Platelet Count 209 K/mm3 (150-400); RDW Coefficient Variation 13.9 % (11.7-14.2); RDW Standard Deviation 50.6 fL (35.1-46.3); Red Blood Cell Count 2.43 M/mm3 (4.30-5.90); White Blood Cell Count 8.18 K/mm3 (4.00-11.30)
[2023-01-11 04:32] LABS: Magnesium, Blood 2.6 mg/dL (1.6-2.4)
[2023-01-11 04:57] LABS: Albumin, Blood 3.4 g/dL (3.4-5.0); Anion Gap 9 mmol/L (6-16); Blood Urea Nitrogen 72 mg/dL (8-24); Bun/Creatinine Ratio 5.4 (12.0-20.0); CO2, Blood 27 mmol/L (21-32); Calcium, Blood 8.6 mg/dL (8.5-10.1); Chloride, Blood 104 mmol/L (98-108); Glomerular Filtration Rate 4 (60-); Glucose, Blood 118 mg/dL (70-99); Phosphorus, Blood 8.1 mg/dL (2.5-4.9); Potassium, Blood 5.3 mmol/L (3.5-5.5); Sodium, Blood 140 mmol/L (136-145)
--- NOTE | 2023-01-11 05:43 | NUR ---
SHIFT ASSESSMENT PT APPEARS TO BE A&O X3 WHILE AWAKE, FLAT AFFECT, HOWEVER WHEN THE PT SLEEPS HE YELLS OUT RANDOM WORDS, GRUNTS & GROWLS, PT WAS WOKE UP TO ASSESS IF HE WAS FEELING OKAY, HE ASKED "WHY" WHEN I TOLD HIM I HEARD HIM MAKING RANDOM NOISES HE STATED "THAT'S HOW YOU KNOW I'M ALIVE", HE CONTINUED TO MAKE THE RANDOM NOISES/YELLS AGAIN AFTER FALLING ASLEEP. PT DENIES HALLUCINATIONS/PAIN, BED ALARM AND CAMERA ON FOR SAFETY, VSS, ON RA, DRSG'S TO DIALYSIS CATH AREA'S C/D/I, CRITICAL VALUE NOTIFIATION TO THIS AM, CREATININE 13.3 & PHOSPHOROUS OF 8.1. NO NEW ORDERS WERE GIVEN. PT NPO SINCE MIDNIGHT FOR PENDING PROCEDURE, CALL LIGHT IN REACH, WCTM & TREAT UNTIL SHIFT CHNAGE.
--- NOTE | 2023-01-11 09:57 | NUR ---
AM NOTE; PT FOR PERMACATH PLACEMENT THIS AFTERNOON PER DR ADRIAN, THEN DIALYSIS AFTER. PT ALERT AND ORIENTED X3, ABLE TO MAKE NEEDS KNOWN, HAS ODD PERSONALITY, MUMBLES AND TALKS AND MAKE FUNNY NOISE WHEN IN BED OR ASLEEP PT DOESNT SEEM TO BE AWARE EVERY TIME THIS NURSE COMES IN AND CHECK ON THE PT, PT WILL WAKE UP STATING HE'S OKAY. NO OTHER COMPLAINS AT THIS TIME, VITALS HAS BEEN STABLE. PT HAS BEEN INDEPENDENT IN THE ROOM, DRESSING ON RIGHT UPPER CHEST AND PD CATH DRESSING CDI. WILL CONTINUE TO MONITOR
--- NOTE | 2023-01-11 13:52 | NUR ---
PT CURRENTLY TAKEN TO FREIGHT RATE ANALYST FOR PERMACATH PLACEMENT
--- NOTE | 2023-01-11 18:19 | NUR ---
PT SUMMARY: PT HAD NEW PERMACATH PLACED ON LEFT UPPER CHEST WITH DRESSING CDI, NO ISSUES POST PLACEMENT VITALS HAS BEEN STABLE. PT DENIES ANY PAIN/DISCOMFORT. PT EXPRESSING HOW HE'S REALLY WANTING TO LEAVE AND GO HOME PT WAS ENCOURAGED TO STAY UNTIL HE GETS DIALYZED ATLEAST FOR AN HOUR. DR JAIME WAS CALLED AND RECOMMENDED TO HAVE HIM DIALYZED TOG ET FLUID OFF OF HIM. BRINE PLANT OPERATOR RADHA CALLED IN TO COME AND DIALYZE PT. DISCHARGE PAPERS DONE, CALLED AND WAS GIVEN UPDATE ABOUT THE PT ALSO LET THEM KNOWN TO CALL BEFORE 8PM TO MAKE SURE RIDE WAS SET UP. NO OTHER ISSUES AT THIS TIME, WILL REPORT TO ONCOMING SHIFT
--- NOTE | 2023-01-11 21:43 | NUR ---
DISCHARGE PT A&Ox4, COMMUNICATES NEEDS APPROPRIATELY. VSS, DENIES SOB, CP/PRESSURE. DAY SHIFT RN WENT OVER DISCHARGE INSTRUCTIONS WITH PT. PT BELONGINGS GATHERED AND IVs REMOVED. PT TAKEN TO ER ENTRANCE VIA WHEELCHAIR BY CLINICAL STAFF AT APPROXIMATELY 2124.
[2023-01-31] MEDS ORDERED: ACIDOPHILUS1 EAC3 PO (14:26)
[2023-01-31] MEDS ORDERED: ALBU90OI INH (14:27)
[2023-01-31] MEDS ORDERED: OXYC5 PO (14:27)
== END 2023-01-11 21:31 | disposition home or self-care (01) ==
LOC: ER 08:22 → PCU 08:23 → ER 10:31 → PCU 10:31
PROVIDERS: Family Medicine; Student in an Organized Health Care Education/Training Program; ADMIT Hospitalist
DX: T82.42XA Displacement of vascular dialysis catheter, initial encounter (principal); Y71.8 Miscellaneous cardiovascular devices associated with adverse incidents, not elsewhere classified; E87.70 Fluid overload, unspecified; E16.2 Hypoglycemia, unspecified; D64.9 Anemia, unspecified; E87.5 Hyperkalemia; I12.0 Hypertensive chronic kidney disease with stage 5 chronic kidney disease or end stage renal disease; N18.6 End stage renal disease; I48.0 Paroxysmal atrial fibrillation; N40.0 Benign prostatic hyperplasia without lower urinary tract symptoms; E78.5 Hyperlipidemia, unspecified; Z87.891 Personal history of nicotine dependence; Z88.0 Allergy status to penicillin; Z79.899 Other long term (current) drug therapy
CPT/HCPCS: 36415; 36558; 76937; 77001; 80048; 80053; 80069; 82947; 83735; 85025; 93005; 93010; 94644; 94664; 96372; 96374; 96375; 97165; 99152; 99153; 99285-25; A9270; C1750; C1769; C1894; G0257; G0378; J0881; J1644; J1815; J2250; J3010; J7030; J7050; J7799

== ENCOUNTER 2023-02-01 09:02 | Day surgery (SDC) | payer MEDICARE, OTHER ==
[2023-02-01] VITALS (7 sets, daily range): BP systolic 110–139; BP diastolic 68–87
[~2023-02-01] VITALS: Ht 177.8 cm; Wt 72.0 kg
[~2023-02-01 09:02] MED LIST changes: +ALBU90OI INH; +AURYXIA210 MG PO; +CALCIUM ACETAT667 M2 PO; +OXYC5 PO; +TAMSULOSIN HCL0.4 M1 PO
[2023-02-01 10:40] LABS: Hematocrit 28.9 % (37.0-53.0); Hemoglobin 9.1 g/dL (13.5-17.5)
--- NOTE | 2023-02-01 11:16 | NUR ---
PATIENT ARRIVED TO RECOVERY ROOM DROWSY, DENYING ANY PAIN. 2 ABDOMINAL SITES C/D/I. VSS ON ROOM AIR.
--- NOTE | 2023-02-01 12:30 | NUR ---
PATIENT SITTING UPRIGHT IN BED, TOLERATING PO INTAKE WELL, ABDOMINAL SITES C/D/I. DISCHARGE PAPERWORK REVIEWED WITH PATIENT AND SPOUSE. VSS ON ROOM AIR
--- NOTE | 2023-02-01 13:12 | NUR ---
PIV REMOVED WITHOUT DIFFICULTY, CATHETER INTACT. VSS ON ROOM AIR. ABDOMINAL SITES C/D/I.
--- NOTE | 2023-02-01 13:13 | NUR ---
PATIENT DISCHARGED AT THIS TIME. DISCHARGE PAPERWORK AND BELONGINGS LEFT WITH PATIENT. ALL QUESTIONS WERE ANSWERED. VSS ON ROOM AIR. DISCHARGE VOLUNTEER ABLE TO WHEEL PATIENT TO PATIENT ENTRANCE. ABLE TO ARRANGE PATIENT TRANSPORT HOME.
== END 2023-02-01 13:15 | disposition home or self-care (01) ==
LOC: MHTC 09:02
PROVIDERS: Radiology Diagnostic Radiology
PROC: 0WPG03Z Removal of Infusion Device from Peritoneal Cavity, Open Approach (ICD-10-PCS; principal; 2023-02-01)
DX: Z49.02 Encounter for fitting and adjustment of peritoneal dialysis catheter (principal); N18.6 End stage renal disease
CPT/HCPCS: 49422; 85014; 85018; 99152; 99153; J1644; J2250; J3010; J3370; J7030; J7040

== ENCOUNTER 2023-02-12 09:00 | Inpatient (IN) | payer MEDICARE, OTHER ==
[~2023-02-12] VITALS: Ht 180.3 cm; Wt 67.5 kg
[2023-02-12] VITALS (21 sets, daily range): BP systolic 105–191; BP diastolic 63–117
[2023-02-12 10:10] LABS: BASOPHILS ABSOLUTE AUTO 0.07 K/mm3 (0.00-0.23); BASOPHILS PERCENT AUTO 1 % (0-2); EOSINOPHILS ABSOLUTE AUTO 0.05 K/mm3 (0.00-0.68); EOSINOPHILS PERCENT AUTO 0 % (0-6); Hematocrit 39.8 % (37.0-53.0); Hemoglobin 12.4 g/dL (13.5-17.5); IMMATURE GRAN ABSOLUTE AUTO 0.04 K/mm3 (0.00-0.10); IMMATURE GRAN PERCENT AUTO 0 % (0-1); LYMPHOCYTES PERCENT AUTO 7 % (21-46); MONOCYTES ABSOLUTE AUTO 1.53 K/mm3 (0.16-1.47); MONOCYTES PERCENT AUTO 11 % (4-13); Mean Corpuscular HGB 29.7 pg (26.0-34.0); Mean Corpuscular HGB Conc 31.2 g/dL (31.5-36.5); Mean Corpuscular Volume 95 fL (80-100); Mean Platelet Volume 11.7 fL (9.1-12.4); NEUTROPHILS ABSOLUTE AUTO 10.96 K/mm3 (1.96-9.15); NEUTROPHILS PERCENT AUTO 80 % (41-73); Platelet Count 216 K/mm3 (150-400); RDW Standard Deviation 55.8 fL (35.1-46.3); Red Blood Cell Count 4.18 M/mm3 (4.30-5.90); White Blood Cell Count 13.65 K/mm3 (4.00-11.30)
[2023-02-12 10:36] LABS: Albumin, Blood 3.7 g/dL (3.4-5.0); Albumin/Globulin Ratio 0.8 (0.8-1.8); Bilirubin, Total 0.6 mg/dL (0.1-1.0); Bun/Creatinine Ratio 5.5 (12.0-20.0); Calcium, Blood 8.4 mg/dL (8.5-10.1); Creatinine, Blood 10.4 mg/dL (0.60-1.20); Globulin, Blood 4.4 g/dL (2.2-4.0); Potassium, Blood 6.1 mmol/L (3.5-5.5); Total Protein, Blood 8.1 g/dL (6.4-8.2)
[2023-02-12 12:45] LABS: Source, Urine Clean Catch
[2023-02-12 12:48] LABS: Appearance, Urine Clear (Clear); Bilirubin, Urine Neg (Neg); Blood, Urine Neg (Neg); Glucose Qualitative, Urine 2+ (Neg); Ketones, Urine Neg (Neg); Leukocyte Esterase, Urine Neg (Neg); Nitrite, Urine Neg (Neg); Protein, Urine 2+ (Neg); Specific Gravity, Urine 1.015 (1.003-1.022); Urobilinogen, Urine NORM (Normal)
[2023-02-12 12:54] LABS: Color, Urine Pale Yellow (P-Yellow)
[2023-02-12 12:57] LABS: Bacteria Not Seen /hpf; Red Blood Cells, Urine 0-2 /hpf (0-2); White Blood Cells, Urine 0-2 /hpf (0-5)
[2023-02-12 12:58] LABS: Squamous Epithelial Cells Rare /hpf (Few)
[2023-02-12 14:27] LABS: Bun/Creatinine Ratio 5.3 (12.0-20.0); Creatinine, Blood 10.9 mg/dL (0.60-1.20); Potassium, Blood 5.5 mmol/L (3.5-5.5)
--- NOTE | 2023-02-12 17:40 | NUR ---
PT ARRIVED IN THE UNIT FROM [facility] VIA STRETCHER PT WAS ABLE TO STAND AMBULATE AND TRANSFER, REPORT RECEIVED FROM DELONTE TRAN. DIALYSIS MACHINE ALREADY SET UP IN THE ROOM PRIOR TO PT'S ARRIVAL. PT ALERT AND ORIENTED X4, SHORT OF BREATH AND IS TACHYPNEIC 30-40'S RR/MIN. SATS KEPT ABOVE 90% ON 4L OF O2, HRR ST 120'S, SBP 190'S, AFEBRILE. PT CONVERTED TO AFIB RVR 140-180'S WHILE DOING DIALYSIS, METOPROLOL 5MG IV PUSH DONE TWICE 15 MINS IN BETWEEN WITH NO EFFECT, AMIODARONE STARTED, HRR NOW RANGING 130-150'S STILL AFIB, SBP 110-120'S. PT DENIES CHEST PAIN, HAS A MILD CHEST PRESSURE, PT COMPLAINED MOSTLY OF LEG CRAMPS. PT NOW EATING DINNER TOLERATING WELL, DR PORTER CAME BY AGAIN TO ASSESS PT TO START PT ON METOPROLOL SUCC 50MG. CBG WAS AT 62 TO RECHECK IN AN HOUR AFTER EATING DINNER. WAS AT THE BEDSIDE TIL BEFORE DINNER TIME, AWARE OF WHATS GOING ON. HAD 3L OUT OF FLUIDS PER DIALYSIS NURSE. NO OTHER ISSUES RIGHT NOW, PT IN BED FINISHING UP DINNER CALL LIGHTS IN REACH WILL REPORT TO ONCOMING SHIFT
[2023-02-12 19:01] LABS: Anti-Xa UFH, PHA Monitoring <0.10 IU/mL; International Normalized Ratio 0.98; Prothrombin Time Results 10.3 Sec (9.7-11.5)
--- NOTE | 2023-02-12 21:41 | NUR ---
ASSUMPTION OF CARE/PATIENT UPDATE THIS RN ASSUMED CARE OF PATIENT AT 1900. REPORT TAKEN AT BEDSIDE FROM TOMAS RN. PATIENT CONVERTED FROM AFIB TO SR WITH HR 70-80'S AT 191. BP STABLE. SPO2 >92% ON 4L VIA NC. AFEBRILE. PATIENT ALERT AND ORIENTED FULLY AND ABLE TO MAKE NEEDS KNOWN. DENIES CHEST PAIN/PRESSURE. C/O FEELING TIRED. RR 20-26 AT THIS TIME. AMIO AND HEP GTT INFUSING PER EMAR. PERMCATH ON LEFT CHEST C/D/I. DRESSINGS ON ABD WHERE PREVIUS PERITONEAL DIALYSIS WAS PERFORMED C/D/I. PATIENT WITH OLIGURIA AND USING URINAL INDEPEDENTLY. PPP. BS+. SEE ASSESSMENT. BED IN LOWEST POSITION AND CALL LIGHT WITHIN REACH.
[2023-02-13] VITALS (14 sets, daily range): BP systolic 107–141; BP diastolic 71–97
[2023-02-13 01:20] LABS: BASOPHILS ABSOLUTE AUTO 0.05 K/mm3 (0.00-0.23); BASOPHILS PERCENT AUTO 1 % (0-2); EOSINOPHILS ABSOLUTE AUTO 0.08 K/mm3 (0.00-0.68); EOSINOPHILS PERCENT AUTO 1 % (0-6); Hematocrit 29.2 % (37.0-53.0); Hemoglobin 9.4 g/dL (13.5-17.5); IMMATURE GRAN ABSOLUTE AUTO 0.04 K/mm3 (0.00-0.10); IMMATURE GRAN PERCENT AUTO 0 % (0-1); LYMPHOCYTES ABSOLUTE AUTO 1.58 K/mm3 (0.84-5.20); LYMPHOCYTES PERCENT AUTO 16 % (21-46); MONOCYTES ABSOLUTE AUTO 1.11 K/mm3 (0.16-1.47); MONOCYTES PERCENT AUTO 11 % (4-13); Mean Corpuscular HGB 28.8 pg (26.0-34.0); Mean Corpuscular HGB Conc 32.2 g/dL (31.5-36.5); Mean Platelet Volume 11.7 fL (9.1-12.4); NEUTROPHILS ABSOLUTE AUTO 6.93 K/mm3 (1.96-9.15); NEUTROPHILS PERCENT AUTO 71 % (41-73); Platelet Count 184 K/mm3 (150-400); RDW Coefficient Variation 15.9 % (11.7-14.2); Red Blood Cell Count 3.26 M/mm3 (4.30-5.90); White Blood Cell Count 9.79 K/mm3 (4.00-11.30)
[2023-02-13 01:22] LABS: Mean Corpuscular Volume 90 fL (80-100)
[2023-02-13 01:23] LABS: Albumin, Blood 2.9 g/dL (3.4-5.0); Albumin/Globulin Ratio 0.8 (0.8-1.8); Bilirubin, Total 0.8 mg/dL (0.1-1.0); Bun/Creatinine Ratio 5.6 (12.0-20.0); Calcium, Blood 8.3 mg/dL (8.5-10.1); Creatinine, Blood 7.02 mg/dL (0.60-1.20); Globulin, Blood 3.6 g/dL (2.2-4.0); Potassium, Blood 4.6 mmol/L (3.5-5.5); Total Protein, Blood 6.5 g/dL (6.4-8.2)
--- NOTE | 2023-02-13 04:56 | NUR ---
SHIFT SUMMARY PATIENT CONTINUES TO BE IN SR WITH HR 70-80'S. BP STABLE WITH SBP 120-130'S. SPO2 >92% ON 4L VIA NC. AFEBRILE. THIS RN CALLED MD ROGERS REGARDING PATIENT'S HGB DROPPING FROM 12.4 TO 9.4. WITH ORDERS TO REPEAT CBC AT 0500 AND OBTAIN STOOL SAMPLE. NO OVERT SIGNS/SYMPTOMS OF BLEEDING NOTED. VITALS REMAIN STABLE. THIS RN SPOKE WITH PHARMACY REGARDING HEP GTT; WITH ORDERS TO CONTINUE HEPARIN GTT PENDING REPEAT CBC. AMIO GTT INFUSING PER EMAR. PATIENT'S NEURO UNCHANGED AND WNL. CALLING APPROPRIATELY. BED IN LOWEST POSITION AND CALL LIGHT WITHIN REACH. THIS RN WILL CONTINUE TO MONITOR UNTIL SHIFT CHANGE AT 0700.
[2023-02-13 05:40] LABS: BASOPHILS ABSOLUTE AUTO 0.06 K/mm3 (0.00-0.23); BASOPHILS PERCENT AUTO 1 % (0-2); EOSINOPHILS ABSOLUTE AUTO 0.11 K/mm3 (0.00-0.68); EOSINOPHILS PERCENT AUTO 1 % (0-6); Hematocrit 29.5 % (37.0-53.0); Hemoglobin 9.5 g/dL (13.5-17.5); IMMATURE GRAN ABSOLUTE AUTO 0.02 K/mm3 (0.00-0.10); IMMATURE GRAN PERCENT AUTO 0 % (0-1); LYMPHOCYTES ABSOLUTE AUTO 1.08 K/mm3 (0.84-5.20); LYMPHOCYTES PERCENT AUTO 12 % (21-46); MONOCYTES ABSOLUTE AUTO 1.18 K/mm3 (0.16-1.47); MONOCYTES PERCENT AUTO 13 % (4-13); Mean Corpuscular HGB Conc 32.2 g/dL (31.5-36.5); Mean Corpuscular Volume 90 fL (80-100); Mean Platelet Volume 11.7 fL (9.1-12.4); NEUTROPHILS ABSOLUTE AUTO 6.65 K/mm3 (1.96-9.15); NEUTROPHILS PERCENT AUTO 73 % (41-73); Platelet Count 179 K/mm3 (150-400); RDW Coefficient Variation 15.9 % (11.7-14.2); RDW Standard Deviation 51.9 fL (35.1-46.3); Red Blood Cell Count 3.28 M/mm3 (4.30-5.90)
[2023-02-13 12:17] LABS: Stool Occult Blood Guaiac 1 Neg (Neg)
[2023-02-13] MEDS ORDERED: Amiodarone HCl200 MG PO (15:32)
--- NOTE | 2023-02-13 17:35 | NUR ---
PT DISCHARGE TO HOME WITH DISCHARGE ORDERS. PT HAD DIALYSIS THIS MRONIGN, NO ISSUES REPORTED. VITALS HAS BEEN STABLE. PT HAS BEEN ON ROOMAIR SINCE LUNCH TIME. PT DENIES ANY CHEST PAIN/SOB. ECHO WAS NOT DONE TODAY [employer] INTER[employer] ONLY DOING STAT ORDERS, PT WAS SENT HOME WITH A WRITTEN ORDER FOR ECHO. PT TO FOLLOW UP WIHT PCP WITHIN 2 WEEKS PRESCRIPTION SENT TO [facility] IN [place]. NO OTHER ISSUES REPORTED, NIECE PROVIDED TRANSPORTATION FOR THE PT. PERMACATH IN LEFT UPPER CHEST REMAINED CDI. ACCOMPNAIED VIA WHEELCHAIR FOR TRANSPORT.
== END 2023-02-13 16:35 | disposition home or self-care (01) | DRG 640 ==
LOC: ER 09:00 → MEDS 12:02 → PCU 12:02
PROVIDERS: Emergency Medicine; Family Medicine; Student in an Organized Health Care Education/Training Program; ADMIT Internal Medicine
PROC: 5A1D70Z Performance of Urinary Filtration, Intermittent, Less than 6 Hours Per Day (ICD-10-PCS; principal; 2023-02-12)
DX: E87.5 Hyperkalemia (principal); J96.01 Acute respiratory failure with hypoxia; N18.6 End stage renal disease; I12.0 Hypertensive chronic kidney disease with stage 5 chronic kidney disease or end stage renal disease; E46 Unspecified protein-calorie malnutrition; I48.92 Unspecified atrial flutter; R65.10 Systemic inflammatory response syndrome (SIRS) of non-infectious origin without acute organ dysfunction; J81.1 Chronic pulmonary edema; I24.8 Other forms of acute ischemic heart disease; K44.9 Diaphragmatic hernia without obstruction or gangrene; E86.9 Volume depletion, unspecified; Z68.22 Body mass index [BMI] 22.0-22.9, adult; K40.90 Unilateral inguinal hernia, without obstruction or gangrene, not specified as recurrent; I48.0 Paroxysmal atrial fibrillation; D63.1 Anemia in chronic kidney disease; E78.5 Hyperlipidemia, unspecified; E87.1 Hypo-osmolality and hyponatremia; E87.70 Fluid overload, unspecified; N40.0 Benign prostatic hyperplasia without lower urinary tract symptoms; R77.8 Other specified abnormalities of plasma proteins; Z87.891 Personal history of nicotine dependence; Z99.2 Dependence on renal dialysis; Z87.11 Personal history of peptic ulcer disease; Z87.19 Personal history of other diseases of the digestive system; Z98.890 Other specified postprocedural states; Z79.51 Long term (current) use of inhaled steroids; Z79.4 Long term (current) use of insulin; Z86.19 Personal history of other infectious and parasitic diseases; Z86.73 Personal history of transient ischemic attack (TIA), and cerebral infarction without residual deficits; Z79.899 Other long term (current) drug therapy; Z88.0 Allergy status to penicillin; Z88.8 Allergy status to other drugs, medicaments and biological substances; Z91.158 Patient's noncompliance with renal dialysis for other reason
CPT/HCPCS: 71045; 80048; 80053; 81001; 82270; 82947; 83735; 84145; 84443; 84484; 85025; 85520; 85610; 93005; 93010; 94640; 94664; 94762; 96365; 96375; 99285-25; A9270; C1751; J0282; J0360; J0612; J1644; J1815; J7060

== ENCOUNTER 2024-02-29 02:59 | Inpatient (IN) | payer MEDICARE, OTHER ==
[2024-02-29] VITALS (15 sets, daily range): BP systolic 131–172; BP diastolic 69–119
[~2024-02-29] VITALS: Ht 180.3 cm; Wt 69.9 kg
[~2024-02-29 02:59] MED LIST changes: +Amiodarone HCl200 MG PO
[2024-02-29] MEDS ORDERED: Ipratropium/Albuterol SulF 2.5-0.5MG/3 ML Amp INH ONE (03:10)
[2024-02-29] MEDS ORDERED: Albuterol 2.5 MG/3 ML VIAL INH SCH ×2 (03:10→04:55)
[2024-02-29] MEDS ORDERED: MethylPREDNISolone Sod Succ 125 MG Vial IV ONE (03:15)
[2024-02-29 03:38] LABS: Bicarbonate Venous 25.4 mmol/L (24.0-30.0); PCO2 Venous 42.9 mmHg (38-42); pH Blood Venous 7.39 (7.34-7.37)
[2024-02-29 03:39] LABS: Base Excess Venous 1.5 mmol/L
[2024-02-29 04:04] LABS: BASOPHILS ABSOLUTE AUTO 0.07 K/mm3 (0.00-0.23); BASOPHILS PERCENT AUTO 1 % (0-2); EOSINOPHILS ABSOLUTE AUTO 0.14 K/mm3 (0.00-0.68); EOSINOPHILS PERCENT AUTO 1 % (0-6); Hematocrit 32.1 % (37.0-53.0); IMMATURE GRAN ABSOLUTE AUTO 0.05 K/mm3 (0.00-0.10); IMMATURE GRAN PERCENT AUTO 0 % (0-1); LYMPHOCYTES PERCENT AUTO 13 % (21-46); MONOCYTES ABSOLUTE AUTO 1.45 K/mm3 (0.16-1.47); MONOCYTES PERCENT AUTO 12 % (4-13); Mean Corpuscular HGB 31.6 pg (26.0-34.0); Mean Corpuscular HGB Conc 31.2 g/dL (31.5-36.5); Mean Corpuscular Volume 102 fL (80-100); NEUTROPHILS ABSOLUTE AUTO 8.76 K/mm3 (1.96-9.15); NEUTROPHILS PERCENT AUTO 73 % (41-73); Platelet Count 192 K/mm3 (150-400); RDW Coefficient Variation 13.8 % (11.7-14.2); RDW Standard Deviation 51.2 fL (35.1-46.3); Red Blood Cell Count 3.16 M/mm3 (4.30-5.90); White Blood Cell Count 11.97 K/mm3 (4.00-11.30)
[2024-02-29 04:17] LABS: Albumin, Blood 3.7 g/dL (3.4-5.0); Albumin/Globulin Ratio 0.9 (0.8-1.8); Bilirubin, Total 0.7 mg/dL (0.1-1.0); Bun/Creatinine Ratio 6.2 (12.0-20.0); Calcium, Blood 9.1 mg/dL (8.5-10.1); Creatinine, Blood 7.95 mg/dL (0.60-1.20); Globulin, Blood 4.2 g/dL (2.2-4.0); Magnesium, Blood 2.4 mg/dL (1.6-2.4); Potassium, Blood 5.3 mmol/L (3.5-5.5); Total Protein, Blood 7.9 g/dL (6.4-8.2)
[2024-02-29 04:55] LABS: Influenza A, PCR NEGATIVE (NEGATIVE); Influenza B, PCR NEGATIVE (NEGATIVE); Resp Syncytial Virus, PCR NEGATIVE (NEGATIVE); SARS-Cov-2 (COVID-19) PCR, MMC NEGATIVE (NEGATIVE)
[2024-02-29] MEDS ORDERED: Acetaminophen 325 MG TABLET PO PRN (05:45)
[2024-02-29] MEDS ORDERED: HydrALAZINE HCl 20 MG / ML 1ML Vial IV PRN (05:45)
[2024-02-29] MEDS ORDERED: Ondansetron 4 MG TAB PO PRN (05:50)
[2024-02-29 07:58] LABS: Adenovirus Not Detected (NOT DETECT); Bordetella pertussis Not Detected (NOT DETECT); Chlamydophila pneumoniae Not Detected (NOT DETECT); Coronavirus 229E Not Detected (NOT DETECT); Coronavirus HKU1 Not Detected (NOT DETECT); Coronavirus NL63 Not Detected (NOT DETECT); Coronavirus OC43 Not Detected (NOT DETECT); Human Metapneumovirus Not Detected (NOT DETECT); Human Rhinovirus/Enterovirus Not Detected (NOT DETECT); Influenza A/2009-H1 Not Detected (NOT DETECT); Influenza A/H1 Not Detected (NOT DETECT); Influenza A/H3 Not Detected (NOT DETECT); Influenza B Not Detected (NOT DETECT); Mycoplasma pneumoniae Not Detected (NOT DETECT); Parainfluenza Virus 1 Not Detected (NOT DETECT); Parainfluenza Virus 2 Not Detected (NOT DETECT); Parainfluenza Virus 3 Not Detected (NOT DETECT); Parainfluenza Virus 4 Not Detected (NOT DETECT); Respiratory Syncytial Virus Not Detected (NOT DETECT); SARS-Cov-2 (COVID-19), BioFire Not Detected (NOT DETECT)
[2024-02-29] MEDS ORDERED: Midodrine 5 MG Tab PO SCH (09:00)
[2024-02-29] MEDS ORDERED: Azithromycin 500 MG in NS 250 ML IV SCH (09:00)
[2024-02-29] MEDS ORDERED: CefTRIAXone Sodium 1,000 MG in NS 100 ML IV SCH (09:00)
[2024-02-29] MEDS ORDERED: Tamsulosin HCl 0.4 MG Cap PO SCH (09:00)
[2024-02-29] MEDS ORDERED: Heparin Sodium,Porcine 5,000 UNIT/0.5 ML SDV SC SCH (09:00)
[2024-02-29] MEDS ORDERED: Lactobacil 2-S.Thermo-Bifido 1 1 Cap PO SCH (09:00)
[2024-02-29 09:02] LABS: Base Excess Venous 1.8 mmol/L; Bicarbonate Venous 25.8 mmol/L (24.0-30.0); pH Blood Venous 7.42 (7.34-7.37)
[2024-02-29] MEDS ORDERED: Anticoagulant Sod Citrate Soln 3 ML SYR INJ PRN (13:15)
--- NOTE | 2024-02-29 17:25 | NUR ---
PCU ADMIT PT BROUGHT TO PCU-5 BY DERRICK FROM ER @ APPROX 1130. PT A&O X4. SLID OVER FROM NAVINRNEY TO PCU BED. SPO2 > 92% ON BIPAP: 16/7, 30% FIO2. MONITOR SHOWING SR-ST, HR 90s-110. PT PERSONAL CLOTHING REMOVED UPON ARRIVAL TO UNIT W/ DRIED BLOOD NOTED ON BACK OF PT's BOXERS BUT NO SKIN BREAK DOWN NOTED. ELISHA CARE PERFORMED W/ DRIED BLOOD REMOVED FROM PT RECTUM. PT DENYING ANY KNOWN BLEEDING OR PREVIOUS BLEEDING WHEN HE WIPES. DR JAIME INFORMED OF PT ADMIT. DIALYSIS NURSE TO UNIT TO INITIATE DIALYSIS SHORTLY AFTER PT ARRIVAL. DIALYSIS COMPLETED. PT SLEEPING INTERMITTENTLY. PT WAKING TO VERBAL STIMULI, IRRITABLE & RUDE AT TIMES. PT UNABLE TO PROVIDE THOROUGH HEALTH HISTORY. PT UNABLE TO CONFIRM HOME MEDICATIONS. 2 PERSCRIPTIONS CONFIRMED D/T PERSCRIPTION BOTTLES W/ PT. PT REPORTING HAVING A , BUT THEN STATING "BUT SHE'S NOT HERE SO I'M A SINGLE MAN." UPON ADMIT HOME/SOCIAL ASSESSMENT PT REPORTING "VERBALLY MEAN & INSULTING." PT STATING "SHE WAS JUST ACCUSING ME OF BEING [place] ON THE WAY HERE." WHEN PT CALLING TO TALK TO PT PT REFUSING TO TALK TO HER. WHEN PT ASKING NURSE FOR UPDATE, PT STATING "YOU CAN TALK TO HER, BUT TELL HER I WON'T GIVE HER ANY MONEY." PT IRRITABLE & RUDELY REFUSING CBG CHECK PRIOR TO DINNER. PT UP EATING DINNER.
[2024-03-01] VITALS (18 sets, daily range): BP systolic 76–147; BP diastolic 62–108
[2024-03-01 04:37] LABS: BASOPHILS ABSOLUTE AUTO 0.06 K/mm3 (0.00-0.23); BASOPHILS PERCENT AUTO 1 % (0-2); EOSINOPHILS ABSOLUTE AUTO 0.07 K/mm3 (0.00-0.68); EOSINOPHILS PERCENT AUTO 1 % (0-6); Hematocrit 31.2 % (37.0-53.0); Hemoglobin 9.8 g/dL (13.5-17.5); IMMATURE GRAN ABSOLUTE AUTO 0.03 K/mm3 (0.00-0.10); IMMATURE GRAN PERCENT AUTO 0 % (0-1); LYMPHOCYTES ABSOLUTE AUTO 1.33 K/mm3 (0.84-5.20); LYMPHOCYTES PERCENT AUTO 14 % (21-46); MONOCYTES ABSOLUTE AUTO 0.98 K/mm3 (0.16-1.47); MONOCYTES PERCENT AUTO 11 % (4-13); Mean Corpuscular HGB 31.2 pg (26.0-34.0); Mean Corpuscular HGB Conc 31.4 g/dL (31.5-36.5); Mean Corpuscular Volume 99 fL (80-100); NEUTROPHILS PERCENT AUTO 74 % (41-73); Platelet Count 187 K/mm3 (150-400); RDW Coefficient Variation 13.6 % (11.7-14.2); RDW Standard Deviation 49.2 fL (35.1-46.3); Red Blood Cell Count 3.14 M/mm3 (4.30-5.90); White Blood Cell Count 9.37 K/mm3 (4.00-11.30)
[2024-03-01 05:09] LABS: Magnesium, Blood 2.4 mg/dL (1.6-2.4)
--- NOTE | 2024-03-01 05:15 | NUR ---
SHIFT SUMMARY ASSUMED CARE OF PT AT 1900. PT IS A/OX4. HEART SOUNDS REGULAR. LUNG SOUNDS CLEAR. PT WAS ON 2-4L NC DURING THE NOC. PT WOULD DROP O2 WHILE SLEEPING. NO ACUTE EVENTS, SLEPT T/O THE NOC. JAIME TO SEE PT AT 2350 THIS SHIFT. ORDERS IN EMAR.
[2024-03-01 05:29] LABS: Albumin, Blood 3.2 g/dL (3.4-5.0); Albumin/Globulin Ratio 0.8 (0.8-1.8); Bilirubin, Total 0.6 mg/dL (0.1-1.0); Bun/Creatinine Ratio 6.6 (12.0-20.0); Calcium, Blood 8.4 mg/dL (8.5-10.1); Creatinine, Blood 7.6 mg/dL (0.60-1.20); Globulin, Blood 3.8 g/dL (2.2-4.0); Phosphorus, Blood 8.4 mg/dL (2.5-4.9); Potassium, Blood 4.9 mmol/L (3.5-5.5)
[2024-03-01] MEDS ORDERED: Anticoagulant Sod Citrate Soln 3 ML SYR INJ PRN (07:45)
[2024-03-01] MEDS ORDERED: Calcium Acetate 667 MG Gel Cap PO SCH (08:30)
--- NOTE | 2024-03-01 10:45 | NUR ---
[employer] [facility] NOTIFIED THIS NURSE THAT THE PATIENTS HEART RATE INCREASED BETWEEN 130-150'S BPM, WHICH THE PATIENT HAS NOT HAD THAT HIGH OF A HEART RATE SINCE BEING ON TELE. THIS NURSE WENT TO CHECK ON THE PATIENT WHO WAS STILL IN DIALYSIS. PATIENT WAS LAYING IN BED AND WAS AWAKE AND ALERT. PATIENT DENIED CHEST PAIN OR PALPATATIONS. THIS NURSE CAME BACK TO THE FLOOR AND DR. BARAJAS WAS ROUNDING ON HER PATIENTS. THIS NURSE NOTIFIED DR. BARAJAS ON THE SITUATION ON THE PATIENT. DR. BARAJAS ORDERED FOR 5MG IV METOPROLOL TO BE GIVEN NOW AND SHE WOULD ASSESS THE PATIENT. PATIENT IS BACK IN HIS ROOM FROM DIALYSIS AND IS LAYING IN BED WITH CALL LIGHT IN REACH.
[2024-03-01] MEDS ORDERED: Metoprolol Tartrate 1 MG/ML 5 ML VIAL IV ONE (10:50)
--- NOTE | 2024-03-01 11:39 | NUR ---
THIS NURSE CALLED DR. BARAJAS TO REPORT PATIENTS HR IS STILL SUSTAINING IN THE 130-140'S BPM AFTER HE WAS GIVEN THE IV METOPROLOL. DR. BARAJAS STATED SHE WOULD PLACE NEW ORDERS SHORTLY. PATIENT DENIES CHEST PAIN, PALPATATIONS, OR PRESSURE AT THIS TIME. HE IS LAYING IN BED WITH CALL LIGHT IN REACH.
[2024-03-01] MEDS ORDERED: Digoxin 0.25 MG/ML 2ML Amp IV ONE (11:45)
--- NOTE | 2024-03-01 13:26 | NUR ---
THIS NURSE NOTIFIED DR. BARAJAS THAT THE PATIENTS HR CONTINUES TO RANGE BETWEEN 130-140 BPM IN ATRIAL FLUTTER EVEN AFTER HE RECIEVED THE IV DIGOXIN PER EMAR. DR. BARAJAS STATED SHE WOULD PLACE NEW ORDERS SHORTLY. PATIENT IS CURRENTLY LAYING IN BED WATCHING TV WITH CALL LIGHT IN REACH. HE DENIES SHORTNESS OF BREATH, CHEST PAIN, PRESSURE OR PALPATATIONS AT THIS TIME.
--- NOTE | 2024-03-01 15:26 | NUR ---
SHIFT SUMMARY: PATIENT IS A&OX4. PATIENTS RHYTHM CHANGED AT THE END OF DIALYSIS FROM SINUS RHYTHM @ 99 BPM TO ATRIAL FLUTTER BETWEEN 120-140 BPM (SEE PREVIOUS NURSES NOTES). PATIENT CONTINUES TO DENY CHEST PAIN, PRESSURE, OR PALPATATIONS. PATIENT WAS GIVEN A BOLUS OF AMIODARONE WELL PLACED ON A AMIODARONE GTT TO MANAGE PATIENTS HR (SEE EMAR). WHEN PATIENT IS AWAKE HE IS ON RA WITH >90% OXYGEN SATS. WHEN PATIENT IS ASLEEP HE DESATS BETWEEN 84-88% OXYGEN SATS IF ONLY ON RA, BUT WHEN PLACED ON 2-4L NC HAS >90% OXYGEN SATS. HE IS TOLERATING PO INTAKE AND IS VOIDING. PATIENT IS CURRENTLY LAYING IN BED WATCHING TV WITH CALL LIGHT IN REACH.
[2024-03-01] MEDS ORDERED: Darbepoetin Alfa in Polysorbat 25 MCG/0.42 ML Syringe SC SCH (16:00)
[2024-03-02] VITALS (23 sets, daily range): BP systolic 107–176; BP diastolic 68–107
[2024-03-02 04:10] LABS: Hemoglobin 9.8 g/dL (13.5-17.5)
[2024-03-02 04:28] LABS: Albumin, Blood 3.2 g/dL (3.4-5.0); Anion Gap 12 mmol/L (3-11); Blood Urea Nitrogen 49 mg/dL (8-24); Bun/Creatinine Ratio 6.8 (12.0-20.0); CO2, Blood 28 mmol/L (21-32); Calcium, Blood 9.4 mg/dL (8.5-10.1); Chloride, Blood 104 mmol/L (98-108); Creatinine, Blood 7.22 mg/dL (0.60-1.20); Glomerular Filtration Rate 8 (60-); Glucose, Blood 110 mg/dL (70-99); Phosphorus, Blood 6.2 mg/dL (2.5-4.9); Potassium, Blood 4.9 mmol/L (3.5-5.5); Sodium, Blood 139 mmol/L (136-145)
--- NOTE | 2024-03-02 05:28 | NUR ---
SHIFT SUMMARY ASSUMED CARE OF PT AT 1900. PT IS A/OX4. HEART SOUNDS REGULAR. PT HR WAS 110S AT START OF SHIFT BUT DECREASED TO 80S T/O THE NOC. LUNG SOUNDS CLEAR. PT REMAINED ON 2L NC, PT UNABLE TO TOLERATE NC OFF. PT USED URINAL AT BEDSIDE. PT HAD NO NEW COMPLAINTS AND WAS VERY PLEASANT TOWARDS STAFF.
--- NOTE | 2024-03-02 12:08 | NUR ---
[employer] NOTIFIED THIS RN AT 1155 THAT PT HAS CONVERTED TO AFLUTTER WITH A RATE IN THE 120'S. THIS RN NOTIFIED MD AT 1158 OF PT'S CONVERSION.
[2024-03-02 13:00] LABS: International Normalized Ratio 0.93
--- NOTE | 2024-03-02 13:13 | NUR ---
LAB ARRIVED TO PT ROOM TO DRAW BLOOD. PT ASKED THIS RN WHAT THE BLOOD DRAW WAS FOR. PT INFORMED THAT PHARMACY IS NEEDING PT, PTT, AND INR FOR WARFARIN. PT STATED "I DON'T WANT ANY OF THOSE BLOOD THINNERS." THIS RN EDUCATED PT ON RISK AND BENEFITS OF BLOOD THINNERS, PT CONTINUES TO ENDORSE THAT HE DOES NT WANT ANY BLOOD THINNERS. MD NOTIFED OF CONVERSATION WITH PT.
--- NOTE | 2024-03-02 15:06 | NUR ---
AMIO GTT STOPPED AT 1400.
--- NOTE | 2024-03-02 18:03 | NUR ---
SHIFT SUMMARY PT A/OX4 AND COOPERATIVE OF CARE. PT DID EXPRESS THAT HE DID NOT WANT TO RECIEVE BLOOD THINNERS, NOTIFIED. PT ABLE TO EXPRESS NEEDS AND CALLED [facility]. PT WAS SR THIS MORNING AND CONVERTED TO AFLUTTER WHILE IN DIALYSIS, MD WAS NOTIFIED AND PT ASYMPTOMATIC. AMIO GTT WAS RUNNING FOR ROUGHLY HALF OF SHIFT PER ORDER. PT'S OTHER VSS THROUGHOUT SHIFT. NO REPORT OF CHEST PAIN/PRESSURE. NO REPORT OF SOB/DYSPNEA. PT WAS DOWN TO DIALYSIS AGAIN TODAY, SEE DIALYSIS NURSE ASSESSMENT NOTES. PT'S TO BEDSIDE AND UPDATED. PT'S NIECE ,EDWARD, REQUESTED AN UPDATE, PT STATED THAT EDWARD IS OK TO RECIEVE UPDATES. EDWARD'S NUMBER IS [phone]. FLUID RESTRICTION REMAINED IN PLACE, 700 ML DURING DAY AND 300 ML AT NIGHT.
[2024-03-02] MEDS ORDERED: Amiodarone HCl 200 MG Tab PO SCH (21:00)
[2024-03-02] MEDS ORDERED: Heparin Sodium,Porcine 5,000 UNIT/0.5 ML SDV SC SCH (21:00)
[2024-03-03] VITALS (12 sets, daily range): BP systolic 95–141; BP diastolic 46–88
[2024-03-03 05:39] LABS: Hematocrit 31.5 % (37.0-53.0); Mean Corpuscular HGB 31.3 pg (26.0-34.0); Mean Corpuscular HGB Conc 31.7 g/dL (31.5-36.5); Mean Corpuscular Volume 98 fL (80-100); Mean Platelet Volume 11.8 fL (9.1-12.4); Platelet Count 203 K/mm3 (150-400); RDW Coefficient Variation 13.3 % (11.7-14.2); RDW Standard Deviation 47.1 fL (35.1-46.3); White Blood Cell Count 9.48 K/mm3 (4.00-11.30)
[2024-03-03 06:15] LABS: Magnesium, Blood 2.4 mg/dL (1.6-2.4)
[2024-03-03 06:16] LABS: Albumin, Blood 2.9 g/dL (3.4-5.0); Anion Gap 11 mmol/L (3-11); Blood Urea Nitrogen 40 mg/dL (8-24); CO2, Blood 32 mmol/L (21-32); Calcium, Blood 9.2 mg/dL (8.5-10.1); Chloride, Blood 101 mmol/L (98-108); Creatinine, Blood 6.67 mg/dL (0.60-1.20); Glomerular Filtration Rate 9 (60-); Glucose, Blood 100 mg/dL (70-99); Phosphorus, Blood 6.2 mg/dL (2.5-4.9); Potassium, Blood 4.6 mmol/L (3.5-5.5); Sodium, Blood 139 mmol/L (136-145)
--- NOTE | 2024-03-03 06:24 | NUR ---
SHIFT SUMMARY ASSUMED CARE OF PATIENT AT 1900. PATIENT ALERT AND ORIENTED x4, DENIES PAIN/DISCOMFORT. CONVERTED TO SR ON TELE AFTER EVENING MEDS GIVEN. BP STABLE. PATIENT HAD 2 SHORT RUNS OF NONSUSTAINED VTACH OVERNIGHT, MD AWARE. SPO2 > 90% ON 4L O2 VIA NC. FREE WATER RESTRICTION OF 1000ML PER DAY. OLIGURIC, PATIENT ON HD. BLOOD GLUCOSE STABLE. NO OTHER ACUTE EVENTS OVERNIGHT.
[2024-03-03] MEDS ORDERED: Metoprolol Succinate 25 MG TABCR PO SCH (09:00)
--- NOTE | 2024-03-03 09:55 | NUR ---
UPDATE PT TAKEN DOWN TO DIALYSIS FOR TREATMENT. WILL AWAIT RETURN.
--- NOTE | 2024-03-03 12:05 | NUR ---
UPDATE PT RETURNED FROM DIALYSIS. VS STABLE. BP STABLE. HR REMAINS NSR. PT TITRATED TO ROOM AIR AND HOME O2 EVAL ORDERED.
[2024-03-03] MEDS ORDERED: CEFU500T30 PO (12:42)
[2024-03-03] MEDS ORDERED: AMIODARONE HCL400 M2 PO (12:43)
[2024-03-03] MEDS ORDERED: ENTRESTO 24 MG1 EACH PO (12:44)
[2024-03-03] MEDS ORDERED: JARDIANCE10 MG PO (12:44)
[2024-03-03] MEDS ORDERED: METO25ER PO (12:45)
--- NOTE | 2024-03-03 14:00 | NUR ---
UPDATE PT PROVIDED DC INSTRUCTIONS AND EDUCATED ON NEW MEDICATIONS. ALL QUESTIONS ANSWERED. UNABLE TO REACH PT'S SPOUSE FOR RIDE HOME. [facility] CALLED AND [facility] RIDE SET UP FOR PATIENT. PT DRESSED AND BROUGHT TO PATIENT ENTRANCE TO TAX[facility] WITH ALL OF HIS BELONGINGS.
[2024-03-10] MEDS ORDERED: Amiodarone HCl 200 MG Tab PO SCH (09:00)
== END 2024-03-03 14:03 | disposition home or self-care (01) | DRG 640 ==
LOC: ER 02:59 → ERHOLD 05:43 → PCU 11:33
PROVIDERS: Internal Medicine; Internal Medicine Nephrology; Student in an Organized Health Care Education/Training Program; ADMIT Student in an Organized Health Care Education/Training Program
PROC: 5A1D70Z Performance of Urinary Filtration, Intermittent, Less than 6 Hours Per Day (ICD-10-PCS; principal; 2024-02-29)
DX: E87.70 Fluid overload, unspecified (principal); G93.41 Metabolic encephalopathy; I50.21 Acute systolic (congestive) heart failure; N18.6 End stage renal disease; J96.02 Acute respiratory failure with hypercapnia; J96.01 Acute respiratory failure with hypoxia; J84.9 Interstitial pulmonary disease, unspecified; N25.81 Secondary hyperparathyroidism of renal origin; E46 Unspecified protein-calorie malnutrition; I48.92 Unspecified atrial flutter; I42.0 Dilated cardiomyopathy; I13.2 Hypertensive heart and chronic kidney disease with heart failure and with stage 5 chronic kidney disease, or end stage renal disease; E87.5 Hyperkalemia; I16.0 Hypertensive urgency; D63.1 Anemia in chronic kidney disease; N40.0 Benign prostatic hyperplasia without lower urinary tract symptoms; Z99.2 Dependence on renal dialysis; E78.5 Hyperlipidemia, unspecified; Z98.890 Other specified postprocedural states; Z88.0 Allergy status to penicillin; Z79.899 Other long term (current) drug therapy; I48.0 Paroxysmal atrial fibrillation; Z86.73 Personal history of transient ischemic attack (TIA), and cerebral infarction without residual deficits; K44.9 Diaphragmatic hernia without obstruction or gangrene; Z87.19 Personal history of other diseases of the digestive system; Z86.19 Personal history of other infectious and parasitic diseases; Z87.891 Personal history of nicotine dependence; E83.39 Other disorders of phosphorus metabolism; Z68.23 Body mass index [BMI] 23.0-23.9, adult
CPT/HCPCS: 0202U; 0241U; 36415; 71045; 80053; 80069; 82607; 82746; 82803; 82947; 83605; 83735; 83880; 84100; 84145; 84443; 85014; 85018; 85025; 85027; 85610; 85730; 87040; 93005; 93010; 93306; 94640; 94644; 94645; 94660; 94664; 94760; 94761; 94762; 96374; 99285-25; A9270; J0282; J0456; J0696; J0881; J1160; J1644; J2919; J7050; J7060